=== PATIENT | female | born 1950 | race Two or more races ===

== ENCOUNTER 2018-01-04 11:23 | Inpatient (IN) | payer MEDICAID ==
[~2018-01-04] VITALS: Ht 157.5 cm; Wt 64.4 kg
--- NOTE | 2018-01-04 11:40 | NUR ---
Recieved pt to ed bed 14 at this time. Pt was bb RA fro [facility] for SOB and fever x 1 day. Pt was hypoxic at 82%RA upon assessment. Placed patient on O2 via nasal cannula. Afebrile at this time. Pt is a/ox3, placed on contcardiac and pox monitoring. All needs are attended, kept warm and comfortable. Noted a 2 lumen PICC line to RT upper arm.
[2018-01-04 12:07] LABS: CALCIUM, SERUM 8.2 mg/dL (8.5-10.1); CARBON DIOXIDE 29 mmol/L (21-32); CHLORIDE 103 mmol/L (98-107); CREATININE 0.5 mg/dL (0.6-1.3); GLUCOSE 156 mg/dL (74-106); POTASSIUM 3.8 mmol/L (3.5-5.1); SODIUM SERUM 138 mmol/L (136-145); UREA NITROGEN, BLOOD 9 mg/dL (7-18)
[2018-01-04 12:13] LABS: ALANINE AMINOTRANSFERASE 71 U/L (12-78); ALBUMIN 2.3 g/dL (3.4-5.0); ALKALINE PHOSPHATASE 202 U/L (46-116); ASPARTATE AMINOTRANSFERASE 33 U/L (15-37); BILIRUBIN,DIRECT 0.2 mg/dL (0.0-0.2); BILIRUBIN,TOTAL 0.4 mg/dL (0.2-1.0); TOTAL PROTEIN, SERUM 6.5 g/dL (6.4-8.2)
[2018-01-04 12:15] LABS: INR 1.44 (0.85-1.15); TROPONIN I < 0.017 ng/mL (0.00-0.056)
[2018-01-04 12:17] LABS: BASOPHILS % (AUTO) 0.3 % (0.0-2.0); EOSINOPHILS % (AUTO) 0.6 % (0.0-6.0); HEMATOCRIT 25 % (33-45); HEMOGLOBIN 8.2 g/dL (11.5-14.8); LYMPHOCYTES # (AUTO) 0.6 /CMM (0.8-4.8); LYMPHOCYTES % (AUTO) 11.3 % (20.0-44.0); MEAN CORPUSCULAR HGB CONC 33 g/dl (31.0-36.0); MEAN CORPUSCULAR VOLUME 90 fL (82-100); MONOCYTES # (AUTO) 0.3 /CMM (0.1-1.30); MONOCYTES % (AUTO) 5.3 % (2.0-12.0); NEUTROPHILS # (AUTO) 4.4 /CMM (1.8-8.9); NEUTROPHILS % (AUTO) 82.5 % (43.0-81.0); PLATELET COUNT (AUTO) 229 /CMM (150-450); RDW COEFFICIENT OF VARIATION 14.2 (11.5-15.0); RED BLOOD CELL COUNT(AUTO) 2.78 MIL/uL (4.0-5.2); WHITE BLOOD COUNT (AUTO) 5.4 K/uL (4.3-11.0)
[2018-01-04] MEDS ORDERED: PANT40TA2 PO (12:35)
[2018-01-04] MEDS ORDERED: NA P133E RC (12:35)
[2018-01-04] MEDS ORDERED: BENA40TA8 PO (12:35)
[2018-01-04] MEDS ORDERED: ACET-868 PO (12:35)
[2018-01-04] MEDS ORDERED: ASPI-1169 PO (12:35)
[2018-01-04] MEDS ORDERED: MULT-213 PO (12:35)
[2018-01-04] MEDS ORDERED: AMLO10TA6 PO (12:35)
[2018-01-04] MEDS ORDERED: GABA-534 PO (12:35)
[2018-01-04] MEDS ORDERED: BISA10SU8 RC (12:35)
[2018-01-04] MEDS ORDERED: ASCO500T9 PO (12:35)
[2018-01-04] MEDS ORDERED: ACET-907 PO (12:35)
[2018-01-04] MEDS ORDERED: MAGN400O6 PO (12:35)
[2018-01-04] MEDS ORDERED: INSU100I26 SQ ×2 (12:35)
[2018-01-04] MEDS ORDERED: ZINC220T PO (12:35)
[2018-01-04] MEDS ORDERED: SODI1TAB3 PO (12:35)
[2018-01-04] MEDS ORDERED: ATOR40TA PO (12:35)
--- NOTE | 2018-01-04 13:03 | NUR ---
CALLED NURSE SUP FOR TELE BED
--- NOTE | 2018-01-04 13:26 | NUR ---
PAGED EPIC FOR PANEL
[2018-01-04] MEDS ORDERED: VANCOMYCIN 1 GM in IV D5W 250 ML IV ONE (14:00)
[2018-01-04] MEDS ORDERED: PIPERACILLIN /TAZOBACTAM 3.375 G in IV D5W 50 ML IV ONE (14:00)
--- NOTE | 2018-01-04 14:46 | NUR ---
REPORT GIVEN TO HINA MARTINEZ FOR CONT OF CARE.
--- NOTE | 2018-01-04 15:20 | NUR ---
PT TRANSFERRED TO FLOOR VIA ACLS PROTOCOL.
[2018-01-04 15:52] VITALS: BP 117/65
--- NOTE | 2018-01-04 16:15 | NUR ---
ADMISSION NOTES PATIENT ADMITTED FROM ER TELE ON Dx. OF PNEUMONIA. PATIENT FEMALE, ALBANIAN SPEAKER, A/O X3. TELE MONITOR ON . PATIENT ON 02-2L NC, NO C/O ACUTE RESPIRATORY DISTRESS, NO SOB AT THIS TIME. PATIENT WAS C/O PAIN HEADACHE AND RADIATING TO DOWN NECK AREA. V/S TAKEN BP-117/65, P-82, R-18, T-98.2, O2-2L NC. SKIN ASSESSMENT DONE. PATIENT HAS LEFT BKA, RIGHT FOOT 3-RD, AND 4-TH TOES AMPUTATED, PICTURE TAKEN, ALSO PATIENT HAS A EDEMA LEFT ARM, AND RIGHT FOOT. PICC LINE ON RIGHT UPPER ARM INTACT. PATIENT INCONTINENT USING DIAPER. NEEDS ATTENDED AND ANTICIPATED. CALL LIGHT WITHIN TO REACH. HANNA DISINTEGRATOR OPERATOR AWARE OF NEW PATIENT AND NEW MEDICATION. CONTINUED MONITORING.,
[2018-01-04 16:40] VITALS: BP 117/65
[2018-01-04] MEDS ORDERED: ACETYLCYSTEINE 10% SOLN 400 MG/4 ML VIAL NEB SCH (17:30)
[2018-01-04] MEDS ORDERED: KETOROLAC TROMETHAMINE INJ 30 MG/ML VIAL IV ONE (19:00)
--- NOTE | 2018-01-04 19:01 | NUR ---
RN NOTES PATIENT WAS C/O HEADACHE, AND PAIN GOING DOWN TO NECK AREA / PER PATIENT REQUEST. NOTIFIED HANNA HARPOONER AND GET ORDER TORADOL 10 MG IV X1 NOW. ORDER TAKEN AND CARRIED OUT.
--- NOTE | 2018-01-04 19:10 | NUR ---
RN NOTES PATIENT STABLE EATING DINNER AT THIS TIME. ENDORSED ONCOMING NURSER FOR ADAM.
[2018-01-04] MEDS ORDERED: KETOROLAC TROMETHAMINE INJ 30 MG/ML VIAL IV PRN (19:30)
[2018-01-04] MEDS ORDERED: DEXTROSE 50%-WATER 50 ML DISP.SYRIN IV PRN (19:30)
[2018-01-04 19:37] LABS: C-REACTIVE PROTEIN 2.5 mg/dL (0.0-0.9)
--- NOTE | 2018-01-04 19:45 | NUR ---
HALL CLEANER NOTES RECEIVED PT SITTING UPRIGHT IN BED. AWAKE AND RESPONSIVE. RESPIRATIONS ARE EVEN AND UNLABORED, NOT IN ANY ACUTE DISTRESS NOTED. DENIES ANY PAIN AT THIS TIME. IV SITE INTACT, DRESSING KEPT CLEAN AND DRY. SAFETY MEASURES ARE IN PLACE. BED IS KEPT IN ITS LOCKED POSITION. WILL CONTINUE TO MONITOR AND REPOSITION THROUGHOUT SHIFT.
[2018-01-04 20:00] VITALS: BP 130/63
[2018-01-04] MEDS: LEVOFLOXACIN 500 MG /D5W 100ML 500 MG in PREMIX 1 EA IV SCH (20:36)
[2018-01-04] MEDS ORDERED: PIPERACILLIN /TAZOBACTAM 3.375 G in IV NS 0.9% 50 ML IV SCH (21:00)
[2018-01-04] MEDS: BLOOD SUGAR DIAGNOSTIC 1 EACH STRIP IN SCH (22:06)
[2018-01-04] MEDS: INSULIN REGULAR, HUMAN 100 UNIT/ML 3 ML VIAL SQ PRN (22:10)
[2018-01-05] VITALS: BP 121/64
[2018-01-05] MEDS: ACETYLCYSTEINE 10% SOLN 400 MG/4 ML VIAL NEB SCH ×4 (00:30→15:30)
[2018-01-05] MEDS: IPRATROPIUM NEB FS 0.5 MG/2.5 ML AMPUL.NEB NEB PRN (03:14)
[2018-01-05] MEDS: ALBUTEROL HALF STRENGTH 1.25 MG/3 ML VIAL.NEB NEB PRN (03:14)
[2018-01-05 04:00] VITALS: BP 144/75
--- NOTE | 2018-01-05 06:12 | NUR ---
SPIRITUAL MINISTER CLOSING NOTES ALL DUE MEDS GIVEN, NEEDS MET AND RENDERED. AWAKE AND RESPONSIVE, RESPIRATIONS ARE EVEN AND UNLABORED, NOT IN ANY ACUTE DISTRESS NOTED. DENIES ANY PAIN AT THIS TIME. BILATERAL HEELS AND ELBOWS ARE KEPT OFFLOADED, REPOSITIONED Q2H TO PREVENT FURTHER SKIN INJURIES AND FOR COMFORT. PICC LINE TO FILIPPO INTACT, DRESSING KEPT CLEAN AND DRY. SAFETY MEASURES ARE IN PLACE. BED IS IN ITS LOCKED AND LOWEST POSITION. REMINDED PT TO USE CALL LIGHT WHEN ASSISTANCE IS NEEDED, CALL LIGHT IS LEFT WITHIN REACH. WILL ENDORSE TO NEXT SHIFT FOR CONTINUITY OF CARE.
[2018-01-05] MEDS: BLOOD SUGAR DIAGNOSTIC 1 EACH STRIP IN SCH ×4 (06:36→22:39)
[2018-01-05 07:27] LABS: CALCIUM, SERUM 8.1 mg/dL (8.5-10.1); CREATININE 0.6 mg/dL (0.6-1.3); MAGNESIUM 1.9 mg/dL (1.8-2.4); PHOSPHORUS 4.1 mg/dL (2.5-4.9); POTASSIUM 3.9 mmol/L (3.5-5.1)
[2018-01-05 07:28] LABS: BASOPHILS % (AUTO) 0.1 % (0.0-2.0); HEMATOCRIT 28 % (33-45); HEMOGLOBIN 9.2 g/dL (11.5-14.8); LYMPHOCYTES # (AUTO) 0.7 /CMM (0.8-4.8); LYMPHOCYTES % (AUTO) 9.7 % (20.0-44.0); MEAN CORPUSCULAR HGB CONC 33 g/dl (31.0-36.0); MEAN CORPUSCULAR VOLUME 90 fL (82-100); MONOCYTES # (AUTO) 0.3 /CMM (0.1-1.30); MONOCYTES % (AUTO) 4.9 % (2.0-12.0); NEUTROPHILS # (AUTO) 5.8 /CMM (1.8-8.9); NEUTROPHILS % (AUTO) 84.3 % (43.0-81.0); PLATELET COUNT (AUTO) 238 /CMM (150-450); RDW COEFFICIENT OF VARIATION 14.5 (11.5-15.0); RED BLOOD CELL COUNT(AUTO) 3.07 MIL/uL (4.0-5.2); WHITE BLOOD COUNT (AUTO) 6.9 K/uL (4.3-11.0)
--- NOTE | 2018-01-05 07:41 | NUR ---
DIRECTOR AGRICULTURAL SERVICES/OPENING NOTES RECEIVED PT. IN BED A&OX4. BREATHING UNLABORED ON OXYGEN AT 4L/MIN VIA NASAL CANNULA. PT. C/O PAIN LEFT SIDE OF HEAD. PAIN WAS ASSESSED, AND OFFERED PAIN MEDICATION. PT. HAS A CENTRAL LINE. BED IS IN LOWEST, AND LOCKED POSITION. 2 SIDE RAILS UP, AND CALL LIGHT WITHIN REACH. INSTRUCTED PT. TO USE CALL LIGHT FOR ASSISTANCE. ALL NEEDS MET. WILL CONTINUE TO ASSESS AND MONITOR.
[2018-01-05 08:00] VITALS: BP 143/76
--- NOTE | 2018-01-05 10:30 | NUR ---
RN NOTES PT. WAS SEEN AND EXAMINED BY VENANCIO, WOUND CARE, RN. CLEANED RIGHT FOOT WOUND WITH NORMAL SALINE, APPLIED XERFORM, MEPILEX AND SECURED WITH KRELIX WRAP. PICTURE TAKEN OF THE RIGHT ACHILLES TENDON REGION DUE TO SCAB ON ASSESSMENT.
--- NOTE | 2018-01-05 10:47 | NUR ---
WOUND CARE CONSULT: PT PRESENTS WITH RT FOOT SURGICAL SITE, MULTIPLE SCARS ON SACRAL/BUTTOCKS AREAS AND ON LATERAL LOWER LEGS, RASH TO LOWER BACK, PRESENT ON ADMISSION. LEFT LOWER LEG HEALED STUMP NOTED. RECOMMENDATIONS MADE FOR SKIN PROTECTION AND WOUND CARE. RECOMMEND SURGICAL/DPM CONSULT. WILL SEE PRN. CURRENT HOWARD SCORE IS 13. MD IN AGREEMENT WITH PLAN OF CARE. Addendum: 01/05/18 at 1049 by VENANCIO FITZPATRICK WNDNU Amended: Links added.
[2018-01-05] MEDS ORDERED: Z GUARD REMEDY 2 OZ OINT TP PRN (11:00)
[2018-01-05] MEDS: Z GUARD REMEDY 2 OZ OINT TP SCH (12:05)
[2018-01-05] MEDS: CLOTRIMAZOLE 1% 15 GM TUBE TP SCH ×2 (12:05→17:04)
[2018-01-05 16:00] VITALS: BP 150/70
[2018-01-05] MEDS: BOOST GLUCOSE CONTROL VANILLA 237 ML BOX PO SCH (17:03)
[2018-01-05] MEDS: INSULIN REGULAR, HUMAN 100 UNIT/ML 3 ML VIAL SQ PRN ×2 (17:14→22:42)
--- NOTE | 2018-01-05 18:16 | NUR ---
RN NOTES TRANSFER/CLOSING NOTES PT. LEFT 3RD FLOOR WITH JUAN CRUZ AND JOHN CEBALLOS IN MEDICALLY STABLE CONDITION. PT. WAS TRANSFERRED TO 2ND FLOOR TO ROOM 208 BED 1, FROM ROOM 309 BED 1 WITHOUT COMPLICATIONS, REPORT AND CHART WAS HANDED OVER TO WILIAN. PT. IS IN BED A&OX4. BREATHING UNLABORED ON ROOM AIR. NO S/S OF SOB. NO S/S OF ACUTE DISTRESS. IV ACCESS ON RIGHT ANTECUBITAL SITE INTACT, AND PATENT. ALL NEEDS MET. WILL ENDORSE REPORT TO NURSE. Addendum: 01/05/18 at 1824 by MITUL RAMIREZ RN CORRECTION: NOTE FOR DIFFERENT PATIENT ABOVE.
--- NOTE | 2018-01-05 18:50 | NUR ---
RN CLOSING NOTES PT. IS IN BED A&OX4. BREATHING UNLABORED ON OXYGEN AT 3L/MIN VIA NASAL CANNULA. PT. HAS A CENTRAL LINE INTACT AND PATENT. WOUND CARE CONSULT PERFORMED, AND WOUND CARE PERFORMED AT BEDSIDE, PT. TOLERATED WELL. BED IS IN LOWEST, AND LOCKED POSITION. 2 SIDE RAILS UP, AND CALL LIGHT WITHIN REACH. INSTRUCTED PT. TO USE CALL LIGHT FOR ASSISTANCE. ALL NEEDS MET. WILL ENDORSE REPORT TO NURSE.
--- NOTE | 2018-01-05 19:15 | NUR ---
MS RN OPENING NOTE RECEIVED PATIENT IN BED, ALERT ORIENTED X3, ON 3L OXYGEN VIA NASAL CANNULA, RESPIRATIONS EVEN AND UNLABORED, IN NO APPARENT DISTRESS OR DISCOMFORT, DENIES PAIN AND SOB AT THIS TIME. PATIENT IS TAJIK SPEAKING MAINLY BUT ABLE TO COMMUNICATE NEEDS IN ALBANIAN WELL. PATIENT WITH RIGHT UPPER ARM PICC LINE, PATENT AND INTACT. PATIENT ON BEDREST, INCONTINENT WITH DIAPER. KEPT CLEAN AND COMFORTABLE. PATIENT TO BE TRANSFERRED TO [facility] UNIT ON A DIFFERENT FLOOR ANY MOMENT. SAFETY MEASURES IN PLACE, BED IN LOW LOCKED POSITION, SIDE RAILS UPX2, CALL LIGHT WITHIN EASY REACH WILL CONTINUE TO MONITOR UNTIL TRANSFERRED.
[2018-01-05 20:30] VITALS: BP 144/73
--- NOTE | 2018-01-05 20:30 | NUR ---
MS RN NOTE PT. WAS TRANSFERRED TO 2ND FLOOR TO ROOM 200 BED 1, FROM ROOM 308 BED 2 WITHOUT COMPLICATIONS, WITH THE ESCORT OF JUAN RUSSO IN CHARGE AND JOHN CORDERO. REPORT AND CHART WAS GIVEN TO JUAN EDGAR. TRANSFERRED PATIENT IN BED A&OX4. ON 3L OF OXYGEN TOLERATING WELL, NO SIGN OF APPARENT DISTRESS OR DISCOMFORT. DENIES SOB AND PAIN AT THIS MOMENT. RIGHT UPPER ARM PICC LINE, PATENT AND INTACT. IN STABLE CONDITION, ALL NEEDS ATTENDED AND MET. SAFETY MEASURES OBSERVED AND APPLIED AT ALL TIMES.
--- NOTE | 2018-01-05 20:35 | NUR ---
MS/RN OPENING NOTES PT RECEIVED FROM 3W ROOM 308-2. PT IS HEBREW SPEAKING, A/OX3. PLACED ON 4L O2 VIA NC, BREATHING EVEN AND UNLABORED. DENIES SOB OR PAIN AT THIS TIME. FILIPPO PICC LINE PATENT AND INTACT. DRESSING TO RIGHT FOOT C/D/I. ORIENTED PT TO ROOM AND CALL LIGHT AND MADE AWARE OF WHAT ROOM AND FLOOR SHE IS NOW ON. BED IN LOW/LOCKED POSITION WITH CALL LIGHT IN REACH. SIDE RAILS UPX2. WILL CONTINUE TO MONITOR
[2018-01-05] MEDS: LEVOFLOXACIN 500 MG /D5W 100ML 500 MG in PREMIX 1 EA IV SCH (20:57)
[2018-01-05 21:00] VITALS: BP 144/73
--- NOTE | 2018-01-05 22:00 | NUR ---
MS/RN NOTES BLOOD CWCEO=[id number], ADMINISTERED 3 UNITS OF INSULIN PER SLIDING SCALE. SNACKS ENCOURAGED. WILL MONITOR FOR S/S OF HYPO/HYPERGLYCEMIA.
--- NOTE | 2018-01-06 02:00 | NUR ---
MS/RN NOTES ASKED DR. HOUGH IF SHE COULD REVIEW AND RECONCILE PT'S HOME MEDICATIONS.
[2018-01-06] MEDS ORDERED: HYDROGEL DRESSING 90 GM TUBE TP PRN (06:30)
[2018-01-06] MEDS: BLOOD SUGAR DIAGNOSTIC 1 EACH STRIP IN SCH ×4 (06:52→21:36)
[2018-01-06] MEDS: INSULIN REGULAR, HUMAN 100 UNIT/ML 3 ML VIAL SQ PRN ×4 (06:52→21:39)
--- NOTE | 2018-01-06 07:00 | NUR ---
REPORT RECEIVED AT THE BEDSIDE. PATIENT IS SLEEPING. NO SOB OR DISTRESS NOTED AT THIS TIME. PATIENT DOES NOT APPEAR TO BE IN PAIN, NO FACIAL GRIMACE NOTED. BED IN A LOW POSITION, CALL LIGHT WITHIN PATIENT REACH. WILL CONTINUE TO MONITOR.
--- NOTE | 2018-01-06 07:15 | NUR ---
MS/RN CLOSING NOTES PT AWAKE, A/OX3. MARSHALLESE SPEAKING. ON 3L O2 VIA NC, BREATHING EVEN AND UNLABORED. DENIES SOB AND PAIN AT THIS TIME. FILIPPO PICC LINE PATENT AND INTACT. LEFT BKA STUMP AND RIGHT HEEL ELEVATED AT ALL TIMES. TURNED/REPOSITIONED Q2H. KEPT PT CLEAN THROUGHOUT SHIFT. ALL NEEDS MET, NO SIGNIFICANT CHANGES OVERNIGHT. PT SIGNED CONSENT FOR RIGHT FOOT WOUND DEBRIDEMENT, PT SIGNED WITH ONLY AN "X". WITNESSED BY JUAN HORN. PT VERBALIZED UNDERSTANDING OF PROCEDURE AND STATED THAT "THE DOCTOR EXPLAINED THE PROCEDURE YESTERDAY". BED IN LOW/LOCKED POSITION WITH CALL LIGHT IN REACH. SIDE RAILS UPX2. ENDORSED TO DAY SHIFT JUAN MEDINA.
[2018-01-06] MEDS: ALBUTEROL HALF STRENGTH 1.25 MG/3 ML VIAL.NEB NEB PRN ×2 (07:38→15:45)
[2018-01-06] MEDS: ACETYLCYSTEINE 10% SOLN 400 MG/4 ML VIAL NEB SCH ×3 (07:38→23:48)
[2018-01-06 08:00] VITALS: BP 145/71
[2018-01-06] MEDS: BOOST GLUCOSE CONTROL VANILLA 237 ML BOX PO SCH ×2 (08:00→16:59)
[2018-01-06] MEDS: HYDROGEL DRESSING 90 GM TUBE TP SCH (09:17)
[2018-01-06] MEDS: CLOTRIMAZOLE 1% 15 GM TUBE TP SCH ×2 (09:17→16:59)
[2018-01-06] MEDS: Z GUARD REMEDY 2 OZ OINT TP SCH (09:17)
--- NOTE | 2018-01-06 09:25 | NUR ---
PT REFUSING BOOST. STATES THAT SHE IS NOT FEELING WELL AND JUST DOESN'T WANT IT NOW.
--- NOTE | 2018-01-06 09:27 | NUR ---
PREPAIRED CONSENT FOR US GUIDED THORACENTESIS. WITH THE HELP OF JOHN COWAN, TRANSLATING FOR THE PATIENT IN ESTONIAN, WE EXPLAINED THE PROCEDURE AND IMPORTANCE TO THE PATIENT. THE PATIENT STATES SHE DOES NOT WANT TO SIGN ANYTHING UNTIL HER DAUGHTER COMES IN TO SPEAK WITH THE NURSE. ASKED THE PATIENT IF I COULD CALL HER DAUGHTER TO ASK. PATIENT STATES SHE WANTS HER DAUGHTER HERE WHEN SHE SIGNS.
--- NOTE | 2018-01-06 09:41 | NUR ---
CALLED PATIENT'S DAUGHTER NAZ TO EXPLAIN THE THORACENTESIS PROCEDURE AND ASK WHEN SHE WOULD BE COMING IN TO SEE HER MOTHER AND SEE IF SHE WOULD SIGN THE CONSENT FOR THE PROCEDURE. DAUGHTER STATES SHE IS TAKING CARE OF SOME ERRANDS AT THE MOMENT, BUT WILL BE IN AROUND LUNCH TIME TO SEE HER MOTHER AND TALK ABOUT THE PROCEDURE. WILL FOLLOW UP WHEN DAUGHTER IS AVAILABLE.
--- NOTE | 2018-01-06 09:44 | NUR ---
CALLED [employer] AND SPOKE TO MARYANN. EXPLAINED THAT THE PATIENT IS NOT YET WILLING TO SIGN THE CONSENT AND WANTS TO WAIT FOR HER DAUGHTER. MARYANN SAYS TO INFORM THEM WHEN THE CONSENT IS SIGNED AND THEN THEY WILL PREPARE. MARYANN STATES THAT IF THE CONSENT ISN'T SIGNED UNTIL AFTER TWO PM THAT THE PROCEDURE WILL HAVE TO BE RESCHEDULED FOR TOMORROW. WILL INFORM
--- NOTE | 2018-01-06 09:45 | NUR ---
0945 PER JUAN MENDES CONSENT NOT SIGNED FOR THORACENTESIS. RN WILL ADVISE WHEN CONSENT IS SIGNED
[2018-01-06 09:51] LABS: BASOPHILS % (AUTO) 0.5 % (0.0-2.0); EOSINOPHILS % (AUTO) 0.9 % (0.0-6.0); HEMATOCRIT 28 % (33-45); HEMOGLOBIN 9.5 g/dL (11.5-14.8); LYMPHOCYTES # (AUTO) 0.9 /CMM (0.8-4.8); LYMPHOCYTES % (AUTO) 10.2 % (20.0-44.0); MEAN CORPUSCULAR HGB CONC 34 g/dl (31.0-36.0); MEAN CORPUSCULAR VOLUME 88 fL (82-100); MONOCYTES # (AUTO) 0.3 /CMM (0.1-1.30); MONOCYTES % (AUTO) 3.8 % (2.0-12.0); NEUTROPHILS # (AUTO) 7.2 /CMM (1.8-8.9); NEUTROPHILS % (AUTO) 84.6 % (43.0-81.0); PLATELET COUNT (AUTO) 263 /CMM (150-450); RDW COEFFICIENT OF VARIATION 13.3 (11.5-15.0); RED BLOOD CELL COUNT(AUTO) 3.12 MIL/uL (4.0-5.2); WHITE BLOOD COUNT (AUTO) 8.5 K/uL (4.3-11.0)
--- NOTE | 2018-01-06 10:46 | NUR ---
TALKED TO DR TOWNSEND ON FLOOR. INFORMED MD ABOUT SITUATION WITH PATIENT CONSENT AND THE NEED FOR A MED RECON. MD SPOKE TO DAUGHTER OVER THE PHONE WITH THE PATIENT, PATIENT AGREES TO SIGN. STATES HE WILL TAKE CARE OF THE MED REC.
[2018-01-06 11:13] LABS: CALCIUM, SERUM 8.2 mg/dL (8.5-10.1); CREATININE 0.5 mg/dL (0.6-1.3); POTASSIUM 3.4 mmol/L (3.5-5.1)
[2018-01-06] MEDS ORDERED: NA PHOS,M-B/NA PHOS,DI-BA 1 EA ENEMA RC PRN (12:30)
[2018-01-06] MEDS ORDERED: BISACODYL SUPP (10 MG) 10 MG/SUPP.RECT SUPP.RECT RC PRN (12:30)
[2018-01-06] MEDS ORDERED: POTASSIUM CHLORIDE 20 MEQ TAB.PRT.SR PO ONE (12:30)
--- NOTE | 2018-01-06 12:37 | NUR ---
WAS ABLE TO GIVE PT POTASSIUM PILL. INFORMED PT OF OTHER MEDICATIONS COMING, NEURONTIN, PATIENT STATES "PLEASE NO I DON'T WANT IT NOW." INFORMED PATIENT OF THE IMPORTANCE, BUT REFUSING.
[2018-01-06] MEDS: GABAPENTIN 300 MG CAPSULE PO SCH ×2 (13:00→16:59)
[2018-01-06] MEDS: SODIUM CHLORIDE 1000 MG TABLET.SOL PO SCH ×2 (13:00→16:59)
[2018-01-06] MEDS: FUROSEMIDE 40 MG/4 ML VIAL IV SCH (13:10)
[2018-01-06] MEDS: ONDANSETRON HCL/PF 4 MG/2 ML VIAL IV PRN (13:18)
--- NOTE | 2018-01-06 14:47 | NUR ---
RECEIVED WORD FROM DR TOWNSEND. OK TO DO IN AND OUT CATH TO OBTAIN URINE SAMPLE. PATIENT IS REFUSING. EXPLAINED THE IMPORTANCE OF THE PROCEDURE TO THE PATIENT, BUT REFUSING. SHE STATES THAT THE LAST TIME SHE HAD ANY CATHETER PLACED, SHE GOT AN INFECTION.
[2018-01-06 16:00] VITALS: BP 102/70
[2018-01-06] MEDS: MAGNESIUM HYDROXIDE 30 ML UDC PO PRN (16:59)
--- NOTE | 2018-01-06 19:08 | NUR ---
NO SIGNIFICANT CHANGES IN PATIENT CONDITION THROUGHOUT THE SHIFT. NO SOB OR DISTRESS NOTED AT THIS TIME. PATIENT DENIES PAIN. BED IN A LOW POSITION, CALL LIGHT WITHIN PATIENT REACH. WILL ENDORSE FOR ADAM.
--- NOTE | 2018-01-06 19:30 | NUR ---
RN NOTES RECEIVED PATIENT IN BED AWAKE, AO X 3, ABLE TO MAKE NEEDS KNOWN. NO ACUTE DISTRESS NOTED. DENIES ANY PAIN AT THIS TIME. PICC LINE PATENT, INTACT; FLUSHED. RIGHT FOOT DRESSING INTACT. SAFETY REMINDERS GIVEN. ON LOW BED WITH BILATERAL UPPER SIDE RAILS UP. CALL MERCADO WITHIN EASY REACH. WILL CONTINUE TO MONITOR.
[2018-01-06 20:00] VITALS: BP 119/73
[2018-01-06] MEDS: LEVOFLOXACIN 500 MG /D5W 100ML 500 MG in PREMIX 1 EA IV SCH (20:48)
[2018-01-06] MEDS: ATORVASTATIN 40 MG TABLET PO SCH (21:36)
[2018-01-06] MEDS: IPRATROPIUM NEB FS 0.5 MG/2.5 ML AMPUL.NEB NEB PRN (23:48)
--- NOTE | 2018-01-07 00:03 | NUR ---
administered mucomyst with atro Addendum: 01/07/18 at 0010 by ELVIS MEADOWS RT Amended: Links added.
--- NOTE | 2018-01-07 06:00 | NUR ---
RN NOTES PATIENT ASLEEP, EASILY AROUSABLE. RESPIRATIONS EVEN. NO SIGNS OF PAIN NOTED. DUE MEDS GIVEN WITH NO ASE NOTED. NEEDS ATTENDED. KEPT CLEAN AND DRY. SAFETY PRECAUTIONS AND COMFORT MEASURES IN PLACE. WILL GIVE REPORT TO DAY SHIFT FOR CONTINUITY OF CARE.
[2018-01-07] MEDS: BLOOD SUGAR DIAGNOSTIC 1 EACH STRIP IN SCH ×4 (06:41→21:29)
[2018-01-07] MEDS: ACETYLCYSTEINE 10% SOLN 400 MG/4 ML VIAL NEB SCH ×3 (07:15→23:30)
--- NOTE | 2018-01-07 07:16 | NUR ---
MUCOMYST NOT AV. WILL F/U WITH PHARMACY. RN AWARE.
--- NOTE | 2018-01-07 07:54 | NUR ---
MS RN OPENING NOTES RECEIVED PT FROM NIGHTSHIFT NURSE IN STABLE CONDITION. PT IS A.O X3. NO SOB OR SIGNS OF DISTRESS NOTED. BREATHING IS EVEN AND UNLABORED. PT IS ON 2L VIA NC AND SATING WELL. NO COUGH NOTED AT THIS TIME. DRESSING TO RIGHT LOWER EXTREMITY NOTED TO BE CLEAN, DRY, AND INTACT. RIGHT UPPER ARM PICC NOTED TO BE PATENT AND INTACT. NO REDNESS OR SIGNS OF INFILTRATION NOTED. BED IN LOW LOCKED POSITION, SIDE RAILS UP X2, CALL LIGHT WITHIN REACH. WILL CONTINUE TO MONITOR
[2018-01-07 08:00] VITALS: BP 131/67
[2018-01-07] MEDS: CLOTRIMAZOLE 1% 15 GM TUBE TP SCH ×2 (08:28→17:12)
[2018-01-07] MEDS: BOOST GLUCOSE CONTROL VANILLA 237 ML BOX PO SCH ×2 (08:28→17:00)
[2018-01-07] MEDS: Z GUARD REMEDY 2 OZ OINT TP SCH (08:29)
[2018-01-07] MEDS: HYDROGEL DRESSING 90 GM TUBE TP SCH (08:29)
[2018-01-07] MEDS: ACETAMINOPHEN W/ CODEINE#3 1 EA TABLET PO SCH (08:31)
[2018-01-07] MEDS: MULTIVIT, IRON, MIN NO. 8, FA 1 TAB PO SCH (08:31)
[2018-01-07] MEDS: GABAPENTIN 300 MG CAPSULE PO SCH ×3 (08:32→17:06)
[2018-01-07] MEDS: AMLODIPINE BESYLATE 10 MG TABLET PO SCH (08:32)
[2018-01-07] MEDS: ZINC SULFATE 220 MG CAPSULE PO SCH (08:32)
[2018-01-07] MEDS: SODIUM CHLORIDE 1000 MG TABLET.SOL PO SCH ×3 (08:32→17:06)
[2018-01-07] MEDS: FUROSEMIDE 40 MG/4 ML VIAL IV SCH (08:33)
[2018-01-07] MEDS: BENAZEPRIL HCL 20 MG TABLET PO SCH (08:33)
[2018-01-07] MEDS: ASPIRIN 81 MG TAB.CHEW PO SCH (08:33)
[2018-01-07] MEDS: ASCORBIC ACID 500 MG TABLET PO SCH (08:33)
[2018-01-07] MEDS: PANTOPRAZOLE 40 MG TABLET.DR PO SCH (08:33)
[2018-01-07] MEDS: MAGNESIUM HYDROXIDE 30 ML UDC PO PRN (09:04)
[2018-01-07 09:38] LABS: CALCIUM, SERUM 8.1 mg/dL (8.5-10.1); CREATININE 0.5 mg/dL (0.6-1.3); POTASSIUM 4.2 mmol/L (3.5-5.1)
[2018-01-07 09:47] LABS: BASOPHILS % (AUTO) 0.6 % (0.0-2.0); EOSINOPHILS % (AUTO) 1.2 % (0.0-6.0); HEMATOCRIT 28 % (33-45); HEMOGLOBIN 9.4 g/dL (11.5-14.8); LYMPHOCYTES # (AUTO) 0.8 /CMM (0.8-4.8); LYMPHOCYTES % (AUTO) 13.6 % (20.0-44.0); MEAN CORPUSCULAR HGB CONC 34 g/dl (31.0-36.0); MEAN CORPUSCULAR VOLUME 90 fL (82-100); MONOCYTES # (AUTO) 0.4 /CMM (0.1-1.30); NEUTROPHILS # (AUTO) 4.8 /CMM (1.8-8.9); NEUTROPHILS % (AUTO) 78.6 % (43.0-81.0); PLATELET COUNT (AUTO) 251 /CMM (150-450); RDW COEFFICIENT OF VARIATION 13.5 (11.5-15.0); RED BLOOD CELL COUNT(AUTO) 3.13 MIL/uL (4.0-5.2); WHITE BLOOD COUNT (AUTO) 6.1 K/uL (4.3-11.0)
[2018-01-07] MEDS: INSULIN REGULAR, HUMAN 100 UNIT/ML 3 ML VIAL SQ PRN ×3 (12:29→21:30)
[2018-01-07 16:00] VITALS: BP 111/60
--- NOTE | 2018-01-07 19:30 | NUR ---
RN NOTES RECEIVED PATIENT IN BED AWAKE, AO X 3, ABLE TO MAKE NEEDS KNOWN. NO ACUTE DISTRESS NOTED. DENIES ANY PAIN AT THIS TIME. NO SYMPTOMS OF HYPER/HYPOGLYCEMIA. FILIPPO PICC LINE PATENT, INTACT; FLUSHED. RIGHT FOOT DRESSING INTACT. SAFETY REMINDERS GIVEN. ON LOW BED WITH BILATERAL UPPER SIDE RAILS UP. CALL MERCADO WITHIN EASY REACH. WILL CONTINUE TO MONITOR.
--- NOTE | 2018-01-07 19:46 | NUR ---
MS RN CLOSING NOTES PT REMAINS IN STABLE CONDITION. ALL NEEDS WERE MET DURING SHIFT AND ORDERS CARRIED OUT ACCORDINGLY. ALL DUE MEDS GIVEN. WOUND AND SKIN CARE RENDERED ORDERED. PICC LINE CARE RENDERED. PICC REMAINS PATENT AND INTACT. BLOOD SUGARS REGULATED WITH INSULIN ADMINISTRATION. PT AWAITING TO BE CLEARED BY DR. GARNER FOR D/C. NO D/C ORDER AT THIS TIME. SRUTHI THE SCANNING TECH MADE AWARE. SAFETY MEASURES REMAIN IN PLACE. WILL ENDORSE TO NIGHTSHIFT NURSE FOR ADAM
[2018-01-07] MEDS: LEVOFLOXACIN (500MG) 500 MG TABLET PO SCH (19:59)
[2018-01-07 20:00] VITALS: BP 101/54
[2018-01-07] MEDS: ATORVASTATIN 40 MG TABLET PO SCH (21:32)
[2018-01-08] MEDS: BLOOD SUGAR DIAGNOSTIC 1 EACH STRIP IN SCH ×4 (06:35→21:32)
[2018-01-08 06:38] LABS: CALCIUM, SERUM 7.8 mg/dL (8.5-10.1); CREATININE 0.6 mg/dL (0.6-1.3); POTASSIUM 4.2 mmol/L (3.5-5.1)
[2018-01-08 06:51] LABS: BASOPHILS % (AUTO) 0.5 % (0.0-2.0); HEMATOCRIT 26 % (33-45); HEMOGLOBIN 8.8 g/dL (11.5-14.8); LYMPHOCYTES # (AUTO) 0.9 /CMM (0.8-4.8); MEAN CORPUSCULAR HGB CONC 34 g/dl (31.0-36.0); MEAN CORPUSCULAR VOLUME 89 fL (82-100); MONOCYTES # (AUTO) 0.4 /CMM (0.1-1.30); MONOCYTES % (AUTO) 5.1 % (2.0-12.0); NEUTROPHILS # (AUTO) 5.9 /CMM (1.8-8.9); NEUTROPHILS % (AUTO) 80.4 % (43.0-81.0); PLATELET COUNT (AUTO) 240 /CMM (150-450); RDW COEFFICIENT OF VARIATION 14.6 (11.5-15.0); RED BLOOD CELL COUNT(AUTO) 2.96 MIL/uL (4.0-5.2); WHITE BLOOD COUNT (AUTO) 7.4 K/uL (4.3-11.0)
--- NOTE | 2018-01-08 07:30 | NUR ---
RN OPEN NOTES RECEIVED REPORT FROM MANAGER TELEMARKETING RN. PATIENT IS IN BED. NO SIGNS AND SYMPTOMS OF DISTRESS. BED IN LOW POSITION, LOCKED AND TWO SIDE RAILS ARE UP. CALL LIGHT WITHIN REACH FOR SAFETY. WILL CONTINUE TO MONITOR PATIENT
[2018-01-08] MEDS: ACETYLCYSTEINE 10% SOLN 400 MG/4 ML VIAL NEB SCH ×3 (07:35→23:30)
[2018-01-08 08:36] VITALS: BP 131/66
[2018-01-08] MEDS: GABAPENTIN 300 MG CAPSULE PO SCH ×3 (08:38→16:42)
[2018-01-08] MEDS: ASCORBIC ACID 500 MG TABLET PO SCH (08:38)
[2018-01-08] MEDS: MULTIVIT, IRON, MIN NO. 8, FA 1 TAB PO SCH (08:38)
[2018-01-08] MEDS: SODIUM CHLORIDE 1000 MG TABLET.SOL PO SCH ×3 (08:38→16:42)
[2018-01-08] MEDS: ACETAMINOPHEN W/ CODEINE#3 1 EA TABLET PO SCH (08:38)
[2018-01-08] MEDS: ZINC SULFATE 220 MG CAPSULE PO SCH (08:38)
[2018-01-08] MEDS: PANTOPRAZOLE 40 MG TABLET.DR PO SCH (08:38)
[2018-01-08] MEDS: ASPIRIN 81 MG TAB.CHEW PO SCH (08:38)
[2018-01-08] MEDS: BENAZEPRIL HCL 20 MG TABLET PO SCH (08:39)
[2018-01-08] MEDS: FUROSEMIDE 40 MG/4 ML VIAL IV SCH (08:39)
[2018-01-08] MEDS: AMLODIPINE BESYLATE 10 MG TABLET PO SCH (08:39)
[2018-01-08] MEDS: BOOST GLUCOSE CONTROL VANILLA 237 ML BOX PO SCH ×2 (08:41→16:42)
[2018-01-08] MEDS: Z GUARD REMEDY 2 OZ OINT TP SCH (08:41)
[2018-01-08] MEDS: HYDROGEL DRESSING 90 GM TUBE TP SCH (08:41)
[2018-01-08] MEDS: CLOTRIMAZOLE 1% 15 GM TUBE TP SCH ×2 (08:41→16:42)
[2018-01-08] MEDS: INSULIN REGULAR, HUMAN 100 UNIT/ML 3 ML VIAL SQ PRN ×2 (12:16→21:35)
[2018-01-08] MEDS ORDERED: LEVO500T75 PO (12:20)
[2018-01-08] MEDS: MAGNESIUM HYDROXIDE 30 ML UDC PO PRN (15:06)
[2018-01-08 16:11] VITALS: BP 109/53
--- NOTE | 2018-01-08 18:56 | NUR ---
RN CLOSING NOTES PATIENT IS IN BED. AWAKE. NO SIGNS AND SYMPTOMS OF DISTRESS. ALL CARE WAS PROVIDED. PATIENT KEPT DRY AND CLEAN. BED IN LOW POSITION, LOCKED AND TWO SIDE RAILS ARE UP. CALL LIGHT WITHIN REACH FOR SAFETY. WILL ENDORSE TO FARM MACHINE OPERATOR NURSE.
--- NOTE | 2018-01-08 19:20 | NUR ---
MS RN NOTES RECEIVED PT IN BED, AWAKE, A/O X 3, LATVIAN SPEAKING ONLY. NO DISTRESS, NO SOB NOTED. RESPIRATION IS EVEN AND UNLABORED. NO C/O PAIN OR DISCOMFORT AT THIS TIME. NO S/S OF HYPO/ HYPERGLYCEMIA NOTED. FILIPPO PICC LINE INTACT AND PATENT. NO S/S OF INFECTION OR INFILTRATION NOTED. ALL NEEDS ATTENDED AND MET. KEPT COMFORTABLE. SAFETY PRECAUTIONS OBSERVED. CALL LIGHT WITHIN REACH. WILL CONT TO MONITOR.
[2018-01-08 20:00] VITALS: BP 109/58
[2018-01-08] MEDS: LEVOFLOXACIN (500MG) 500 MG TABLET PO SCH (21:10)
[2018-01-08] MEDS: ATORVASTATIN 40 MG TABLET PO SCH (21:10)
[2018-01-09] MEDS ORDERED: VANCOMYCIN 1 GM VIAL ONE (01:57)
[2018-01-09] MEDS ORDERED: VANCOMYCIN 1 GM in IV D5W 250 ML IV ONE (02:00)
[2018-01-09] MEDS: BLOOD SUGAR DIAGNOSTIC 1 EACH STRIP IN SCH (06:39)
[2018-01-09 06:40] LABS: BASOPHILS # (AUTO) 0.1 /CMM (0.0-0.2); BASOPHILS % (AUTO) 0.9 % (0.0-2.0); EOSINOPHILS % (AUTO) 1.9 % (0.0-6.0); HEMATOCRIT 26 % (33-45); HEMOGLOBIN 8.6 g/dL (11.5-14.8); LYMPHOCYTES # (AUTO) 0.7 /CMM (0.8-4.8); LYMPHOCYTES % (AUTO) 8.2 % (20.0-44.0); MEAN CORPUSCULAR HGB CONC 33 g/dl (31.0-36.0); MEAN CORPUSCULAR VOLUME 89 fL (82-100); MONOCYTES # (AUTO) 0.4 /CMM (0.1-1.30); MONOCYTES % (AUTO) 4.7 % (2.0-12.0); NEUTROPHILS % (AUTO) 84.3 % (43.0-81.0); PLATELET COUNT (AUTO) 237 /CMM (150-450); RDW COEFFICIENT OF VARIATION 14.1 (11.5-15.0); RED BLOOD CELL COUNT(AUTO) 2.92 MIL/uL (4.0-5.2); WHITE BLOOD COUNT (AUTO) 8.3 K/uL (4.3-11.0)
--- NOTE | 2018-01-09 06:45 | NUR ---
MS RN NOTES PT IN BED, AWAKE, A/O X 3, MALAGASY SPEAKING ONLY. NO DISTRESS, NO SOB NOTED. RESPIRATION IS EVEN AND UNLABORED. NO C/O PAIN OR DISCOMFORT AT THIS TIME. LATEST BS: 101, NO INSULIN GIVEN PER SS GIVEN. NO S/S OF HYPO/ HYPERGLYCEMIA NOTED. FILIPPO PICC LINE INTACT AND PATENT. NO S/S OF INFECTION OR INFILTRATION NOTED. ALL NEEDS ATTENDED AND MET. KEPT COMFORTABLE. SAFETY PRECAUTIONS OBSERVED. ALL DUE MEDS GIVEN. CALL LIGHT WITHIN REACH. WILL ENDORSE TO NEXT SHIFT FOR ADAM.
[2018-01-09 06:57] LABS: CALCIUM, SERUM 7.4 mg/dL (8.5-10.1); CREATININE 0.6 mg/dL (0.6-1.3); POTASSIUM 4.4 mmol/L (3.5-5.1)
--- NOTE | 2018-01-09 07:20 | NUR ---
RN OPEN NOTES RECEIVED REPORT FROM HYDRO ELECTRIC STATION OPERATOR NURSE. PATIENT IS IN BED, AWAKE. YEMENI SPEAKING. NO SIGNS AND SYMPTOMS OF DISTRESS. DENIED PAIN. VOMITING X 1 DURING THE NIGHT. WILL ADMINISTER ZOFRAN. BED IN LOW POSITION, LOCKED AND TWO SIDE RAILS ARE UP FOR SAFETY. CALL LIGHT WITHIN REACH FOR SAFETY. WILL CONTINUE TO MONITOR AND ASSESS PATIENT
[2018-01-09] MEDS: ACETYLCYSTEINE 10% SOLN 400 MG/4 ML VIAL NEB SCH (07:35)
[2018-01-09 08:00] VITALS: BP 125/65
[2018-01-09] MEDS: ONDANSETRON HCL/PF 4 MG/2 ML VIAL IV PRN (08:10)
[2018-01-09] MEDS: BOOST GLUCOSE CONTROL VANILLA 237 ML BOX PO SCH (08:12)
[2018-01-09] MEDS: CLOTRIMAZOLE 1% 15 GM TUBE TP SCH (08:13)
[2018-01-09] MEDS: Z GUARD REMEDY 2 OZ OINT TP SCH (08:13)
[2018-01-09] MEDS: HYDROGEL DRESSING 90 GM TUBE TP SCH (08:13)
[2018-01-09] MEDS: ZINC SULFATE 220 MG CAPSULE PO SCH (08:47)
[2018-01-09] MEDS: ACETAMINOPHEN W/ CODEINE#3 1 EA TABLET PO SCH (08:47)
[2018-01-09] MEDS: PANTOPRAZOLE 40 MG TABLET.DR PO SCH (08:47)
[2018-01-09] MEDS: GABAPENTIN 300 MG CAPSULE PO SCH (08:47)
[2018-01-09] MEDS: FUROSEMIDE 40 MG/4 ML VIAL IV SCH (08:47)
[2018-01-09] MEDS: SODIUM CHLORIDE 1000 MG TABLET.SOL PO SCH (08:47)
[2018-01-09] MEDS: ASCORBIC ACID 500 MG TABLET PO SCH (08:47)
[2018-01-09] MEDS: ASPIRIN 81 MG TAB.CHEW PO SCH (08:47)
[2018-01-09 08:48] VITALS: BP 125/65
[2018-01-09] MEDS: BENAZEPRIL HCL 20 MG TABLET PO SCH (08:48)
[2018-01-09] MEDS: AMLODIPINE BESYLATE 10 MG TABLET PO SCH (08:48)
[2018-01-09] MEDS: MULTIVIT, IRON, MIN NO. 8, FA 1 TAB PO SCH (08:49)
[2018-01-09] MEDS ORDERED: FEE PK DOSING 1 MIN EA MC ONE (09:57)
--- NOTE | 2018-01-09 11:05 | NUR ---
REVIEW COORDINATOR NOTES DISCHARGE ORDER RECEIVED AND CARRIED OUT. PATIENT IS LEAVING IN A STABLE CONDITION. FAMILY REFUSED SENDING THE PATIENT BACK TO [facility] AND PREFERRED TO TAKE PATIENT BACK HOME. ALL DISCHARGE INSTRUCTIONS EXPLAINED TO PATIENT AND PATIENT'S DAUGHTER, NEW PRESCRIPTION GAVE TO PATIENT. PATIENT AND DAUGHTER VERBALIZED UNDERSTANDING. PICTURES WERE TAKEN ON 01/08 AT 1300 AND PLACED IN THE CHART. ALL PERSONAL BELONGING WITH PATIENT AT TIME OF DISCHARGE. PATIENT SIGNED BOTH DISCHARGE PAPERS AND BELONGING FORM; BOTH FORMS PLACED IN THE CHART. PICC LINE REMOVED PER DR TOWNSEND ORDER. ID BAND REMOVED. PATIENT PROVIDED WITH PANTS AND SHIRTS FOR DISCHARGE. A SUPERVISOR GROUNDS ESCORTED PATIENT DOWN TO MAIN LOBBY VIA A WHEELCHAIR. DAUGHTER DROVE PATIENT HOME VIA A PRIVATE CAR.
[2018-01-09] MEDS ORDERED: VANCOMYCIN 1 GM in IV D5W 250 ML IV SCH (14:00)
== END 2018-01-09 11:00 | disposition home or self-care (01) | DRG 166 ==
LOC: ER 11:25 → TELE 14:22 → MED 01-05 08:07 → MEDSG2 01-05 20:34
PROVIDERS: ADMIT Nurse Practitioner Acute Care; ATTEND Nurse Practitioner Acute Care
PROC: 0W9B3ZZ Drainage of Left Pleural Cavity, Percutaneous Approach (ICD-10-PCS; principal; 2018-01-06)
PROC: 0JBQ0ZZ Excision of Right Foot Subcutaneous Tissue and Fascia, Open Approach (ICD-10-PCS; 2018-01-07)
DX: J15.6 Pneumonia due to other Gram-negative bacteria (principal); E43 Unspecified severe protein-calorie malnutrition; J96.01 Acute respiratory failure with hypoxia; I50.31 Acute diastolic (congestive) heart failure; J90 Pleural effusion, not elsewhere classified; M86.8X7 Other osteomyelitis, ankle and foot; E88.09 Other disorders of plasma-protein metabolism, not elsewhere classified; L97.518 Non-pressure chronic ulcer of other part of right foot with other specified severity; E11.42 Type 2 diabetes mellitus with diabetic polyneuropathy; E11.51 Type 2 diabetes mellitus with diabetic peripheral angiopathy without gangrene; E11.621 Type 2 diabetes mellitus with foot ulcer; J15.9 Unspecified bacterial pneumonia; E11.69 Type 2 diabetes mellitus with other specified complication; D63.8 Anemia in other chronic diseases classified elsewhere; Z89.512 Acquired absence of left leg below knee; Z87.442 Personal history of urinary calculi; Z79.4 Long term (current) use of insulin; I11.0 Hypertensive heart disease with heart failure; E78.5 Hyperlipidemia, unspecified; Z68.26 Body mass index [BMI] 26.0-26.9, adult; R74.8 Abnormal levels of other serum enzymes; M62.50 Muscle wasting and atrophy, not elsewhere classified, unspecified site; J40 Bronchitis, not specified as acute or chronic; K59.00 Constipation, unspecified
CPT/HCPCS: 36415; 71045-TC; 76942-TC; 80048-TC; 80076-TC; 82962-TC; 83605-TC; 83735-TC; 83880; 84100-TC; 84484-TC; 85025-TC; 85652-TC; 85730-TC; 86140-TC; 87040-TC; 87070-TC; 87081-TC; 87400; 88305-TC; 88307-TC; 88312-TC; 89051-TC; 93307-TC; 94799-TC; A4216; A4606; A6248; A6402; J1815; J1885; J1940; J1956; J2405; J2543; J3370; J7050; J7060; Z7610

== ENCOUNTER 2020-08-22 13:45 | Inpatient (IN) | payer MEDICAID ==
[2020-08-22] VITALS (26 sets, daily range): BP systolic 75–148; BP diastolic 45–75
[~2020-08-22] VITALS: Ht 152.4 cm; Wt 61.2 kg
[~2020-08-22 13:45] MED LIST: ACET-868 PO; ACET-907 PO; AMLO-213 PO; ASCO-352 PO; ASPI-1169 PO; ATOR40TA PO; BENA40TA8 PO; BISA10SU11 RC; GABA-534 PO; INSU100I26 SQ; LEVO500T23 PO; MAGN400O6 PO; MULT-213 PO; NA P133E RC; PANT40TA2 PO; SODI1TAB66 PO; ZINC220T4 PO
[2020-08-22] MEDS ORDERED: CYAN-51 PO (14:06)
[2020-08-22] MEDS ORDERED: BLOO-668 IN (14:06)
[2020-08-22] MEDS ORDERED: SIME80TA15 PO (14:06)
[2020-08-22] MEDS ORDERED: RIVA10TA PO (14:06)
[2020-08-22] MEDS ORDERED: DORZ10DR11 RIGHTEYE (14:06)
[2020-08-22] MEDS ORDERED: CALC-1143 PO (14:06)
[2020-08-22] MEDS ORDERED: SENN-175 PO (14:06)
[2020-08-22] MEDS ORDERED: POTA20TA10 PO (14:06)
[2020-08-22] MEDS ORDERED: METF-440 PO (14:06)
[2020-08-22] MEDS ORDERED: BRIM5DRO3 LEFTEYE (14:06)
[2020-08-22] MEDS ORDERED: FERR325T23 PO (14:06)
[2020-08-22] MEDS ORDERED: ACET500C48 PO (14:06)
[2020-08-22] MEDS ORDERED: ONDA4TAB5 PO (14:06)
[2020-08-22] MEDS ORDERED: GLUC1KIT IM (14:06)
[2020-08-22] MEDS ORDERED: ERGO500014 PO (14:06)
[2020-08-22] MEDS ORDERED: FAMO20TA8 PO (14:06)
[2020-08-22] MEDS ORDERED: EPOE1000 SQ (14:06)
[2020-08-22] MEDS ORDERED: AMIN30LI27 PO (14:06)
[2020-08-22] MEDS ORDERED: LOPE2TAB25 PO (14:06)
[2020-08-22] MEDS ORDERED: ACET-868 PO (14:06)
--- NOTE | 2020-08-22 14:15 | NUR ---
called [facility]. spoke to felisa garner for more info. states pt was noted to more lethargic, ate just 1 meal. telephone services sales representative pt was still verbally responsive. aaox2 baseline. per felisa garner. pt was noted w/ blank stare and no longer verbally responsive at around 1130. dr velasquez made aware.
[2020-08-22 14:32] LABS: BASOPHILS # (AUTO) 0.1 /CMM (0.0-0.2); BASOPHILS % (AUTO) 0.1 % (0.0-2.0); EOSINOPHILS % (AUTO) 0.1 % (0.0-6.0); HEMATOCRIT 41 % (33-45); LYMPHOCYTES # (AUTO) 0.5 /CMM (0.8-4.8); LYMPHOCYTES % (AUTO) 1.1 % (20.0-44.0); MEAN CORPUSCULAR HGB CONC 29 g/dl (31.0-36.0); MEAN CORPUSCULAR VOLUME 104 fL (82-100); MONOCYTES # (AUTO) 0.4 /CMM (0.1-1.30); NEUTROPHILS # (AUTO) 42.8 /CMM (1.8-8.9); NEUTROPHILS % (AUTO) 97.7 % (43.0-81.0); PLATELET COUNT (AUTO) 393 /CMM (150-450); RED BLOOD CELL COUNT(AUTO) 3.96 MIL/uL (4.0-5.2)
--- NOTE | 2020-08-22 14:38 | NUR ---
back from ct. unabloe to appreciate bp. made aware
[2020-08-22] MEDS: NOREPINEPHRINE 8 MG in IV NS 0.9% 242 ML IV PRN ×5 (14:45→16:27)
--- NOTE | 2020-08-22 14:48 | NUR ---
levophen 0.1 mcg/kg/min started LFA 20g.
[2020-08-22 14:56] LABS: D-DIMER 0.49 mg/L(FEU (0.17-0.50)
--- NOTE | 2020-08-22 14:58 | NUR ---
2nd 500ml ns bag. RFA18g
--- NOTE | 2020-08-22 14:58 | NUR ---
levophed 0.2 mcg/kg/min bp: 73/40 hr: 64
[2020-08-22] MEDS ORDERED: NOREPINEPHRINE 8 MG in IV NS 0.9% 242 ML IV PRN (15:00)
--- NOTE | 2020-08-22 15:02 | NUR ---
Rocuronium 40mg ivp x 1. bp: 86/56 hr: 68
--- NOTE | 2020-08-22 15:03 | NUR ---
etomidate 20mg ivp x 1 rfa 18g
--- NOTE | 2020-08-22 15:04 | NUR ---
intubated 22@ lip, ET 7.0 vent setting: AC16, VT:400, O250%, 0PEEP
--- NOTE | 2020-08-22 15:12 | NUR ---
BP: 117/59. LEVOPHED DECREASED TO 0.1 MCG/KG/MIN Addendum: 08/22/20 at 1538 by JSARMIENTO GRAF CATH INSERTED. FR16. GASTRIC OUTPUT NOTED AT 375ML
--- NOTE | 2020-08-22 15:12 | NUR ---
NGT @ MARKER 55. BLACK GASTRIC OUTPUT, ON INTERMITENT SUCTIONING.
[2020-08-22 15:16] LABS: CREATINE KINASE, TOTAL 70 U/L (26-192); FERRITIN 94 ng/mL (8-388)
[2020-08-22 15:20] LABS: WHITE BLOOD COUNT (AUTO) 43.8 K/uL (4.3-11.0)
[2020-08-22 15:21] LABS: HEMOGLOBIN 12.1 g/dL (11.5-14.8)
--- NOTE | 2020-08-22 15:21 | NUR ---
CRITICAL WBC 43.8, MD MADE AWARE
[2020-08-22] MEDS ORDERED: PANTOPRAZOLE 40 MG VIAL ONE (15:22)
[2020-08-22 15:25] LABS: C-REACTIVE PROTEIN 8.4 mg/dL (0.0-0.9)
--- NOTE | 2020-08-22 15:27 | NUR ---
BP: 92/50. LEVOPHEN INCREASED BACK TO: 0.2MCG/KG/MIN
[2020-08-22 15:29] LABS: CALCIUM, SERUM 8.3 mg/dL (8.5-10.1); CHLORIDE 100 mmol/L (98-107); CREATININE 1.5 mg/dL (0.6-1.3); GLUCOSE 112 mg/dL (74-106); POTASSIUM 5.9 mmol/L (3.5-5.1); SODIUM SERUM 129 mmol/L (136-145); UREA NITROGEN, BLOOD 41 mg/dL (7-18)
[2020-08-22] MEDS ORDERED: MEROPENEM 1 G in IV NS 0.9% 100 ML IV ONE (15:30)
[2020-08-22] MEDS ORDERED: VANCOMYCIN 1 GM in IV D5W 250 ML IV ONE (15:30)
--- NOTE | 2020-08-22 15:30 | NUR ---
PROTONIX 80MG IVP X 1 GIVEN PER MD ORDERED VERBALLY
[2020-08-22 15:34] LABS: BILIRUBIN,URINE MODERATE (NEGATIVE); BLOOD, URINE LARGE Ery/uL (NEGATIVE); COLOR,URINE YELLOW (YELLOW); LEUKOCYTE ESTERASE ,URINE MODERATE (NEGATIVE); NITRITE, URINE NEGATIVE (NEGATIVE); PH,URINE 7.5 (5.0-8.0); PROTEIN,URINE 30 mg/dl (NEGATIVE); UGLUCOSE NEGATIVE (NEGATIVE)
[2020-08-22 15:35] LABS: ALKALINE PHOSPHATASE 123 U/L (46-116); BILIRUBIN,TOTAL 0.5 mg/dL (0.2-1.0); CARBON DIOXIDE 4 mmol/L (21-32)
[2020-08-22 15:36] LABS: ALANINE AMINOTRANSFERASE 29 U/L (12-78); ALBUMIN 2.6 g/dL (3.4-5.0); ASPARTATE AMINOTRANSFERASE 31 U/L (15-37); B-TYPE NATRIURETIC PEPTIDE 2717 PG/ML (0-125)
[2020-08-22 15:43] LABS: BAND % (MANUAL) 8 % (0.0-5.0); LYMPHOCYTES % (MANUAL) 2 % (16-48); MONOCYTES % (MANUAL) 4 % (0-11.0); NEUTROPHILS % (MANUAL) 86 (42-76)
[2020-08-22 15:51] LABS: BACTERIA,URINE 2+ /HPF (None Seen); HYALINE CASTS, URINE Few /LPF (None Seen); SQUAMOUS EPITHELIAL CELL,UR 0-2 /HPF (None Seen); WBC,URINE 21-50 /HPF (0-3)
[2020-08-22] MEDS ORDERED: SODIUM BICARBONATE SYR 50 MEQ/50 ML DISP.SYRIN ONE (15:52)
[2020-08-22] MEDS ORDERED: INSULIN REGULAR, HUMAN 100 UNIT/ML 10 ML VIAL IV ONE (16:00)
[2020-08-22] MEDS ORDERED: SODIUM POLYSTYRENE SULFONATE 15 G/60 ML BOTTLE RC ONE (16:00)
[2020-08-22] MEDS ORDERED: SODIUM BICARBONATE SYR 50 MEQ/50 ML DISP.SYRIN IV ONE (16:00)
[2020-08-22] MEDS ORDERED: DEXTROSE 50%-WATER 50 ML DISP.SYRIN IV ONE (16:00)
[2020-08-22] MEDS ORDERED: PANTOPRAZOLE 80 MG in IV NS 0.9% 500 ML IV ONE (16:00)
[2020-08-22] MEDS ORDERED: PANTOPRAZOLE 40 MG VIAL IV ONE ×2 (16:00→19:00)
[2020-08-22] MEDS ORDERED: IV NS 0.9% 500 ML BAG IV ONE ×3 (16:00→17:00)
--- NOTE | 2020-08-22 16:07 | NUR ---
GOT BED 261
[2020-08-22] MEDS ORDERED: DEXTROSE 50%-WATER 50 ML DISP.SYRIN ONE (16:08)
[2020-08-22] MEDS ORDERED: SODIUM POLYSTYRENE SULFONATE 15 G/60 ML BOTTLE ONE (16:08)
[2020-08-22] MEDS ORDERED: INSULIN REGULAR, HUMAN 100 UNIT/ML 10 ML VIAL ONE (16:08)
[2020-08-22 16:21] LABS: ABG BASE EXCESS -25.1 mmol/L; ABG OXYGEN SATURATION 98.7 % (92.0-98.5); ABG PCO2 33.3 mmHg (35.0-45.0); ABG PH 6.915 (7.350-7.450); ABG PO2 245.7 mmHg (75.0-100.0); AaDO2 73.3 mmHg; COHb 0.3 % (0.5-1.5); MetHb 0.4 % (0.0-1.5); PEEP,BG 0 cm H2O; SITE, ABG Right Brachial; VT, ABG 400 mL
--- NOTE | 2020-08-22 16:24 | NUR ---
CALLED DR. HERMAN [phone]
--- NOTE | 2020-08-22 16:48 | NUR ---
REPORT GIVEN TO JUAN TOBIAS FOR ADAM
--- NOTE | 2020-08-22 17:35 | NUR ---
PT TRANSPORTED TO UNIT ON [facility] WITH EMT, RT AND RN AT BEDSIDE W/ ACLS PROTOCOL. NAD DISTRESS NOTED DURING TRANSPORT.
--- NOTE | 2020-08-22 17:48 | NUR ---
RT NOTE Pt brought into ER unresponsive by rescue ambulance. Pt intubated via 7.0 ETT @ 22cm lip line. Positive color change and bilateral breath sounds noted. Pt placed on AC 16, 400, 50%, +0 per MD order. ABG done and given to Dr. Whitney. Vent settings titrated to rate of 20.
[2020-08-22] MEDS ORDERED: ETOMIDATE 2 MG/ML VIAL IV ONE (17:51)
[2020-08-22] MEDS ORDERED: ROCURONIUM BROMIDE 50 MG/5 ML IV ONE (17:52)
[2020-08-22] MEDS ORDERED: PIPERACILLIN /TAZOBACTAM 3.375 G in IV D5W 50 ML IV SCH (18:00)
[2020-08-22] MEDS ORDERED: NOREPINEPHRINE 8 MG in IV NS 0.9% 250 ML IV PRN (18:00)
[2020-08-22] MEDS ORDERED: ONDANSETRON HCL/PF 4 MG/2 ML VIAL IVP PRN (18:00)
[2020-08-22] MEDS ORDERED: ACETAMINOPHEN 650 MG/SUPP.RECT RC PRN (18:00)
--- NOTE | 2020-08-22 18:05 | NUR ---
RT NOTE Pt transferred to ICU 261. Vent is plugged into red outlet. [facility] at [facility]. Alarms are set and audible. No respiratory distress noted @ this time. Addendum: 08/22/20 at 1807 by SYDNEE HERMAN RT Amended: Links added.
--- NOTE | 2020-08-22 18:16 | NUR ---
Chel baltazar in [facility] - 08/22/20 at 1816 by GEOVANNA REPORT GIVEN TO JUAN WOLF FOR AADM
[2020-08-22 18:20] LABS: BILIRUBIN,DIRECT 0.2 mg/dL (0.0-0.2)
[2020-08-22] MEDS ORDERED: PANTOPRAZOLE 80 MG in IV NS 0.9% 100 ML IV ONE (18:30)
[2020-08-22] MEDS ORDERED: IV NS 0.9% 1,000 ML IV PRN (18:30)
[2020-08-22] MEDS ORDERED: PANTOPRAZOLE 80 MG in IV NS 0.9% 500 ML IV PRN ×2 (18:30→20:00)
[2020-08-22] MEDS: IPRATROPIUM BROMIDE 14 GM INHALER (or 12.9 GM) IH SCH ×2 (18:30→22:30)
[2020-08-22] MEDS ORDERED: DEXTROSE 50%-WATER 50 ML DISP.SYRIN IV PRN (18:30)
[2020-08-22] MEDS: ALBUTEROL FS 2.5 MG/0.5 ML VIAL.NEB IH SCH ×2 (18:30→22:30)
[2020-08-22] MEDS: NOREPINEPHRINE 8 MG in IV NS 0.9% 250 ML IV PRN ×2 (19:00→23:50)
--- NOTE | 2020-08-22 19:00 | NUR ---
ICU Patient intubated 04/18, AC 20, TV 400, FiO2 50%, 0 PEEP. Obtunded, no gag or cough reflex. SR 90s. Garcia draining cloudy yellow urine. R NGT @LIS - green gastric drainage. orders to send for OB (endorsed). small brown BM. small amount of bright red blood visualized coming out of rectum (Dann FUNERAL SALES MANAGER aware). Wound pictures taken. Mepliex and zguard applied, offload. NPO. L FA 18G + L FA 20G, patent and intact. no central line placement available for today per nursing sup. levo & NS @100mL/hr. potassium 5.9, 1amp bicarb, 1 amp d50, 5U insulin & 30gm Kayexlate given. ABG @0000, ph 6.9 - per pharm, dann GONZALEZ stated Dr. Pradhan will place order (contacted by ER ). Sputum cx endorsed. per ER COVID swab done. temp 92F rectally, bear hugger on, ID FUNERAL SALES MANAGER aware
[2020-08-22 21:12] LABS: BASOPHILS # (AUTO) 0.2 /CMM (0.0-0.2); BASOPHILS % (AUTO) 0.5 % (0.0-2.0); EOSINOPHILS % (AUTO) 0.1 % (0.0-6.0); HEMATOCRIT 39 % (33-45); HEMOGLOBIN 11.4 g/dL (11.5-14.8); LYMPHOCYTES # (AUTO) 0.4 /CMM (0.8-4.8); MEAN CORPUSCULAR HGB CONC 30 g/dl (31.0-36.0); MEAN CORPUSCULAR VOLUME 101 fL (82-100); MONOCYTES # (AUTO) 0.8 /CMM (0.1-1.30); NEUTROPHILS # (AUTO) 40.5 /CMM (1.8-8.9); NEUTROPHILS % (AUTO) 96.4 % (43.0-81.0); PLATELET COUNT (AUTO) 377 /CMM (150-450); RED BLOOD CELL COUNT(AUTO) 3.81 MIL/uL (4.0-5.2)
[2020-08-22 21:27] LABS: ALANINE AMINOTRANSFERASE 26 U/L (12-78); ALBUMIN 2.1 g/dL (3.4-5.0); ALKALINE PHOSPHATASE 117 U/L (46-116); ASPARTATE AMINOTRANSFERASE 32 U/L (15-37); BILIRUBIN,TOTAL 0.5 mg/dL (0.2-1.0); CALCIUM, SERUM 7.1 mg/dL (8.5-10.1); CHLORIDE 105 mmol/L (98-107); CREATININE 1.8 mg/dL (0.6-1.3); GLUCOSE 310 mg/dL (74-106); MAGNESIUM 1.8 mg/dL (1.8-2.4); PHOSPHORUS 7.4 mg/dL (2.5-4.9); POTASSIUM 4.3 mmol/L (3.5-5.1); SODIUM SERUM 134 mmol/L (136-145); TOTAL PROTEIN, SERUM 5.8 g/dL (6.4-8.2); UREA NITROGEN, BLOOD 40 mg/dL (7-18)
[2020-08-22 21:29] LABS: CARBON DIOXIDE 10 mmol/L (21-32)
[2020-08-22 21:32] LABS: BAND % (MANUAL) 7 % (0.0-5.0); LYMPHOCYTES % (MANUAL) 3 % (16-48); METAMYELOCYTES % 1 % (0-0); MONOCYTES % (MANUAL) 2 % (0-11.0); NEUTROPHILS % (MANUAL) 87 (42-76)
[2020-08-22] MEDS: Sodium Bicarbonate 100 MEQ in IV 1/2NS 1000 ML 1,000 ML IV PRN (21:51)
--- NOTE | 2020-08-22 22:04 | NUR ---
CALLED NEXT OF KIN (DAUGHTER DHEERAJ SAMS) TO GET CONSENT FOR PICC LINE. LEFT MESSAGE WILL AWAIT CALL BACK.
[2020-08-22] MEDS: MEROPENEM 500 MG in IV NS 0.9% 50 ML IV SCH (22:18)
[2020-08-23] VITALS (94 sets, daily range): BP systolic 54–130; BP diastolic 32–79
[2020-08-23 00:05] LABS: HEMOGLOBIN 11.6 g/dL (11.5-14.8)
[2020-08-23] MEDS: BLOOD SUGAR DIAGNOSTIC 1 EACH STRIP IN SCH ×4 (00:25→17:49)
[2020-08-23] MEDS: INSULIN REGULAR, HUMAN 100 UNIT/ML 3 ML VIAL SQ PRN ×2 (01:08→18:52)
[2020-08-23] MEDS: IPRATROPIUM BROMIDE 14 GM INHALER (or 12.9 GM) IH SCH ×7 (02:30→23:35)
[2020-08-23] MEDS: ALBUTEROL FS 2.5 MG/0.5 ML VIAL.NEB IH SCH ×3 (02:30→10:26)
[2020-08-23 04:41] LABS: BASOPHILS # (AUTO) 0.3 /CMM (0.0-0.2); BASOPHILS % (AUTO) 0.4 % (0.0-2.0); EOSINOPHILS % (AUTO) 0.5 % (0.0-6.0); HEMATOCRIT 40 % (33-45); HEMOGLOBIN 11.5 g/dL (11.5-14.8); LYMPHOCYTES # (AUTO) 0.7 /CMM (0.8-4.8); MEAN CORPUSCULAR HGB CONC 29 g/dl (31.0-36.0); MEAN CORPUSCULAR VOLUME 106 fL (82-100); MONOCYTES % (AUTO) 4.6 % (2.0-12.0); NEUTROPHILS % (AUTO) 93.5 % (43.0-81.0); PLATELET COUNT (AUTO) 335 /CMM (150-450); RED BLOOD CELL COUNT(AUTO) 3.82 MIL/uL (4.0-5.2)
[2020-08-23 04:58] LABS: CHOLESTEROL 52 mg/dL (<200); HDL CHOLESTEROL 39 mg/dL (40-60); LDL 7 mg/dL (0-99); THYROID STIMULATING HORMONE 2.156 uIU/mL (0.358-3.74); TRIGLYCERIDES 76 mg/dL (30-150)
[2020-08-23 05:01] LABS: WHITE BLOOD COUNT (AUTO) 65.3 K/uL (4.3-11.0)
[2020-08-23] MEDS: NOREPINEPHRINE 8 MG in IV NS 0.9% 250 ML IV PRN (05:04)
[2020-08-23 05:05] LABS: ALANINE AMINOTRANSFERASE 20 U/L (12-78); ALKALINE PHOSPHATASE 94 U/L (46-116); ASPARTATE AMINOTRANSFERASE 29 U/L (15-37); BILIRUBIN,TOTAL 0.3 mg/dL (0.2-1.0); CHLORIDE 116 mmol/L (98-107); CREATININE 1.5 mg/dL (0.6-1.3); GLUCOSE 123 mg/dL (74-106); PHOSPHORUS 4.1 mg/dL (2.5-4.9); SODIUM SERUM 142 mmol/L (136-145); TOTAL PROTEIN, SERUM 4.2 g/dL (6.4-8.2); UREA NITROGEN, BLOOD 30 mg/dL (7-18)
[2020-08-23 05:08] LABS: OCCULT BLOOD STOOL POSITIVE (NEGATIVE)
[2020-08-23 05:23] LABS: LYMPHOCYTES % (MANUAL) 3 % (16-48); MONOCYTES % (MANUAL) 10 % (0-11.0); NEUTROPHILS % (MANUAL) 87 (42-76)
[2020-08-23 05:26] LABS: MAGNESIUM 1.2 mg/dL (1.8-2.4)
[2020-08-23 05:28] LABS: ALBUMIN 1.4 g/dL (3.4-5.0); CALCIUM, SERUM 4.8 mg/dL (8.5-10.1); CARBON DIOXIDE 9 mmol/L (21-32); POTASSIUM 2.7 mmol/L (3.5-5.1)
[2020-08-23] MEDS ORDERED: Calcium Gluconate 0.465 MEQ/ML VIAL IV ONE (06:30)
[2020-08-23] MEDS: POTASSIUM CL. PREMIX PERIPHER. 50 ML IV SCH ×8 (06:34→16:05)
[2020-08-23 06:39] LABS: ABG BASE EXCESS -15.2 mmol/L; ABG OXYGEN SATURATION 98.8 % (92.0-98.5); ABG PCO2 26.7 mmHg (35.0-45.0); ABG PH 7.227 (7.350-7.450); ABG PO2 145.4 mmHg (75.0-100.0); AaDO2 181.1 mmHg; MetHb 0.8 % (0.0-1.5); SITE, ABG Right Brachial; VT, ABG 400 mL
--- NOTE | 2020-08-23 06:45 | NUR ---
Patient HR elevated up to 150. Patient is going in and out of AFIB. Will endorse to AM nurse.
[2020-08-23 08:20] LABS: HEMOGLOBIN 11.9 g/dL (11.5-14.8)
[2020-08-23] MEDS: methylPREDNISolone SOD SUCC 125 MG/2ML VIAL IV SCH ×2 (08:56→16:15)
[2020-08-23] MEDS: MEROPENEM 500 MG in IV NS 0.9% 50 ML IV SCH ×2 (08:57→21:01)
[2020-08-23] MEDS: PHENYLEPHRINE 50 MG in IV NS 0.9% 245 ML IV PRN ×3 (09:10→22:01)
--- NOTE | 2020-08-23 10:27 | NUR ---
et-tube pulled back to 19cm per DR Car
[2020-08-23] MEDS ORDERED: HYDROCORTISONE SOD SUCCINATE 100 MG/2 ML VIAL IV SCH (10:30)
[2020-08-23] MEDS: Magnesium 1GM/D5W 100ML PREMIX 100 ML IV SCH ×2 (10:52→11:59)
--- NOTE | 2020-08-23 11:08 | NUR ---
DR RODRIGUEZ AND DR WHITEHEAD BOTH AWARE OF PATIENT'S BP AND UNCONTROLLED AFIB. TWYLA IS RUNNING. WILL CONTINUE TO CLOSELY MONITOR BP AND TITRATE ACCORDINGLY.
--- NOTE | 2020-08-23 11:09 | NUR ---
FAMILY OF PATIENT UNABLE TO BE REACHED. DR WHITEHEAD SIGNED EMERGENCY CONSENT FOR PICC LINE INSERTION. CONSENT PLACED IN CHART.
--- NOTE | 2020-08-23 11:16 | NUR ---
FAMILY OF PATIENT UNABLE TO BE REACHED. DR WHITEHEAD SIGNED EMERGENCY CONSENT FOR PICC LINE INSERTION. CONSENT PLACED IN CHART.
--- NOTE | 2020-08-23 11:16 | NUR ---
DR RODRIGUEZ AND DR WHITEHEAD BOTH AWARE OF PATIENT'S BP AND UNCONTROLLED AFIB. TWYLA IS RUNNING. WILL CONTINUE TO CLOSELY MONITOR BP AND TITRATE ACCORDINGLY.
[2020-08-23] MEDS ORDERED: PANTOPRAZOLE 40 MG VIAL IV SCH (11:30)
[2020-08-23] MEDS: ALBUTEROL SULFATE 8 GM HFA.AER.AD IH SCH ×4 (11:30→23:33)
[2020-08-23] MEDS ORDERED: IV NS 0.9% 500 ML IV STA (11:32)
[2020-08-23 11:51] LABS: ABG BASE EXCESS -15.7 mmol/L; ABG OXYGEN SATURATION 95.8 % (92.0-98.5); ABG PCO2 26.3 mmHg (35.0-45.0); ABG PH 7.219 (7.350-7.450); ABG PO2 84.3 mmHg (75.0-100.0); AaDO2 242.6 mmHg; COHb 0.3 % (0.5-1.5); MetHb 0.7 % (0.0-1.5); O2Hb 94.8 % (94.0-97.0); PEEP,BG 0 cm H2O; SITE, ABG Right Brachial; VT, ABG 400 mL
--- NOTE | 2020-08-23 11:53 | NUR ---
PER DR RODRIGUEZ, WAIT TO SEE THE RESULTS OF 500CC NS BOLUS. IF BP DOESNT GET BETTER, START HER ON ANOTHER PRESSOR.
[2020-08-23] MEDS: FAMOTIDINE/PF INJ 20 MG/2 ML VIAL IV SCH ×2 (11:58→21:02)
[2020-08-23] MEDS: METRONIDAZOLE 500MG/ NS 100ML 500 MG in PREMIX 1 EA IV SCH ×2 (11:58→21:02)
--- NOTE | 2020-08-23 13:19 | NUR ---
PATIENT IS NO LONGER ON LEVO D/T TACHYCARDIA, LEVO WAS TAPERED DOWN TWYLA WAS STARTED.
--- NOTE | 2020-08-23 13:20 | NUR ---
AWAITING VASOPRESSIN ARRIVAL FROM PHARMACY
[2020-08-23] MEDS ORDERED: VASOPRESSIN INJ 20 UNIT in IV NS 0.9% 39 ML IV PRN (13:30)
--- NOTE | 2020-08-23 14:04 | NUR ---
DR RCUZ INSERTING CENTRAL LINE TO INITIATE VASOPRESSIN
[2020-08-23] MEDS ORDERED: IV NS 0.9% 1,000 ML IV ONE (15:00)
[2020-08-23] MEDS ORDERED: VASOPRESSIN INJ 40 UNIT in IV NS 0.9% 38 ML IV PRN (15:00)
[2020-08-23 15:21] LABS: ABG BASE EXCESS -19.6 mmol/L; ABG OXYGEN SATURATION 89.8 % (92.0-98.5); ABG PCO2 24.4 mmHg (35.0-45.0); ABG PH 7.129 (7.350-7.450); COHb 0.3 % (0.5-1.5); MetHb 0.6 % (0.0-1.5); PEEP,BG 0 cm H2O; SITE, ABG A-Line; VT, ABG 400 mL
[2020-08-23 15:56] LABS: ALANINE AMINOTRANSFERASE 19 U/L (12-78); ALBUMIN 1.5 g/dL (3.4-5.0); ALKALINE PHOSPHATASE 85 U/L (46-116); ASPARTATE AMINOTRANSFERASE 32 U/L (15-37); BILIRUBIN,TOTAL 0.3 mg/dL (0.2-1.0); CALCIUM, SERUM 6.2 mg/dL (8.5-10.1); CARBON DIOXIDE 12 mmol/L (21-32); CHLORIDE 113 mmol/L (98-107); CREATININE 1.4 mg/dL (0.6-1.3); GLUCOSE 214 mg/dL (74-106); POTASSIUM 5.7 mmol/L (3.5-5.1); SODIUM SERUM 138 mmol/L (136-145); TOTAL PROTEIN, SERUM 4.3 g/dL (6.4-8.2); UREA NITROGEN, BLOOD 38 mg/dL (7-18)
--- NOTE | 2020-08-23 17:08 | NUR ---
GRANDSON OF PATIENT CALLED FOR UPDATE. PER GRANDSON, NAZ SAMS IS NOT AROUND AND DOESN'T HAVE A WORKING PHONE AND LONDON SAMS SHOULD BE THE DECISION MAKER. CONTACTED SS MULTIPLE TIMES BUT NO RESPONSE. WILL ENDORSE TO ONCOMING SHIFT TO F/U WITH FAMILY.
--- NOTE | 2020-08-23 18:59 | NUR ---
RN CLOSING NOTE: PATIENT REMAINS IN ROOM, ON PRESSORS AND BAREHUGGER. CONTROLLED AFIB IN THE 90S NOTED ON THE BEDSIDE MONITOR. SAFETY MEASURES IMPLEMENTED, BED IN LOWEST POSITION, LOCKED, SIDE RAILS UP, CALL LIGHT WITHIN REACH. WILL ENDORSE TO ONCOMING SHIFT RN FOR CONTINUITY OF CARE.
--- NOTE | 2020-08-23 19:00 | NUR ---
Received patient in no acute distress in bed. patient is obtunded and does not respond to painful stimuli. Patient is on mechanical vent via ETT 04/18 with vent setting at ac 20, TV 450, FIO2 80, PEEP 0. Patient is tolerating vent setting well. Patient has right IJ TLC PICC line that is clean dry intact and patent with Delio @ 3, Vasopressin at shock dose 0.04, 2 amp Bicarb in 1/2 ns at 100ml/hr. Patient has left ng tube to low intermittent suction with brown/black bile in collection chamber. Patient has freedman catheter that is clean dry intact and [id number] with yellow urine draining. bed in low lock position with rials up x 2. call light within reach and all safety measures ensured and carried out. will continue to monitor.
[2020-08-23] MEDS: Sodium Bicarbonate 100 MEQ in IV 1/2NS 1000 ML 1,000 ML IV PRN (21:12)
[2020-08-24] VITALS (88 sets, daily range): BP systolic 69–124; BP diastolic 45–76
[2020-08-24] MEDS: BLOOD SUGAR DIAGNOSTIC 1 EACH STRIP IN SCH ×5 (00:51→23:41)
[2020-08-24] MEDS: IPRATROPIUM BROMIDE 14 GM INHALER (or 12.9 GM) IH SCH ×6 (04:03→23:51)
[2020-08-24] MEDS: ALBUTEROL SULFATE 8 GM HFA.AER.AD IH SCH ×6 (04:04→23:51)
[2020-08-24] MEDS: METRONIDAZOLE 500MG/ NS 100ML 500 MG in PREMIX 1 EA IV SCH ×3 (04:14→21:30)
[2020-08-24] MEDS ORDERED: PHENYLEPHRINE 10 MG/ML VIAL ONE (04:41)
[2020-08-24] MEDS: PHENYLEPHRINE 50 MG in IV NS 0.9% 245 ML IV PRN ×3 (04:47→18:18)
[2020-08-24 05:25] LABS: CALCIUM, SERUM 6.3 mg/dL (8.5-10.1); POTASSIUM 3.5 mmol/L (3.5-5.1)
[2020-08-24] MEDS: INSULIN REGULAR, HUMAN 100 UNIT/ML 3 ML VIAL SQ PRN ×3 (05:40→23:51)
--- NOTE | 2020-08-24 05:52 | NUR ---
received phone call from Lesa from [facility] and was told that the radiologist recommended Ct of the chest due to chest x ray results of: New left base opacity otherwise no interval change; subtle bilateral nodular densities. Will endorse to AM JUAN.
[2020-08-24] MEDS ORDERED: VANCOMYCIN 500 MG in IV D5W 100 ML IV SCH (06:00)
--- NOTE | 2020-08-24 06:49 | NUR ---
Patient remains in no acute distress in bed. patient did not have any significant change in condition during shift. Patient tolerated vent setting well. All needs met, all orders carried out. will endorse care to am RN for continuity of care.
--- NOTE | 2020-08-24 07:45 | NUR ---
ICU/RN PT IS INTUBATED ON THE VENT AC MODE ,FIO2-70%,SAT O2-100%.NOT SEDATED ,OBTUNDED,RESPONSIVE ON DEEP STIMULATION ONLY. ON NEOSYNEPHRINE DRIP AND BICARB DRIP ORDERED.RIGHT IJ TLC.CVP LINE-3. RIGHT FEMORAL ARTERIAL LINE .PT IS AFEBRILE.NO PAIN REPORTED AT THIS TIME. NG TUBE CONNECTED TO LOW INTERMEDIATE SUCTION WITH MINIMAL AMOUNT OF GREEN COLOR GASTRIC FLUID.F/C DRAINING WITH YELLOW URINE.REPOSITION FOR COMFORT.
[2020-08-24] MEDS: MEROPENEM 500 MG in IV NS 0.9% 50 ML IV SCH (08:02)
[2020-08-24] MEDS: methylPREDNISolone SOD SUCC 125 MG/2ML VIAL IV SCH (08:07)
[2020-08-24] MEDS: FAMOTIDINE/PF INJ 20 MG/2 ML VIAL IV SCH ×2 (08:07→21:29)
[2020-08-24 08:22] LABS: BASOPHILS % (AUTO) 0.1 % (0.0-2.0); HEMATOCRIT 31 % (33-45); LYMPHOCYTES # (AUTO) 0.2 /CMM (0.8-4.8); LYMPHOCYTES % (AUTO) 0.5 % (20.0-44.0); MEAN CORPUSCULAR HGB CONC 32 g/dl (31.0-36.0); MEAN CORPUSCULAR VOLUME 96 fL (82-100); MONOCYTES # (AUTO) 0.4 /CMM (0.1-1.30); MONOCYTES % (AUTO) 1.1 % (2.0-12.0); NEUTROPHILS % (AUTO) 98.3 % (43.0-81.0); PLATELET COUNT (AUTO) 208 /CMM (150-450); RED BLOOD CELL COUNT(AUTO) 3.23 MIL/uL (4.0-5.2)
[2020-08-24 08:27] LABS: WHITE BLOOD COUNT (AUTO) 34.6 K/uL (4.3-11.0)
[2020-08-24 08:55] LABS: ABG OXYGEN SATURATION 99.3 % (92.0-98.5); ABG PCO2 15.6 mmHg (35.0-45.0); ABG PO2 217.4 mmHg (75.0-100.0); AaDO2 264.9 mmHg; COHb 0.5 % (0.5-1.5); MetHb 0.6 % (0.0-1.5); O2Hb 98.2 % (94.0-97.0); SITE, ABG A-Line; VENT MODE, BG AC 20 450 70%
--- NOTE | 2020-08-24 09:00 | NUR ---
ICU/RN DUE MEDS ARE GIVEN ORDERED.LABS REVIEW.MD NOTIFIED.
[2020-08-24] MEDS: Z GUARD REMEDY 2 OZ OINT TP SCH ×2 (09:19→21:29)
[2020-08-24] MEDS: Sodium Bicarbonate 100 MEQ in IV 1/2NS 1000 ML 1,000 ML IV PRN ×2 (09:20→16:49)
[2020-08-24] MEDS ORDERED: IV NS 0.9% 500 ML IV ONE (09:30)
--- NOTE | 2020-08-24 10:03 | NUR ---
ICU/RN DR RODRIGUEZ SEEN THE PT.500 ML BOLUS OF NS ORDERED.IV FLUIDS INCREASED TO 150 ML/HR.CONTINUE MONITORING.
[2020-08-24 11:26] LABS: BAND % (MANUAL) 3 % (0.0-5.0); LYMPHOCYTES % (MANUAL) 1 % (16-48); MONOCYTES % (MANUAL) 1 % (0-11.0); NEUTROPHILS % (MANUAL) 95 (42-76)
--- NOTE | 2020-08-24 17:35 | NUR ---
ICU/RN PM CARE PROVIDED.PT HAD MULTIPLY SOFT BROWN STOOL DURING THE DAY, REDNESS AND EXCORIATION ON THE LOWER BACK AND ARTHUR AREA NOTED. PT HAS ELEMA ON BUE.AND MULTIPLY BRUISES AND SKIN TEARS ALL OVER THE BODY.BS-151.DUE MEDS ARE GIVEN ORDERED.SUCTION PROVIDED.REPOSITION FOR COMFORT.
--- NOTE | 2020-08-24 19:33 | NUR ---
RELAY SHOP TESTER OPENING NOTES: Rec'd pt in bed, obtunded intubated 7/22cm at the lip. On mechanical ventilation tolerating settings well. No SOB or resp distress noted. A-fib on tele monitor. Right IJ TLC patent and flushed. Dressing c/d/i. Right femoral A-line in place. On Delio 2.6mcg/kg/min and Bicarb drip at 150ml/hr. CVP line at 4. NGT in place, clamped. Bilateral soft wrist restraints in place. Will remove and check circulation per protocol. Garcia cath in place patent and draining urine via gravity. Safety measures in place. Will continue to monitor.
[2020-08-24] MEDS: MEROPENEM 1 G in IV NS 0.9% 100 ML IV SCH (21:00)
--- NOTE | 2020-08-24 21:09 | NUR ---
YARD ASSOCIATE NOTE: Moved pt via acls protocol from room 261 to 262 due to monitor not working.
[2020-08-25] VITALS (94 sets, daily range): BP systolic 67–148; BP diastolic 36–85
[2020-08-25] MEDS: Sodium Bicarbonate 100 MEQ in IV 1/2NS 1000 ML 1,000 ML IV PRN (00:42)
[2020-08-25] MEDS: PHENYLEPHRINE 50 MG in IV NS 0.9% 245 ML IV PRN (02:36)
[2020-08-25] MEDS: ALBUTEROL SULFATE 8 GM HFA.AER.AD IH SCH ×6 (03:42→20:24)
[2020-08-25] MEDS: IPRATROPIUM BROMIDE 14 GM INHALER (or 12.9 GM) IH SCH ×5 (03:42→20:23)
[2020-08-25] MEDS: METRONIDAZOLE 500MG/ NS 100ML 500 MG in PREMIX 1 EA IV SCH ×3 (05:00→21:32)
[2020-08-25 05:13] LABS: BASOPHILS # (AUTO) 0.1 /CMM (0.0-0.2); BASOPHILS % (AUTO) 0.3 % (0.0-2.0); HEMATOCRIT 30 % (33-45); HEMOGLOBIN 10.1 g/dL (11.5-14.8); LYMPHOCYTES # (AUTO) 0.3 /CMM (0.8-4.8); LYMPHOCYTES % (AUTO) 0.8 % (20.0-44.0); MEAN CORPUSCULAR HGB CONC 33 g/dl (31.0-36.0); MEAN CORPUSCULAR VOLUME 93 fL (82-100); MONOCYTES # (AUTO) 0.4 /CMM (0.1-1.30); MONOCYTES % (AUTO) 1.5 % (2.0-12.0); NEUTROPHILS # (AUTO) 28.9 /CMM (1.8-8.9); NEUTROPHILS % (AUTO) 97.4 % (43.0-81.0); PLATELET COUNT (AUTO) 137 /CMM (150-450); RED BLOOD CELL COUNT(AUTO) 3.26 MIL/uL (4.0-5.2); WHITE BLOOD COUNT (AUTO) 29.7 K/uL (4.3-11.0)
[2020-08-25 05:23] LABS: CALCIUM, SERUM 6.3 mg/dL (8.5-10.1); CREATININE 0.8 mg/dL (0.6-1.3); MAGNESIUM 1.7 mg/dL (1.8-2.4); PHOSPHORUS 2.1 mg/dL (2.5-4.9)
[2020-08-25 05:28] LABS: POTASSIUM 1.8 mmol/L (3.5-5.1)
[2020-08-25] MEDS: BLOOD SUGAR DIAGNOSTIC 1 EACH STRIP IN SCH ×4 (05:58→23:21)
[2020-08-25] MEDS: INSULIN REGULAR, HUMAN 100 UNIT/ML 3 ML VIAL SQ PRN ×4 (05:59→23:24)
[2020-08-25] MEDS ORDERED: VANCOMYCIN 500 MG in IV D5W 100 ML IV SCH (06:00)
[2020-08-25] MEDS: POTASSIUM CL. PREMIX PERIPHER. 50 ML IV SCH ×4 (06:51→10:00)
[2020-08-25 06:52] LABS: ABG BASE EXCESS -4.7 mmol/L; ABG PCO2 21.4 mmHg (35.0-45.0); ABG PH 7.513 (7.350-7.450); ABG PO2 85.9 mmHg (75.0-100.0); AaDO2 246.5 mmHg; COHb 0.1 % (0.5-1.5); MetHb 0.5 % (0.0-1.5); O2Hb 96.4 % (94.0-97.0); PEEP,BG 0 cm H2O; SITE, ABG A-Line; VT, ABG 450 mL
[2020-08-25] MEDS ORDERED: Sodium Bicarbonate 100 MEQ in IV 1/2NS 1000 ML 1,000 ML IV SCH (07:00)
[2020-08-25 07:08] LABS: CREATININE 0.7 mg/dL (0.6-1.3)
[2020-08-25 07:10] LABS: POTASSIUM 1.9 mmol/L (3.5-5.1)
--- NOTE | 2020-08-25 07:12 | NUR ---
DRYWALL SANDER NOTE: Rec'd call from lab w/ critical K at 1.8. 0600: Paged Dr. Hart 0620: Paged Dr. Hart 0630: Rec'd call back from Dr. Hart who gave orders for K 40meq PO and 40meq IV. Dr. Persaud, cardio on the floor who stated "that is not enough double it". MD placed orders for stat ABG, stat BMP and K 40meq PO and 40meq IV. Gave orders to stop bicarb drip. Drip stopped. He also made adjustments to vent settings. Gave verbal orders to recheck ABG in 30 mins, AM RN at bedside as well.
--- NOTE | 2020-08-25 07:17 | NUR ---
SENIOR PROCESS ANALYST CLOSING NOTES: Remains intubated on mech vent tolerating settings well. No SOB or resp distress noted. Right IJ patent and flushed w/ Delio infusing at 2.1mcg/kg/min. Kept clean/dry. All due meds given as ordered. Safety measures in place. Endorsed to AM nurse for ADAM.
[2020-08-25] MEDS: NOREPINEPHRINE 8 MG in IV NS 0.9% 250 ML IV PRN (07:35)
--- NOTE | 2020-08-25 07:40 | NUR ---
ICU/RN RECEIVED PT INTUBATED ON THE VENT AC MODE .SAT O2-100%.NOT SEDATED .RESPONSIVE ON DEEP PAIN STIMULATION .ON NEOSYNEPHRINE DRIP.CVP -7,A-LINE.NG TUBE CLAMPED.F/C DRAINING WITH YELLOW URINE.GENERALIZED EDEMA PRESENT.MULTIPLY BRUISES AND SKIN TEARS NOTED ON BUE.REDNESS ON ARTHUR AREA AND LOVER BACK NOTED.PT HAD MULTIPLY SOFT BROWN BOWEL MOVEMENTS.LABS REVIEW. NOTIFIED NEW ORDERS FOR POTASSIUM AND MAGNESIUM REPLACEMENT RECEIVED. ABG DONE.BICARB DRIP STOP. DR LEDBETTER AT BED SIDE.
--- NOTE | 2020-08-25 08:11 | NUR ---
RT Pt received orally intubated on mechanical ventilation with noted settings. Vent is plugged into red outlet. Albuterol MDI not given due to tachycardia. No SOB or respiratory distress noted. Addendum: 08/25/20 at 1139 by TONY CHUNG RT Amended: Links added.
[2020-08-25] MEDS: MEROPENEM 1 G in IV NS 0.9% 100 ML IV SCH ×2 (08:29→21:00)
[2020-08-25] MEDS: methylPREDNISolone SOD SUCC 125 MG/2ML VIAL IV SCH (08:29)
[2020-08-25] MEDS: Z GUARD REMEDY 2 OZ OINT TP SCH ×2 (08:30→21:01)
[2020-08-25] MEDS: FAMOTIDINE/PF INJ 20 MG/2 ML VIAL IV SCH ×2 (08:30→20:59)
[2020-08-25 08:48] LABS: ABG BASE EXCESS -6.4 mmol/L; ABG OXYGEN SATURATION 95.4 % (92.0-98.5); ABG PCO2 20.9 mmHg (35.0-45.0); ABG PH 7.483 (7.350-7.450); ABG PO2 74.3 mmHg (75.0-100.0); AaDO2 186.9 mmHg; COHb 0.5 % (0.5-1.5); MetHb 0.3 % (0.0-1.5); O2Hb 94.6 % (94.0-97.0); PEEP,BG 0 cm H2O; SITE, ABG A-Line; VT, ABG 450 mL
[2020-08-25] MEDS: POTASSIUM CHLORIDE 20 MEQ POWDER PACKET GT SCH (09:00)
[2020-08-25] MEDS: ACETAMINOPHEN 650 MG/20.3 ML UDC NG PRN ×2 (09:00→15:08)
[2020-08-25] MEDS ORDERED: POTASSIUM CHLORIDE 20 MEQ TAB.PRT.SR PO SCH (09:00)
[2020-08-25] MEDS ORDERED: Magnesium 1 GM/2 ML VIAL IV ONE (10:00)
--- NOTE | 2020-08-25 10:00 | NUR ---
ICU/RN NEOSYNEPHRINE DRIP CHANGED TO LEVOPHED DRIP ORDERED BY DR LEDBETTER.T-101.4.TYLENOL VIA NG TUBE GIVEN. ABG DONE.PT VOMIT 50 ML . NOTIFIED.
[2020-08-25] MEDS: Magnesium 1GM/D5W 100ML PREMIX 100 ML IV SCH ×2 (10:51→12:18)
[2020-08-25] MEDS: POTASSIUM PHOSPHATE MM 7.5 MMOL in IV NS 0.9% 100 ML IV SCH ×2 (11:19→15:09)
[2020-08-25 16:44] LABS: CALCIUM, SERUM 6.2 mg/dL (8.5-10.1); POTASSIUM 4.3 mmol/L (3.5-5.1)
--- NOTE | 2020-08-25 18:00 | NUR ---
ICU/RN PM CARE PROVIDED.WOUND DRESSING DONE ORDERED.SUCTION PROVIDED. T-99.0.ON LEVOPHED DRIP.ALL MEDS ARE GIVEN ORDERED.SUCTION PROVIDED.REPOSITION FOR COMFORT.
--- NOTE | 2020-08-25 19:19 | NUR ---
RETOUCHER PHOTOENGRAVING OPENING NOTES: Rec'd pt in bed, obtunded. Intubated 7/22cm at the lip on mechanical ventilation. Tolerating vent settings well. No SOB or resp distress noted. A-fib on tele monitor. Left NGT intact, patent and clamped as pt is NPO. Right IJ TLC in patent w/ Levo infusing at 0.05mcg/kg/min. Dressing c/d/i. Right femoral A-line. CVP at -4. Garcia catheter in place patent and draining urine via gravity. Safety measures in place. Will continue to monitor.
[2020-08-26] VITALS (57 sets, daily range): BP systolic 80–130; BP diastolic 37–94
[2020-08-26] MEDS: IPRATROPIUM BROMIDE 14 GM INHALER (or 12.9 GM) IH SCH ×6 (00:22→19:30)
[2020-08-26] MEDS: ALBUTEROL SULFATE 8 GM HFA.AER.AD IH SCH ×6 (00:22→19:30)
--- NOTE | 2020-08-26 03:50 | NUR ---
RADIOLOGIST CHIEF OF BREAST IMAGING NOTE: Collected urine and sent to lab.
--- NOTE | 2020-08-26 04:05 | NUR ---
ELECTRONIC FIELD SERVICE ENGINEER NOTE: BP WNL, titrate levo off per protocol. Will continue to monitor.
[2020-08-26 04:20] LABS: BASOPHILS # (AUTO) 0.1 /CMM (0.0-0.2); BASOPHILS % (AUTO) 0.3 % (0.0-2.0); HEMATOCRIT 30 % (33-45); HEMOGLOBIN 9.8 g/dL (11.5-14.8); LYMPHOCYTES # (AUTO) 0.4 /CMM (0.8-4.8); MEAN CORPUSCULAR HGB CONC 33 g/dl (31.0-36.0); MEAN CORPUSCULAR VOLUME 93 fL (82-100); MONOCYTES # (AUTO) 0.4 /CMM (0.1-1.30); MONOCYTES % (AUTO) 1.2 % (2.0-12.0); NEUTROPHILS # (AUTO) 35.9 /CMM (1.8-8.9); NEUTROPHILS % (AUTO) 97.5 % (43.0-81.0); PLATELET COUNT (AUTO) 96 /CMM (150-450); RED BLOOD CELL COUNT(AUTO) 3.19 MIL/uL (4.0-5.2)
[2020-08-26 04:26] LABS: WHITE BLOOD COUNT (AUTO) 36.9 K/uL (4.3-11.0)
[2020-08-26] MEDS: METRONIDAZOLE 500MG/ NS 100ML 500 MG in PREMIX 1 EA IV SCH ×3 (04:30→22:01)
[2020-08-26 04:42] LABS: URINE TOTAL PROTEIN 74.7 mg/dL (0-11.9)
[2020-08-26 04:49] LABS: CALCIUM, SERUM 6.3 mg/dL (8.5-10.1); MAGNESIUM 2.3 mg/dL (1.8-2.4); PHOSPHORUS 2.4 mg/dL (2.5-4.9); POTASSIUM 3.1 mmol/L (3.5-5.1)
[2020-08-26] MEDS: BLOOD SUGAR DIAGNOSTIC 1 EACH STRIP IN SCH ×3 (05:39→18:33)
[2020-08-26] MEDS: INSULIN REGULAR, HUMAN 100 UNIT/ML 3 ML VIAL SQ PRN ×3 (05:40→18:35)
[2020-08-26 05:42] LABS: BAND % (MANUAL) 1 % (0.0-5.0); LYMPHOCYTES % (MANUAL) 2 % (16-48); MONOCYTES % (MANUAL) 1 % (0-11.0); NEUTROPHILS % (MANUAL) 96 (42-76)
[2020-08-26] MEDS: VANCOMYCIN HCL 0.75 GM in IV D5W 250 ML IV SCH (06:13)
--- NOTE | 2020-08-26 07:17 | NUR ---
HEALTH COACH CLOSING NOTES: Pt remains intubated on mechanical ventilation. No SOB or resp distress noted throughout shift. A-fib on tele monitor. Left NGT remains clamped. Right IJ TLC and right femoral a-line intact. Garcia catheter patent an draining urine via gravity. Kept clean/dry. All due meds given as ordered. Safety measures in place. Will endorse to oncoming nurse for ADAM.
--- NOTE | 2020-08-26 08:00 | NUR ---
AM NOTE: PT AWAKE, LETHARGIC, MOVING RIGHT ARM, NOT FOLLOWING COMMANDS. PT INTUBATED ON VENT. CVP AND ART LINE ZEROED PER PROTOCOL. WILL CONTINUE TO MONITOR.
[2020-08-26] MEDS ORDERED: POTASSIUM CL. PREMIX PERIPHER. 50 ML IV SCH (10:00)
[2020-08-26] MEDS: methylPREDNISolone SOD SUCC 125 MG/2ML VIAL IV SCH (10:42)
[2020-08-26] MEDS: POTASSIUM CHLORIDE 20 MEQ POWDER PACKET GT SCH (10:42)
[2020-08-26] MEDS: Z GUARD REMEDY 2 OZ OINT TP SCH ×2 (10:43→22:02)
[2020-08-26] MEDS: FAMOTIDINE/PF INJ 20 MG/2 ML VIAL IV SCH ×2 (10:43→22:01)
[2020-08-26] MEDS: MEROPENEM 1 G in IV NS 0.9% 100 ML IV SCH ×2 (10:43→22:00)
--- NOTE | 2020-08-26 12:00 | NUR ---
PT SELF EXTUBATED AT THIS TIME, PT PLACED ON 2L NASAL CANNULA. DR. FERMIN AT BEDSIDE. PT APPEARS ALERT, UNCOOPERATIVE. PER DR. FERMIN PT APPEARS TO BE BREATHING WELL EXTUBATED, NO NEED FOR ABG ORDER. RIGHT WRIST RESTRAINT APPLIED AT THIS TIME PER MD ORDERS. LEFT ARM APPEARS TO BE FLACCID AT THIS TIME. WILL CONTINUE TO MONITOR.
[2020-08-26] MEDS: IV 1/2NS 1000 ML 1,000 ML IV SCH (13:08)
[2020-08-26] MEDS: POTASSIUM PHOSPHATE MM 7.5 MMOL in IV NS 0.9% 100 ML IV SCH ×2 (13:09→16:50)
--- NOTE | 2020-08-26 13:30 | NUR ---
LEFT ARM RESTRAINT APPLIED PER MD ORDERS. PT APPEARS TO BE MOVING LEFT ARM, ALTHOUGH APPEARS WEAK. WILL CONTINUE TO MONITOR.
--- NOTE | 2020-08-26 19:00 | NUR ---
END OF SHIFT NOTE: PT SELF EXTUBATED TODAY AT 1200, 2L NC APPLIED. PT DID NOT APPEAR TO BE IN RESPIRATORY DISTRESS ON 2L NC. 1 BM THIS SHIFT. ART LINE AND CVP WNL. PT CHECKED ON HOURLY AND PRN BY NURSING STAFF.
[2020-08-27] VITALS (56 sets, daily range): BP systolic 82–141; BP diastolic 31–83
[2020-08-27] MEDS: ALBUTEROL FS 2.5 MG/0.5 ML VIAL.NEB NEB SCH ×8 (00:14→23:34)
[2020-08-27] MEDS: IPRATROPIUM NEB FS 0.5 MG/2.5 ML AMPUL.NEB NEB SCH ×7 (00:14→23:34)
[2020-08-27] MEDS: BLOOD SUGAR DIAGNOSTIC 1 EACH STRIP IN SCH ×4 (00:26→17:43)
[2020-08-27] MEDS: IV 1/2NS 1000 ML 1,000 ML IV SCH (00:27)
[2020-08-27 04:37] LABS: BASOPHILS % (AUTO) 0.2 % (0.0-2.0); HEMATOCRIT 30 % (33-45); HEMOGLOBIN 9.6 g/dL (11.5-14.8); LYMPHOCYTES # (AUTO) 0.1 /CMM (0.8-4.8); LYMPHOCYTES % (AUTO) 0.5 % (20.0-44.0); MEAN CORPUSCULAR HGB CONC 32 g/dl (31.0-36.0); MEAN CORPUSCULAR VOLUME 94 fL (82-100); MONOCYTES # (AUTO) 0.5 /CMM (0.1-1.30); MONOCYTES % (AUTO) 1.8 % (2.0-12.0); NEUTROPHILS # (AUTO) 29.9 /CMM (1.8-8.9); NEUTROPHILS % (AUTO) 97.5 % (43.0-81.0); RED BLOOD CELL COUNT(AUTO) 3.18 MIL/uL (4.0-5.2)
[2020-08-27 04:52] LABS: WHITE BLOOD COUNT (AUTO) 30.6 K/uL (4.3-11.0)
[2020-08-27 04:53] LABS: PLATELET COUNT (AUTO) 69 /CMM (150-450)
[2020-08-27 04:55] LABS: ALANINE AMINOTRANSFERASE 21 U/L (12-78); ALBUMIN 1.6 g/dL (3.4-5.0); ASPARTATE AMINOTRANSFERASE 46 U/L (15-37); CALCIUM, SERUM 6.6 mg/dL (8.5-10.1); CARBON DIOXIDE 21 mmol/L (21-32); CHLORIDE 112 mmol/L (98-107); CREATININE 0.7 mg/dL (0.6-1.3); GLUCOSE 144 mg/dL (74-106); PHOSPHORUS 3.2 mg/dL (2.5-4.9); POTASSIUM 3.2 mmol/L (3.5-5.1); SODIUM SERUM 145 mmol/L (136-145); UREA NITROGEN, BLOOD 20 mg/dL (7-18)
[2020-08-27 05:10] LABS: ALKALINE PHOSPHATASE 167 U/L (46-116); BILIRUBIN,TOTAL 0.7 mg/dL (0.2-1.0); TOTAL PROTEIN, SERUM 4.6 g/dL (6.4-8.2)
[2020-08-27] MEDS: METRONIDAZOLE 500MG/ NS 100ML 500 MG in PREMIX 1 EA IV SCH ×3 (05:24→21:20)
[2020-08-27 05:56] LABS: LYMPHOCYTES % (MANUAL) 1 % (16-48); MONOCYTES % (MANUAL) 1 % (0-11.0); NEUTROPHILS % (MANUAL) 98 (42-76)
[2020-08-27] MEDS: VANCOMYCIN HCL 0.75 GM in IV D5W 250 ML IV SCH (06:24)
--- NOTE | 2020-08-27 07:30 | NUR ---
EQUIPMENT CLEANER NOTES RECEIVED PATIENT IN BED, ALERT X 1, DUTCH SPEAKING, ON 2L O2 NASAL CANULA, NO SOB, NO DISTRESS, AFIB/SR HR 117, NO SIGNS OF PAIN, WITH LEFT NGT CLAMPED, CHECKED FOR PLACEMENT WITH COLLEAGUE DAVID, WITH R IJ TLC LEVO DRIP AT 0.02MCG, NS AT 75 ML/HR , SITE CLEAR. LEFT FEM A-LINE ZEROED, CVP ZEROED. SEE NURSING FLOWSHEET FOR SKIN ISSUES. FOR WOUND CARE CONSULT, NPO FOR NOW. FOR SWALLOW EVAL, GRAF CATH IN PLACE, WITH SMALL AMOUNT OF DARK YELLOW URINE. BILATERAL SOFT WRIST RESTRAINT RELEASED AND CHECKED FOR CIRCULATION THEN Q [address] ME[address] IN PLACE, BED LOW LOCKED, CALL LIGHT WITHIN REACH. WILL CONT TO MONITOR
--- NOTE | 2020-08-27 07:38 | NUR ---
Patient remains in no acute distress in bed. patient did not have any [id number] change in condition during shift. blood pressure support with levo restarted at 0400 due to low blood pressure. patient tolerating o2 via nasal cannula well. all needs met, all orders carried out. will endorse care to am RN for continuity of care.
--- NOTE | 2020-08-27 08:31 | NUR ---
WOUND CARE CONSULT: PT PRESENTS WITH SACRAL INTACT DEEP TISSUE INJURY, WEEPING EDEMA TO UPPER EXTREMITIES, SKIN TEAR TO LEFT ARM, LEFT BELOW KNEE AMPUTATION WITH DRY ESCHAR TO ANTERIOR AREA OF STUMP AND PERIANAL INCONTINENCE ASSOCIATED OPEN SKIN. RECOMMENDATIONS MADE FOR WOUND CARE AND SKIN PROTECTION. DISCUSSED WITH NURSING STAFF. PT NOTED TO HAVE MULTIPLE CO-MORBIDITIES INCLUDING PNEUMONIA, RESPIRATORY FAILURE(PREVIOUSLY INTUBATED), SEPTIC SHOCK, HISTORY OF LEFT BELOW KNEE AMPUTATION. DUE TO MULTIPLE CO-MORBIDITIES FUTURE SKIN BREAKDOWN MAY BE UNAVOIDABLE. PT IS VERY THIN AND BONY. PT IS ON JANAK ISOFLEX LOW AIRLOSS BED. IN AGREEMENT WITH PLAN OF CARE. Addendum: 08/27/20 at 0835 by VENANCIO FITZPATRICK WNDNU Amended: Links added.
--- NOTE | 2020-08-27 08:45 | NUR ---
FISH BAIT PROCESSING SUPERVISOR NOTES VENANCIO FITZPATRICK WOUND CARE NURSE AT BEDSIDE. ASSESSED PATIENT WITH THE FOLLOWING FINDINGS: WOUND CARE CONSULT: PT PRESENTS WITH SACRAL INTACT DEEP TISSUE INJURY, WEEPING EDEMA TO UPPER EXTREMITIES, SKIN TEAR TO LEFT ARM, LEFT BELOW KNEE AMPUTATION WITH DRY ESCHAR TO ANTERIOR AREA OF STUMP AND PERIANAL INCONTINENCE ASSOCIATED OPEN SKIN. RECOMMENDATIONS MADE FOR WOUND CARE AND SKIN PROTECTION. PER HER NO PICTURES TAKEN ON ADMISSION. INCIDENT REPORT GENERATED BY HER.
[2020-08-27] MEDS: FAMOTIDINE/PF INJ 20 MG/2 ML VIAL IV SCH ×2 (09:08→20:59)
[2020-08-27] MEDS: POTASSIUM CHLORIDE 20 MEQ POWDER PACKET GT SCH (09:08)
[2020-08-27] MEDS: MEROPENEM 1 G in IV NS 0.9% 100 ML IV SCH ×2 (09:09→20:46)
[2020-08-27] MEDS: methylPREDNISolone SOD SUCC 125 MG/2ML VIAL IV SCH (09:09)
[2020-08-27] MEDS: Z GUARD REMEDY 2 OZ OINT TP SCH ×2 (09:09→21:07)
[2020-08-27] MEDS: POTASSIUM CL. PREMIX PERIPHER. 50 ML IV SCH ×3 (09:11→11:51)
--- NOTE | 2020-08-27 11:05 | NUR ---
FIELD SERVICE ENGINEER NOTES RECEIVED PATIENT ON BED, ALERT X 1, DOMINICAN SPEAKING, ON 2L O2 NASAL CANULA, NO SOB, O2 SAT WNL, NO DISTRESS, A.FIB HR IN 120'S , NO SIGNS OF PAIN, WITH LEFT NGT CLAMPED, CHECKED FOR PLACEMENT, R IJ TLC LEVO DRIP AT 0.02MCG, NS AT 75 ML/HR , SITE CLEAR. LEFT FEM A-LINE ZEROED, CVP ZEROED. NPO FOR NOW, SWALLOWING EVAL PENDING, GRAF CATH IN PLACE, WITH SMALL AMOUNT OF DARK YELLOW URINE. BILATERAL SOFT WRIST RESTRAINT RELEASED AND CHECKED FOR CIRCULATION , SR UP x3, CALL LIGHT WITHIN EASY REACH, BED LOCKED AND IN LOWEST POSITION, WILL CONT TO MONITOR .
--- NOTE | 2020-08-27 11:10 | NUR ---
BRAIDING OPERATOR NOTES REPORT GIVEN TO DOMINIQUE FOR ADAM. DUE MEDS GIVEN KCL IV BAG #2 OF 3 RUNNING.
[2020-08-27] MEDS ORDERED: PHENYLEPHRINE 50 MG in IV NS 0.9% 245 ML IV PRN (11:30)
[2020-08-27] MEDS ORDERED: ENOXAPARIN SODIUM 40 MG/0.4 ML DISP.SYRIN SQ SCH (11:30)
[2020-08-27] MEDS: PHENYLEPHRINE 50 MG in IV NS 0.9% 245 ML IV PRN (11:39)
[2020-08-27] MEDS ORDERED: DIGOXIN INJ 0.5 MG/2 ML AMPUL IV ONE ×2 (12:00→18:00)
--- NOTE | 2020-08-27 12:00 | NUR ---
RN NOTES BG =172 , 3 UNITS INSULIN SQ GIVEN PER SLIDING SCALE .
[2020-08-27] MEDS: INSULIN REGULAR, HUMAN 100 UNIT/ML 3 ML VIAL SQ PRN ×2 (12:28→17:42)
--- NOTE | 2020-08-27 15:40 | NUR ---
RN NOTES APPROVER NOTIFED REGARDING LOW URINE OUTPUT , NEW ORDER RECEIVED.
[2020-08-27] MEDS: IV D5/0.45 NACL 1,000 ML IV PRN (15:41)
[2020-08-27] MEDS ORDERED: RIVAROXABAN 10 MG TABLET PO SCH (18:00)
--- NOTE | 2020-08-27 18:45 | NUR ---
RN NOTES DR HAL PANCHALFED REGARDING PLT 69, XARELTO D/LUZ PER MD ORDER .
--- NOTE | 2020-08-27 18:55 | NUR ---
RN NOTES TWYLA STILL OFF , BP STABLE, PT TOLERATING O2 AT 2L N/C , O2 SAT WNL, R UPPER ARM PICC LINE SITE CLEAN, DRY AND INTACT, SR UP X3, CALL LIGHT WITHIN EASY REACH, BED LOCKED AND IN LOWEST POSITION, WILL ENDORSE TO SCALEHOUSE ATTENDANT NURSE FOR CONTINUITY OF CARE .
--- NOTE | 2020-08-27 20:00 | NUR ---
RN/ICU-RECEIVED PT. FROM DAYSHIFT RN.AWAKE, ALERT, SWEDISH SPEAKING, FOLLOWS SIMPLE COMMANDS, SPEECH GARBLED, W/ BILATERAL SOFT WRIST RESTRAINTS ON. ATTEMPTED TO RELEASED LEFT UPPER EXTREMITY RESTRAINT, NOTED PT. GRABBING NGT. SOFT WRIST RESTRAINT REAPPLIED. WILL CONTINUE TO MONITOR PER PROTOCOL. EKG ATRIAL FIBRILLATION W/ CVR. HR-91/MIN. BP-114/55. CVP-8. BREATHING COMES EASY W/ O2 SUPPORT OF 2L/ NC. SATS.-98%. AFEBRILE. W/ MULTIPLE SKIN ISSUES. REFER TO WOUND ASSESSMENT AND WOUND PHOTO FOR DETAILS.PT. IS A FULL CODE. NO S/S OF PAIN OR DISTRESS.
[2020-08-27] MEDS: acetaZOLAMIDE 250 MG TABLET PO SCH (20:59)
[2020-08-27] MEDS: ATORVASTATIN 40 MG TABLET PO SCH (21:34)
[2020-08-27] MEDS: SENNOSIDES 8.6 MG TABLET PO SCH (21:35)
[2020-08-28] VITALS (40 sets, daily range): BP systolic 72–131; BP diastolic 31–88
[2020-08-28] MEDS: INSULIN REGULAR, HUMAN 100 UNIT/ML 3 ML VIAL SQ PRN ×4 (00:26→17:15)
[2020-08-28] MEDS: BLOOD SUGAR DIAGNOSTIC 1 EACH STRIP IN SCH ×4 (00:27→17:05)
[2020-08-28] MEDS: IV D5/0.45 NACL 1,000 ML IV PRN ×3 (02:06→18:16)
[2020-08-28] MEDS: ALBUTEROL FS 2.5 MG/0.5 ML VIAL.NEB NEB SCH ×6 (04:08→23:20)
[2020-08-28] MEDS: IPRATROPIUM NEB FS 0.5 MG/2.5 ML AMPUL.NEB NEB SCH ×6 (04:08→23:20)
[2020-08-28 05:18] LABS: BASOPHILS # (AUTO) 0.1 /CMM (0.0-0.2); BASOPHILS % (AUTO) 0.4 % (0.0-2.0); HEMATOCRIT 29 % (33-45); LYMPHOCYTES # (AUTO) 0.1 /CMM (0.8-4.8); LYMPHOCYTES % (AUTO) 0.5 % (20.0-44.0); MEAN CORPUSCULAR HGB CONC 31 g/dl (31.0-36.0); MEAN CORPUSCULAR VOLUME 96 fL (82-100); MONOCYTES # (AUTO) 0.4 /CMM (0.1-1.30); MONOCYTES % (AUTO) 1.7 % (2.0-12.0); NEUTROPHILS # (AUTO) 23.7 /CMM (1.8-8.9); NEUTROPHILS % (AUTO) 97.4 % (43.0-81.0); PLATELET COUNT (AUTO) 62 /CMM (150-450); RED BLOOD CELL COUNT(AUTO) 2.98 MIL/uL (4.0-5.2); WHITE BLOOD COUNT (AUTO) 24.4 K/uL (4.3-11.0)
[2020-08-28 05:29] LABS: LYMPHOCYTES % (MANUAL) 2 % (16-48); MONOCYTES % (MANUAL) 4 % (0-11.0); NEUTROPHILS % (MANUAL) 94 (42-76)
[2020-08-28 05:30] LABS: CALCIUM, SERUM 6.8 mg/dL (8.5-10.1); CREATININE 0.9 mg/dL (0.6-1.3); MAGNESIUM 1.8 mg/dL (1.8-2.4); PHOSPHORUS 2.4 mg/dL (2.5-4.9); POTASSIUM 4.2 mmol/L (3.5-5.1)
[2020-08-28] MEDS: METRONIDAZOLE 500MG/ NS 100ML 500 MG in PREMIX 1 EA IV SCH ×2 (06:07→12:18)
--- NOTE | 2020-08-28 06:23 | NUR ---
RN/ICU- PT. REMAINS CALM, URINE OUT-200ML. NO S/S OF DISTRESS OR DISCOMFORT. REMAINS ON BSWR PER PROTOCOL.
[2020-08-28] MEDS: VANCOMYCIN HCL 0.75 GM in IV D5W 250 ML IV SCH (06:33)
--- NOTE | 2020-08-28 07:15 | NUR ---
CRITICAL CARE PARAMEDIC NOTES RECEIVED PATIENT AOX1 ABLE TO FOLLOW SIMPLE COMMANDS , CAYMAN ISLANDER SPEAKING , NOT IN ACUTE DISTRESS , RESPIRATIONS EVEN AND UNLABORED WITH SPO2 OF 100% VIA 2LPM ,AFIB 85 ON BEDSIDE MONITOR , L NARE NGT CLAMPED PATENT AND INTACT ASPIRATED NOTED WITH GREEN OUTPUT , FC DRAINING VIA GRAVITY ,RIGHT IJ TLC WITH D5 1/2 NS @ 125ML/HR INFUSING WELL , R FEMORAL MILO PATENT AND INTACT WITH GOOD BLOOD RETURN , WAVE FORM WNL , CVP 8-10 MMHG WITH GOOD WAVE FORM , ALL NEEDS ATTENDED ,WILL CONTINUE TO MONITOR .
[2020-08-28] MEDS: TIMOLOL MAL/DORZOLAM HCL OPHTH 10 ML BOTTLE RIGHTEYE SCH ×2 (08:54→16:19)
[2020-08-28] MEDS: acetaZOLAMIDE 250 MG TABLET PO SCH ×2 (08:54→21:17)
[2020-08-28] MEDS: BRIMONIDINE TARTRATE OPHT SOLN 5 ML BOTTLE LEFTEYE SCH ×3 (08:54→16:22)
[2020-08-28] MEDS: FAMOTIDINE/PF INJ 20 MG/2 ML VIAL IV SCH ×2 (08:55→21:17)
[2020-08-28] MEDS: MULTIVIT W/MINERALS 1 TAB TABLET PO SCH (08:55)
[2020-08-28] MEDS: CYANOCOBALAMIN 500 MCG TABLET PO SCH (08:55)
[2020-08-28] MEDS: POTASSIUM CHLORIDE 20 MEQ POWDER PACKET GT SCH (08:55)
[2020-08-28] MEDS: FERROUS SULFATE (325 MG) 325 MG/TAB TABLET PO SCH ×2 (08:55→16:19)
[2020-08-28] MEDS: CALCIUM CARB 600MG /VIT D 1 EACH TABLET PO SCH (08:55)
[2020-08-28] MEDS: METFORMIN 500 MG TABLET PO SCH ×2 (08:55→16:19)
[2020-08-28] MEDS: ASCORBIC ACID 500 MG TABLET PO SCH (08:55)
[2020-08-28] MEDS: SODIUM CHLORIDE 1000 MG TABLET PO SCH (08:55)
[2020-08-28] MEDS: MEROPENEM 1 G in IV NS 0.9% 100 ML IV SCH ×2 (08:56→21:17)
[2020-08-28] MEDS: Z GUARD REMEDY 2 OZ OINT TP SCH ×2 (08:56→21:18)
[2020-08-28] MEDS ORDERED: POTASSIUM CHLORIDE 20 MEQ TAB.PRT.SR PO SCH ×2 (09:00)
[2020-08-28] MEDS ORDERED: Sodium Phosphate 15 MMOL in IV NS 0.9% 245 ML IV SCH (11:00)
--- NOTE | 2020-08-28 12:33 | NUR ---
FIBERGLASS ROVING WINDER NOTES PAGED DR WHITEHEAD , DISCUSSED PT LABS , NO ACTIVE BLEEDING , VS WNL , OFF PRESSORS , PT STILL NPO , FAILED SWALLOW EVAL PT IS LETHARGIC , NO ACTIVE GI BLEED NOTED , NGT NOTED WITH MINIMAL GREENISH OUTPUT , PER OK TO START GT FEEDING PER DIETARY RECOMMENDATIONS NOTIFIED DR CARIAS THAT PS HAS NO ACTIVE BLEEDING , H/H 9.0/29 , NGT NOTED WITH GREENISH MINIMAL OUTPUT , PER OK TO START NGT FEEDING SPEECH THERAPY IN THE UNIT , NOTIFIED PT IS MORE AWAKE , FOLLOWED UP IF SHE CAN RE EVAL PT FOR SWALLOWING , PER ST SHE WILL SHE THE PT .
[2020-08-28] MEDS ORDERED: DEXTROSE 50%-WATER 50 ML DISP.SYRIN IV PRN (13:00)
--- NOTE | 2020-08-28 13:00 | NUR ---
OIL WELL ENGINEER NOTES VERIFY WITH DR MOLINA IF POTASSIUM 40MEQ NG DAILY OK TO GIVE K IS 4.2 , PER MD OK TO GIVE .
--- NOTE | 2020-08-28 15:08 | NUR ---
TRANSITION MGR RN NOTES SEEN AND EVALUATED BY DR RODRIGUEZ ,DISCUSSED LATEST BP VIA MILO , PT ALERT X1 ABLR TO FOLLOW COMMANDS , AFEBRILE , ON 2LPM NC SPO2 OF 100% , PER MD OK TO TRANSFER , CUSTOM SHOE DESIGNER AND MAKER CLEARED PT FOR TELE BED
[2020-08-28] MEDS: GLUCERNA 1.2 1,000 ML BOTTLE NG PRN (16:55)
--- NOTE | 2020-08-28 17:20 | NUR ---
ALARM INSTALLATION TECHNICIAN NOTES MILO DISCONTINUED , PRESSURED APPLY FOR 5MINS , NO BLEEDING NOTED RIGHT FEMORAL A LINE INSERTION SITE CLEAN AND DRY , NO BLEEDING NOTED UPON RE ASSESSMENT @ 1720 , WILL CONTINUE TO MONITOR.
--- NOTE | 2020-08-28 19:00 | NUR ---
Received patient drowsy,but arousable,opens eyes,mumbles words in Wallisian,moves both upper extremities but very weak.Not inany distress, breathing shallowbut regular and non labored. Generalized edema, both upper extremities weeping, left arm skin tear.Triple lumen catheter via left IJ ,intact with good blood return. Tube feeding increased to goal rate 35 ml/hr., will closely monitor residuals, Aspiration precaution observed. Patient with telemetry status,possible transfer .
--- NOTE | 2020-08-28 19:12 | NUR ---
EYE CARE PROFESSIONAL NOTES PATIENT STABLE AT THIS TIME AOX1 ABLE TO FOLLOW SIMPLE COMMANDS , TOGOLESE SPEAKING , NOT IN ACUTE DISTRESS , RESPIRATIONS EVEN AND UNLABORED WITH SPO2 OF 100% VIA 2LPM ,AFIB 8 ON BEDSIDE MONITOR , L NARE NGT WITH GLUCERNA @ 35ML/HR TOLERATING WELL WITH NO RESIDUALS , FC DRAINING VIA GRAVITY ,RIGHT IJ TLC WITH D5 1/2 NS @ 125ML/HR INFUSING WELL , ALL NEEDS ATTENDED ,REPORT GIVEN TO TINO FOR CONTINUITY OF CARE
[2020-08-28] MEDS: ATORVASTATIN 40 MG TABLET PO SCH (21:17)
[2020-08-28] MEDS: SENNOSIDES 8.6 MG TABLET PO SCH (21:25)
--- NOTE | 2020-08-28 22:00 | NUR ---
BP in the 80's systolic (87/50),will closely monitor ,BP check q 15 mins.Check both arms (right and left arm).
--- NOTE | 2020-08-28 23:00 | NUR ---
BP still low 88/51, MAP=60.Even when awake,bp still low.
[2020-08-29] VITALS (98 sets, daily range): BP systolic 66–131; BP diastolic 31–80
--- NOTE | 2020-08-29 | NUR ---
Remains very weak,still very drowsy but arousable,occasionally very awake,alert,talking in Occitan,screaming at times.BP still low. 0100 for the last 1 hour BP stayed in the low 80's systolic(q 15 mins check)
[2020-08-29] MEDS: BLOOD SUGAR DIAGNOSTIC 1 EACH STRIP IN SCH ×4 (00:27→17:29)
[2020-08-29] MEDS: INSULIN REGULAR, HUMAN 100 UNIT/ML 3 ML VIAL SQ PRN ×2 (00:31→06:36)
--- NOTE | 2020-08-29 00:50 | NUR ---
Called Dr. Reid,relayed about the consistent hypotension.Ordered NSS 500 ml bolus ,if does not respond may restart Neosynephrine to maintain MAP >65.
--- NOTE | 2020-08-29 01:10 | NUR ---
NSS bolus 500 ml started.
[2020-08-29] MEDS ORDERED: IV NS 0.9% 500 ML IV ONE (01:30)
--- NOTE | 2020-08-29 02:00 | NUR ---
bp still low after fluid challenge. 0230 Neosynephrine drip started @ 0.5 mcg/kg/min. to keep MAP.[address] Reid
[2020-08-29] MEDS: PHENYLEPHRINE 50 MG in IV NS 0.9% 245 ML IV PRN (02:23)
[2020-08-29] MEDS: IV D5/0.45 NACL 1,000 ML IV PRN ×2 (02:42→11:48)
[2020-08-29] MEDS: IPRATROPIUM NEB FS 0.5 MG/2.5 ML AMPUL.NEB NEB SCH ×6 (03:59→23:42)
[2020-08-29] MEDS: ALBUTEROL FS 2.5 MG/0.5 ML VIAL.NEB NEB SCH ×6 (03:59→23:42)
--- NOTE | 2020-08-29 04:00 | NUR ---
AM bath,tolerated turning without getting SOB
[2020-08-29 04:56] LABS: BASOPHILS % (AUTO) 0.1 % (0.0-2.0); EOSINOPHILS % (AUTO) 0.1 % (0.0-6.0); HEMATOCRIT 31 % (33-45); HEMOGLOBIN 9.8 g/dL (11.5-14.8); LYMPHOCYTES # (AUTO) 0.3 /CMM (0.8-4.8); LYMPHOCYTES % (AUTO) 1.4 % (20.0-44.0); MEAN CORPUSCULAR HGB CONC 31 g/dl (31.0-36.0); MEAN CORPUSCULAR VOLUME 96 fL (82-100); MONOCYTES # (AUTO) 0.2 /CMM (0.1-1.30); MONOCYTES % (AUTO) 1.3 % (2.0-12.0); NEUTROPHILS # (AUTO) 18.3 /CMM (1.8-8.9); NEUTROPHILS % (AUTO) 97.1 % (43.0-81.0); PLATELET COUNT (AUTO) 71 /CMM (150-450); RED BLOOD CELL COUNT(AUTO) 3.27 MIL/uL (4.0-5.2); WHITE BLOOD COUNT (AUTO) 18.8 K/uL (4.3-11.0)
[2020-08-29 05:06] LABS: CALCIUM, SERUM 6.5 mg/dL (8.5-10.1); CREATININE 0.7 mg/dL (0.6-1.3); MAGNESIUM 1.8 mg/dL (1.8-2.4); PHOSPHORUS 2.6 mg/dL (2.5-4.9); POTASSIUM 3.4 mmol/L (3.5-5.1)
[2020-08-29 05:19] LABS: LYMPHOCYTES % (MANUAL) 2 % (16-48); MONOCYTES % (MANUAL) 2 % (0-11.0); NEUTROPHILS % (MANUAL) 96 (42-76)
--- NOTE | 2020-08-29 07:00 | NUR ---
Report given to Garbiele MARTINEZ.Patient still on Neosynephrine but now back down to 0.5 mcg/kg/min.
--- NOTE | 2020-08-29 08:26 | NUR ---
received pt from rn night, drowsy, follows simple commands at times, A fib controlled, on 2L 02 sat well, lungs congested, BL hand edema, on alejo at 0.5mcg, NG to feeding tolerates well, f/c low output, MD aware, v/s stable, no pain, pt turned and repositioned.
[2020-08-29] MEDS: MULTIVIT W/MINERALS 1 TAB TABLET PO SCH (09:37)
[2020-08-29] MEDS: CALCIUM CARB 600MG /VIT D 1 EACH TABLET PO SCH (09:38)
[2020-08-29] MEDS: FERROUS SULFATE (325 MG) 325 MG/TAB TABLET PO SCH ×2 (09:38→16:26)
[2020-08-29] MEDS: ASCORBIC ACID 500 MG TABLET PO SCH (09:38)
[2020-08-29] MEDS: acetaZOLAMIDE 250 MG TABLET PO SCH ×2 (09:38→21:39)
[2020-08-29] MEDS: FAMOTIDINE/PF INJ 20 MG/2 ML VIAL IV SCH ×2 (09:38→21:40)
[2020-08-29] MEDS: SODIUM CHLORIDE 1000 MG TABLET PO SCH (09:38)
[2020-08-29] MEDS: POTASSIUM CHLORIDE 20 MEQ POWDER PACKET GT SCH (09:38)
[2020-08-29] MEDS: CYANOCOBALAMIN 500 MCG TABLET PO SCH (09:38)
[2020-08-29] MEDS: METFORMIN 500 MG TABLET PO SCH ×2 (09:38→16:26)
[2020-08-29] MEDS: TIMOLOL MAL/DORZOLAM HCL OPHTH 10 ML BOTTLE RIGHTEYE SCH ×2 (09:39→16:23)
[2020-08-29] MEDS: MEROPENEM 1 G in IV NS 0.9% 100 ML IV SCH ×2 (09:39→21:39)
[2020-08-29] MEDS: BRIMONIDINE TARTRATE OPHT SOLN 5 ML BOTTLE LEFTEYE SCH ×3 (09:39→16:23)
[2020-08-29] MEDS: Z GUARD REMEDY 2 OZ OINT TP SCH ×2 (09:40→21:40)
[2020-08-29] MEDS ORDERED: POTASSIUM CHLORIDE 20 MEQ POWDER PACKET NG ONE (11:00)
--- NOTE | 2020-08-29 16:20 | NUR ---
pt is resting in the bed, alert, follow simple commands, A fib, sat well on 2L 02, NG to feeding tolerates well, low urine output, receiving alejo at 0.4mcg, v/s stable, no pain, pt cleaned, changed and repositioned q2hrs.
[2020-08-29] MEDS: EPOETIN ALFA (10,000 UNIT) 10,000 UNIT/ML VIAL IJ SCH (17:11)
[2020-08-29] MEDS: ATORVASTATIN 40 MG TABLET PO SCH (21:40)
[2020-08-29] MEDS: SENNOSIDES 8.6 MG TABLET PO SCH (21:40)
[2020-08-30] VITALS (100 sets, daily range): BP systolic 66–137; BP diastolic 27–76
[2020-08-30] MEDS: BLOOD SUGAR DIAGNOSTIC 1 EACH STRIP IN SCH ×4 (00:48→17:11)
[2020-08-30] MEDS: INSULIN REGULAR, HUMAN 100 UNIT/ML 3 ML VIAL SQ PRN ×2 (01:17→06:20)
[2020-08-30] MEDS: GLUCERNA 1.2 1,000 ML BOTTLE NG PRN (03:02)
[2020-08-30] MEDS: IV D5/0.45 NACL 1,000 ML IV PRN ×2 (03:16→12:16)
[2020-08-30] MEDS: PHENYLEPHRINE 50 MG in IV NS 0.9% 245 ML IV PRN (03:19)
[2020-08-30] MEDS: ALBUTEROL FS 2.5 MG/0.5 ML VIAL.NEB NEB SCH ×5 (03:45→20:36)
[2020-08-30] MEDS: IPRATROPIUM NEB FS 0.5 MG/2.5 ML AMPUL.NEB NEB SCH ×5 (03:45→20:36)
[2020-08-30 04:50] LABS: CALCIUM, SERUM 6.5 mg/dL (8.5-10.1); CARBON DIOXIDE 17 mmol/L (21-32); CHLORIDE 110 mmol/L (98-107); CREATININE 0.7 mg/dL (0.6-1.3); GLUCOSE 213 mg/dL (74-106); POTASSIUM 4.3 mmol/L (3.5-5.1); SODIUM SERUM 137 mmol/L (136-145); UREA NITROGEN, BLOOD 20 mg/dL (7-18)
--- NOTE | 2020-08-30 07:26 | NUR ---
ICU Patient remains comfortable on 2L O2 via NC, no SOB, SPO2 >95%. Lethargic, able to verbalize name, sometimes follow simple commands such as "squeeze my fingers". Setswana speaking only. afib HR 90s. L NGT @55, glucerna feeding @35mL/hr, no s/s aspiration. 100mL residual. Garcia drained 125mL this shift. No BM, just smear. wound care completed as ordered and turned per protocol. LUE 4+ edema noted, day RN Gabriele flores. R IJ TLC intact, patent, infusing alejo 9see IV spreadhseet) + D51/2 NS@125mL/hr. temp 96F rectally, blood cultures done last night, gary brown endorsed
--- NOTE | 2020-08-30 08:25 | NUR ---
received pt from car shifter, alert, follows simple commands, A fib controlled, on 2L 02 sat well, NG to feeding poor tolerated, f/c low output, receiving alejo at 0.7 mcg, v/s stable, no pain, Karime hugger on for temp of 96.0, pt turned and repositioned.
[2020-08-30] MEDS: MULTIVIT W/MINERALS 1 TAB TABLET PO SCH (08:51)
[2020-08-30] MEDS: CYANOCOBALAMIN 500 MCG TABLET PO SCH (08:51)
[2020-08-30] MEDS: ASCORBIC ACID 500 MG TABLET PO SCH (08:51)
[2020-08-30] MEDS: CALCIUM CARB 600MG /VIT D 1 EACH TABLET PO SCH (08:51)
[2020-08-30] MEDS: BRIMONIDINE TARTRATE OPHT SOLN 5 ML BOTTLE LEFTEYE SCH ×3 (08:52→16:56)
[2020-08-30] MEDS: FAMOTIDINE/PF INJ 20 MG/2 ML VIAL IV SCH ×2 (08:52→21:35)
[2020-08-30] MEDS: MEROPENEM 1 G in IV NS 0.9% 100 ML IV SCH ×2 (08:52→21:34)
[2020-08-30] MEDS: FERROUS SULFATE (325 MG) 325 MG/TAB TABLET PO SCH ×2 (08:52→16:59)
[2020-08-30] MEDS: METFORMIN 500 MG TABLET PO SCH ×2 (08:52→16:59)
[2020-08-30] MEDS: POTASSIUM CHLORIDE 20 MEQ POWDER PACKET GT SCH (08:52)
[2020-08-30] MEDS: SODIUM CHLORIDE 1000 MG TABLET PO SCH (08:52)
[2020-08-30] MEDS: acetaZOLAMIDE 250 MG TABLET PO SCH ×2 (08:53→21:34)
[2020-08-30] MEDS: TIMOLOL MAL/DORZOLAM HCL OPHTH 10 ML BOTTLE RIGHTEYE SCH ×2 (08:54→16:57)
[2020-08-30] MEDS: Z GUARD REMEDY 2 OZ OINT TP SCH ×2 (08:54→21:35)
[2020-08-30 12:45] LABS: ABG BASE EXCESS -16.4 mmol/L; ABG OXYGEN SATURATION 90.1 % (92.0-98.5); ABG PCO2 57.9 mmHg (35.0-45.0); ABG PH 7.015 (7.350-7.450); ABG PO2 73.2 mmHg (75.0-100.0); AaDO2 58.1 mmHg; COHb 0.3 % (0.5-1.5); MetHb 0.6 % (0.0-1.5); O2Hb 89.3 % (94.0-97.0); SITE, ABG Other; VENT MODE, BG N/C 2LPM
--- NOTE | 2020-08-30 13:00 | NUR ---
patient's PH is 7.0,very lethargic, started on Bipap.
[2020-08-30 15:22] LABS: ABG BASE EXCESS -11.7 mmol/L; ABG OXYGEN SATURATION 96.2 % (92.0-98.5); ABG PCO2 29.9 mmHg (35.0-45.0); ABG PH 7.282 (7.350-7.450); ABG PO2 79.9 mmHg (75.0-100.0); AaDO2 170.9 mmHg; COHb 0.3 % (0.5-1.5); MetHb 0.3 % (0.0-1.5); O2Hb 95.6 % (94.0-97.0); SITE, ABG Right Brachial; VENT MODE, BG st 15/5 rr14
[2020-08-30] MEDS: Sodium Bicarbonate 100 MEQ in IV D5/0.45 NACL 1,000 ML IV PRN (15:23)
--- NOTE | 2020-08-30 20:37 | NUR ---
PT RCVD ON BIPAP 15/5, RATE 14, FIO2 40%. BIPAP PLUGGED INTO RED OUTLET, ALARMS SET AND AUDIBLE. AMBU BAG @ BEDSIDE. BREATHING TX GIVEN PER MD'S ORDER. NO ADVERSE REACTION NOTED. NO RESPIRATORY OR SOB NOTED AT THIS TIME. SKIN INTACT. WILL CONTINUE TO MONITOR T/O THE SHIFT.
[2020-08-30] MEDS: SENNOSIDES 8.6 MG TABLET PO SCH (21:35)
[2020-08-30] MEDS: ATORVASTATIN 40 MG TABLET PO SCH (21:35)
[2020-08-31] VITALS (94 sets, daily range): BP systolic 80–153; BP diastolic 46–93
[2020-08-31] MEDS: BLOOD SUGAR DIAGNOSTIC 1 EACH STRIP IN SCH ×5 (00:45→23:48)
[2020-08-31] MEDS: ALBUTEROL FS 2.5 MG/0.5 ML VIAL.NEB NEB SCH ×7 (00:45→23:35)
[2020-08-31] MEDS: IPRATROPIUM NEB FS 0.5 MG/2.5 ML AMPUL.NEB NEB SCH ×7 (00:45→23:35)
--- NOTE | 2020-08-31 00:45 | NUR ---
PATIENTS BS AT 0000 IS 172. INSULIN HELD PER START OF DAY SHIFT FEEDINGS ARE HELD DUE TO PATIENT BEING NEW ON BIPAP. WILL MONITOR.
[2020-08-31] MEDS: Sodium Bicarbonate 100 MEQ in IV D5/0.45 NACL 1,000 ML IV PRN ×3 (01:39→21:44)
[2020-08-31 04:29] LABS: BASOPHILS % (AUTO) 0.2 % (0.0-2.0); HEMATOCRIT 29 % (33-45); HEMOGLOBIN 8.9 g/dL (11.5-14.8); LYMPHOCYTES # (AUTO) 0.1 /CMM (0.8-4.8); LYMPHOCYTES % (AUTO) 0.4 % (20.0-44.0); MEAN CORPUSCULAR HGB CONC 31 g/dl (31.0-36.0); MEAN CORPUSCULAR VOLUME 99 fL (82-100); MONOCYTES # (AUTO) 0.3 /CMM (0.1-1.30); MONOCYTES % (AUTO) 1.4 % (2.0-12.0); NEUTROPHILS # (AUTO) 23.5 /CMM (1.8-8.9); RED BLOOD CELL COUNT(AUTO) 2.93 MIL/uL (4.0-5.2)
[2020-08-31 04:38] LABS: PLATELET COUNT (AUTO) 55 /CMM (150-450)
[2020-08-31] MEDS: PHENYLEPHRINE 50 MG in IV NS 0.9% 245 ML IV PRN (04:38)
[2020-08-31 04:42] LABS: CALCIUM, SERUM 6.7 mg/dL (8.5-10.1); CARBON DIOXIDE 19 mmol/L (21-32); CHLORIDE 109 mmol/L (98-107); CREATININE 0.8 mg/dL (0.6-1.3); GLUCOSE 215 mg/dL (74-106); MAGNESIUM 1.7 mg/dL (1.8-2.4); PHOSPHORUS 2.3 mg/dL (2.5-4.9); POTASSIUM 4.5 mmol/L (3.5-5.1); SODIUM SERUM 137 mmol/L (136-145); UREA NITROGEN, BLOOD 21 mg/dL (7-18)
--- NOTE | 2020-08-31 08:40 | NUR ---
received pt from shift engineer, drowsy, SR, on bipap sat well, receiving alejo at 0.7mcg, NG clamped, f/c low output MD aware, v/s stable, no pain, pt turned and repositioned.
[2020-08-31 08:41] LABS: ABG BASE EXCESS -9.1 mmol/L; ABG OXYGEN SATURATION 93.8 % (92.0-98.5); ABG PCO2 36.1 mmHg (35.0-45.0); ABG PH 7.284 (7.350-7.450); AaDO2 173.7 mmHg; COHb 0.3 % (0.5-1.5); MetHb 0.1 % (0.0-1.5); O2Hb 93.4 % (94.0-97.0); SITE, ABG Right Brachial; VENT MODE, BG ST 15 RR14%
[2020-08-31] MEDS: acetaZOLAMIDE 250 MG TABLET PO SCH ×2 (08:56→21:13)
[2020-08-31] MEDS: SODIUM CHLORIDE 1000 MG TABLET PO SCH (08:56)
[2020-08-31] MEDS: MULTIVIT W/MINERALS 1 TAB TABLET PO SCH (08:56)
[2020-08-31] MEDS: CYANOCOBALAMIN 500 MCG TABLET PO SCH (08:56)
[2020-08-31] MEDS: ASCORBIC ACID 500 MG TABLET PO SCH (08:56)
[2020-08-31] MEDS: FAMOTIDINE/PF INJ 20 MG/2 ML VIAL IV SCH ×2 (08:56→21:13)
[2020-08-31] MEDS: FERROUS SULFATE (325 MG) 325 MG/TAB TABLET PO SCH ×2 (08:56→17:25)
[2020-08-31] MEDS: METFORMIN 500 MG TABLET PO SCH ×2 (08:56→17:25)
[2020-08-31] MEDS: BRIMONIDINE TARTRATE OPHT SOLN 5 ML BOTTLE LEFTEYE SCH ×3 (08:57→17:25)
[2020-08-31] MEDS: POTASSIUM CHLORIDE 20 MEQ POWDER PACKET GT SCH (08:57)
[2020-08-31] MEDS: CALCIUM CARB 600MG /VIT D 1 EACH TABLET PO SCH (08:57)
[2020-08-31] MEDS: TIMOLOL MAL/DORZOLAM HCL OPHTH 10 ML BOTTLE RIGHTEYE SCH ×2 (08:58→17:25)
[2020-08-31] MEDS: Z GUARD REMEDY 2 OZ OINT TP SCH ×2 (08:58→21:17)
[2020-08-31] MEDS: MEROPENEM 1 G in IV NS 0.9% 100 ML IV SCH ×2 (09:17→21:01)
[2020-08-31] MEDS: INSULIN REGULAR, HUMAN 100 UNIT/ML 3 ML VIAL SQ PRN ×2 (11:56→23:50)
[2020-08-31] MEDS: Magnesium 1GM/D5W 100ML PREMIX 100 ML IV SCH ×2 (12:06→13:29)
[2020-08-31] MEDS: FUROSEMIDE 40 MG/4 ML VIAL IV SCH (12:15)
[2020-08-31 14:00] LABS: D-DIMER 3.63 mg/L(FEU (0.17-0.50)
[2020-08-31] MEDS ORDERED: NEUTRA PHOS 1 POWD.PACKET NG ONE (14:00)
[2020-08-31 14:36] LABS: ABG BASE EXCESS -9.3 mmol/L; ABG OXYGEN SATURATION 90.7 % (92.0-98.5); ABG PCO2 42.1 mmHg (35.0-45.0); ABG PH 7.237 (7.350-7.450); AaDO2 173.8 mmHg; COHb 0.3 % (0.5-1.5); MetHb 0.1 % (0.0-1.5); O2Hb 90.3 % (94.0-97.0); SITE, ABG Right Brachial; VENT MODE, BG 20/5 rr14 40%
[2020-08-31] MEDS ORDERED: EPINEPHRINE (1:10,000) SYRINGE 1 MG/10 ML DISP.SYRIN ONE (16:00)
--- NOTE | 2020-08-31 16:13 | NUR ---
Asystole on the monitor, code called, CPR started, first epi given, MD at the bedside intubating patient, with second epi able to pulpate the pulse, BP stable, sat 100%, still very lethargic.
--- NOTE | 2020-08-31 17:00 | NUR ---
pt family updated regarding patient's condition.
[2020-08-31 17:53] LABS: ABG BASE EXCESS -9.1 mmol/L; ABG OXYGEN SATURATION 99.3 % (92.0-98.5); ABG PH 7.255 (7.350-7.450); ABG PO2 209.6 mmHg (75.0-100.0); AaDO2 463.4 mmHg; COHb 0.3 % (0.5-1.5); MetHb 0.3 % (0.0-1.5); O2Hb 98.7 % (94.0-97.0); SITE, ABG Right Brachial; VENT MODE, BG AC 20 450 +5 100
--- NOTE | 2020-08-31 18:03 | NUR ---
pt is resting in the bed, lethargic, does not follow commands, A fib, sat well, NG clamped, receiving alejo at 0.7mcg, v/s stable, no pain, pt cleaned, changed and repositioned.
--- NOTE | 2020-08-31 20:00 | NUR ---
Received patient lethargic non verbal and orally intubated not following commands.S/P CODE BLUE day shift.Patient on full vent support as prescribed.Settings well tolerated.No respiratory distress noted.SR with occasional PAC'S per tele monitoring.Neosynephrine gttt infusing for BP support and will titrate accordingly to keep SBP>90.Delio gtt and Bicarb gtt infusing via RIJ TLC and site intact. Left nares NGT in place.Placement verified.Kept NPO.FC to gravity.Turned and repositioned.Continue monitoring.
[2020-08-31] MEDS: SENNOSIDES 8.6 MG TABLET PO SCH (21:13)
[2020-08-31] MEDS: ATORVASTATIN 40 MG TABLET PO SCH (21:13)
[2020-08-31] MEDS: IV NS 0.9% 250 ML IV PRN (21:32)
[2020-09-01] VITALS (97 sets, daily range): BP systolic 77–128; BP diastolic 32–67
--- NOTE | 2020-09-01 | NUR ---
FSBS monitored and coverage given per sliding scale.No distress noted.VSS.Turned and repositioned.
[2020-09-01] MEDS: ALBUTEROL FS 2.5 MG/0.5 ML VIAL.NEB NEB SCH ×6 (03:46→23:33)
[2020-09-01] MEDS: IPRATROPIUM NEB FS 0.5 MG/2.5 ML AMPUL.NEB NEB SCH ×6 (03:46→23:33)
[2020-09-01 05:13] LABS: CALCIUM, SERUM 6.6 mg/dL (8.5-10.1); CREATININE 0.6 mg/dL (0.6-1.3); MAGNESIUM 1.8 mg/dL (1.8-2.4); POTASSIUM 3.4 mmol/L (3.5-5.1)
--- NOTE | 2020-09-01 05:54 | NUR ---
RT NOTE Pt rec'd orally intubated via ETT sz 7.0 secured @ 21cm at the top lip line. Pt on [facility] vent settings on AC mode settings as charted. Pt sx'd for thick mod amt of blood tinged secretions. Alarms are set and audible. Ambu bag bedside. Vent plugged into red outlet. Will continue to monitor closely. Addendum: 09/01/20 at 0554 by NORI JOSUE RT Amended: Links added.
--- NOTE | 2020-09-01 06:00 | NUR ---
Patient remains lethargic.Maintained on same vent settings.Bed bath rendered.Complete linens changed.Turned and repositioned.IVF and Neosynephrine gtt infusing at 0.9 mcg. All due medications administered.All needs met.Will endorse to day shift for félix.
[2020-09-01] MEDS: BLOOD SUGAR DIAGNOSTIC 1 EACH STRIP IN SCH ×4 (06:27→23:54)
[2020-09-01] MEDS: INSULIN REGULAR, HUMAN 100 UNIT/ML 3 ML VIAL SQ PRN (06:28)
--- NOTE | 2020-09-01 07:15 | NUR ---
RT PATIENT REC'D ORALLY INTUBATED ON [facility] VENT WITH ORDERED SETTINGS. ALARMS CHECKED + AUDIBLE. AMBU BAG AT [facility]. PATIENT APPEARS COMFORTABLE. MAINTAIN CURRENT RESPIRATORY CARE. Addendum: 09/01/20 at 1526 by VALERIE LUJAN RT Amended: Links added.
[2020-09-01 08:02] LABS: ABG BASE EXCESS -4.5 mmol/L; ABG OXYGEN SATURATION 97.2 % (92.0-98.5); ABG PCO2 25.8 mmHg (35.0-45.0); ABG PH 7.468 (7.350-7.450); ABG PO2 86.4 mmHg (75.0-100.0); AaDO2 241.1 mmHg; COHb 0.3 % (0.5-1.5); MetHb 0.6 % (0.0-1.5); O2Hb 96.3 % (94.0-97.0); SITE, ABG Right Brachial
[2020-09-01] MEDS: PHENYLEPHRINE 50 MG in IV NS 0.9% 245 ML IV PRN (08:16)
[2020-09-01] MEDS: Sodium Bicarbonate 100 MEQ in IV D5/0.45 NACL 1,000 ML IV PRN (08:16)
[2020-09-01] MEDS: FAMOTIDINE/PF INJ 20 MG/2 ML VIAL IV SCH ×2 (08:31→21:01)
[2020-09-01] MEDS: SODIUM CHLORIDE 1000 MG TABLET PO SCH (08:31)
[2020-09-01] MEDS: CALCIUM CARB 600MG /VIT D 1 EACH TABLET PO SCH (08:32)
[2020-09-01] MEDS: MULTIVIT W/MINERALS 1 TAB TABLET PO SCH (08:32)
[2020-09-01] MEDS: ASCORBIC ACID 500 MG TABLET PO SCH (08:32)
[2020-09-01] MEDS: POTASSIUM CHLORIDE 20 MEQ POWDER PACKET GT SCH (08:32)
[2020-09-01] MEDS: acetaZOLAMIDE 250 MG TABLET PO SCH ×2 (08:32→21:01)
[2020-09-01] MEDS: METFORMIN 500 MG TABLET PO SCH ×2 (08:32→18:41)
[2020-09-01] MEDS: FUROSEMIDE 40 MG/4 ML VIAL IV SCH (08:32)
[2020-09-01] MEDS: FERROUS SULFATE (325 MG) 325 MG/TAB TABLET PO SCH ×2 (08:32→18:41)
[2020-09-01] MEDS: CYANOCOBALAMIN 500 MCG TABLET PO SCH (08:32)
[2020-09-01] MEDS: MEROPENEM 1 G in IV NS 0.9% 100 ML IV SCH ×2 (08:34→21:01)
[2020-09-01] MEDS: Z GUARD REMEDY 2 OZ OINT TP SCH ×2 (08:35→21:02)
[2020-09-01] MEDS: BRIMONIDINE TARTRATE OPHT SOLN 5 ML BOTTLE LEFTEYE SCH ×3 (08:35→18:41)
[2020-09-01] MEDS: TIMOLOL MAL/DORZOLAM HCL OPHTH 10 ML BOTTLE RIGHTEYE SCH ×2 (08:35→18:41)
--- NOTE | 2020-09-01 09:30 | NUR ---
patient intubated, ABG done, pH 7.468, 100meq bicarb drip w/ D5 dc'd per Dr. Jacobson order
--- NOTE | 2020-09-01 13:16 | NUR ---
patient BG 75, no glucose source, per Dr. Jacobson order- restart previous TF via NGT @20mL/hr
[2020-09-01] MEDS: GLUCERNA 1.2 1,000 ML BOTTLE NG PRN (14:25)
--- NOTE | 2020-09-01 17:03 | NUR ---
per Dr. Slaughter, check CVP. -> checked, transducer leveled, zero'd with charge machine operator Cecile. CVP = 6. Dr. Slaughter notified and received orders to DC IV Lasix
[2020-09-01] MEDS: ACETAMINOPHEN 650 MG/20.3 ML UDC NG PRN (18:41)
--- NOTE | 2020-09-01 19:00 | NUR ---
ICU summary Patient opened eyes once to deep pain. Made eye contact? Did not follow command. cough reflex + . no sedation. Otherwise, patient did not open eyes throughout shift even with sternal rub or communication in Icelandic. SR w/ BBB HR 80s. LNGT @55 nose tip, in place, verified via auscultation+aspiration, feeding started. 1 large BM. Garcia draining, see output. Viji urine. Wound care completed, turned per protocol. RIJ TLC infusing alejo, see IV spreadsheet. see prior note about bicarb DC critical blood glucose - d50 given. tmax 100, tylenol given. Sputum cx sent. small amount of secretions
--- NOTE | 2020-09-01 20:00 | NUR ---
Received patient lethargic responsive to deep painful stimuli.Open eyes but not following commands.No sedation infusing.Patient on full vent support tolerating well.SR with BBB. Neosynephrine gtt infusing and will titrate accordingly to keep SBP >90.NGT feeding infusing no residual noted.Maintained HOB elevated.FC to gravity.Turned and repositioned. No acute distress noted.
[2020-09-01] MEDS: ATORVASTATIN 40 MG TABLET PO SCH (21:02)
[2020-09-01] MEDS: SENNOSIDES 8.6 MG TABLET PO SCH (21:02)
[2020-09-01] MEDS: IV NS 0.9% 250 ML IV PRN (22:00)
[2020-09-02] VITALS (93 sets, daily range): BP systolic 66–128; BP diastolic 43–80
--- NOTE | 2020-09-02 | NUR ---
Patient resting.VSS.FSBS 68.NGT feeding continued. Will monitor for changes.Turned and repositioned.
[2020-09-02] MEDS ORDERED: PHENYLEPHRINE 10 MG/ML VIAL ONE (02:40)
[2020-09-02] MEDS: PHENYLEPHRINE 50 MG in IV NS 0.9% 245 ML IV PRN ×2 (03:06→17:45)
[2020-09-02] MEDS: ALBUTEROL FS 2.5 MG/0.5 ML VIAL.NEB NEB SCH ×6 (04:09→23:34)
[2020-09-02] MEDS: IPRATROPIUM NEB FS 0.5 MG/2.5 ML AMPUL.NEB NEB SCH ×6 (04:09→23:34)
[2020-09-02 05:24] LABS: HEMATOCRIT 27 % (33-45); HEMOGLOBIN 8.6 g/dL (11.5-14.8); LYMPHOCYTES # (AUTO) 0.5 /CMM (0.8-4.8); LYMPHOCYTES % (AUTO) 1.6 % (20.0-44.0); MEAN CORPUSCULAR HGB CONC 32 g/dl (31.0-36.0); MEAN CORPUSCULAR VOLUME 96 fL (82-100); MONOCYTES # (AUTO) 0.4 /CMM (0.1-1.30); MONOCYTES % (AUTO) 1.6 % (2.0-12.0); NEUTROPHILS # (AUTO) 26.8 /CMM (1.8-8.9); NEUTROPHILS % (AUTO) 96.8 % (43.0-81.0); RED BLOOD CELL COUNT(AUTO) 2.84 MIL/uL (4.0-5.2); WHITE BLOOD COUNT (AUTO) 27.7 K/uL (4.3-11.0)
[2020-09-02 05:27] LABS: PLATELET COUNT (AUTO) 38 /CMM (150-450)
[2020-09-02] MEDS: BLOOD SUGAR DIAGNOSTIC 1 EACH STRIP IN SCH ×3 (05:39→17:44)
[2020-09-02 05:45] LABS: CALCIUM, SERUM 6.8 mg/dL (8.5-10.1); CARBON DIOXIDE 21 mmol/L (21-32); CHLORIDE 111 mmol/L (98-107); CREATININE 0.7 mg/dL (0.6-1.3); GLUCOSE 78 mg/dL (74-106); MAGNESIUM 1.7 mg/dL (1.8-2.4); SODIUM SERUM 141 mmol/L (136-145); UREA NITROGEN, BLOOD 19 mg/dL (7-18)
[2020-09-02 05:57] LABS: LYMPHOCYTES % (MANUAL) 5 % (16-48); MONOCYTES % (MANUAL) 4 % (0-11.0); NEUTROPHILS % (MANUAL) 91 (42-76)
[2020-09-02 06:16] LABS: POTASSIUM 2.8 mmol/L (3.5-5.1)
--- NOTE | 2020-09-02 07:00 | NUR ---
Patient resting more awake open eyes several times early this morning but not following commands.Levophed infusing.Tolerating ngt feeding.BMx2 loose brown stools.Patient platelets 38 and K+ LEVEL 2.8 called to with orders received.Endorse to day shift RN for félix. All needs met.
[2020-09-02 08:04] LABS: ABG BASE EXCESS -4.3 mmol/L; ABG OXYGEN SATURATION 95.2 % (92.0-98.5); ABG PCO2 27.2 mmHg (35.0-45.0); ABG PH 7.454 (7.350-7.450); ABG PO2 70.5 mmHg (75.0-100.0); AaDO2 183.4 mmHg; COHb 0.1 % (0.5-1.5); MetHb 0.3 % (0.0-1.5); O2Hb 94.8 % (94.0-97.0); SITE, ABG Right Radial
[2020-09-02] MEDS: Z GUARD REMEDY 2 OZ OINT TP SCH ×2 (08:13→21:01)
[2020-09-02] MEDS: TIMOLOL MAL/DORZOLAM HCL OPHTH 10 ML BOTTLE RIGHTEYE SCH ×2 (08:13→17:43)
[2020-09-02] MEDS: BRIMONIDINE TARTRATE OPHT SOLN 5 ML BOTTLE LEFTEYE SCH ×3 (08:13→17:43)
[2020-09-02] MEDS: FAMOTIDINE/PF INJ 20 MG/2 ML VIAL IV SCH (08:18)
[2020-09-02] MEDS: METFORMIN 500 MG TABLET PO SCH ×2 (08:18→17:47)
[2020-09-02] MEDS: CALCIUM CARB 600MG /VIT D 1 EACH TABLET PO SCH (08:18)
[2020-09-02] MEDS: FERROUS SULFATE (325 MG) 325 MG/TAB TABLET PO SCH ×2 (08:18→17:47)
[2020-09-02] MEDS: acetaZOLAMIDE 250 MG TABLET PO SCH ×2 (08:18→21:00)
[2020-09-02] MEDS: POTASSIUM CHLORIDE 20 MEQ POWDER PACKET GT SCH (08:18)
[2020-09-02] MEDS: SODIUM CHLORIDE 1000 MG TABLET PO SCH (08:18)
[2020-09-02] MEDS: MULTIVIT W/MINERALS 1 TAB TABLET PO SCH (08:18)
[2020-09-02] MEDS: ASCORBIC ACID 500 MG TABLET PO SCH (08:18)
[2020-09-02] MEDS: CYANOCOBALAMIN 500 MCG TABLET PO SCH (08:21)
[2020-09-02] MEDS: MEROPENEM 1 G in IV NS 0.9% 100 ML IV SCH ×2 (08:21→21:00)
[2020-09-02] MEDS: POTASSIUM CL. PREMIX PERIPHER. 50 ML IV SCH ×4 (09:37→13:59)
[2020-09-02] MEDS: ACETAMINOPHEN 650 MG/20.3 ML UDC NG PRN (10:05)
--- NOTE | 2020-09-02 10:05 | NUR ---
temp 99.8 F rectal, tylenol given
--- NOTE | 2020-09-02 10:12 | NUR ---
ABG done. weaning trial per Dr. Jacobson, increased WOB, accessory muscle use & tachycardia (HR 108-113) after 1 hour. patient placed back on prior vent settings/AC mode by RT
[2020-09-02] MEDS ORDERED: NEUTRA PHOS 1 POWD.PACKET GT ONE (11:30)
--- NOTE | 2020-09-02 11:59 | NUR ---
patient vomited small amount of NGTF. No respiratory distress, SPO2 98%, suctioned via ETT + orally to maintain airway. L NGT placement verified via auscultation & aspiration, remains @65 marking tip of nose, same as this am. ginny lorenz & HUY central line dressing changed Addendum: 09/02/20 at 1257 by JATINDER POWELL RN no residual aspirated from NGT
--- NOTE | 2020-09-02 12:03 | NUR ---
patient seen by Dr. Slaughter, CVP 6, received orders to bolus 500NS
[2020-09-02] MEDS ORDERED: IV NS 0.9% 500 ML IV ONE (12:30)
[2020-09-02] MEDS: Magnesium 1GM/D5W 100ML PREMIX 100 ML IV SCH ×2 (15:34→17:36)
[2020-09-02] MEDS: GLUCERNA 1.2 1,000 ML BOTTLE NG PRN (17:35)
[2020-09-02] MEDS: ERGOCALCIFEROL (VITAMIN D 2) 50,000 UNIT CAPSULE PO SCH (17:47)
--- NOTE | 2020-09-02 19:25 | NUR ---
ICU closing Patient opens eyes to stimuli sometimes. Responds to pain. Made eye contact? Does not follow command. cough reflex + . no sedation. SR w/ BBB HR 80s. LNGT @55 nose tip, in place, verified via auscultation+aspiration, feeding infusing, no s/s aspiration, no residual. 1 large BM. Garcia draining, see output. Viji urine. Wound care completed, turned per protocol. RIJ TLC infusing alejo, see IV spreadsheet. see prior notes about shift events. tmax 99.8 tylenol given.
[2020-09-02] MEDS: ATORVASTATIN 40 MG TABLET PO SCH (21:00)
[2020-09-02] MEDS: FAMOTIDINE (20 MG) 20 MG TABLET GT SCH (21:00)
[2020-09-02] MEDS: SENNOSIDES 8.6 MG TABLET PO SCH (21:01)
[2020-09-03] VITALS (88 sets, daily range): BP systolic 82–129; BP diastolic 40–85
[2020-09-03] MEDS: BLOOD SUGAR DIAGNOSTIC 1 EACH STRIP IN SCH ×4 (00:26→17:38)
[2020-09-03] MEDS: IPRATROPIUM NEB FS 0.5 MG/2.5 ML AMPUL.NEB NEB SCH ×6 (02:36→23:31)
[2020-09-03] MEDS: ALBUTEROL FS 2.5 MG/0.5 ML VIAL.NEB NEB SCH ×6 (02:36→23:32)
[2020-09-03 05:02] LABS: BASOPHILS % (AUTO) 0.1 % (0.0-2.0); HEMATOCRIT 27 % (33-45); HEMOGLOBIN 8.6 g/dL (11.5-14.8); LYMPHOCYTES # (AUTO) 0.4 /CMM (0.8-4.8); LYMPHOCYTES % (AUTO) 1.7 % (20.0-44.0); MEAN CORPUSCULAR HGB CONC 32 g/dl (31.0-36.0); MEAN CORPUSCULAR VOLUME 96 fL (82-100); MONOCYTES # (AUTO) 0.3 /CMM (0.1-1.30); MONOCYTES % (AUTO) 1.2 % (2.0-12.0); NEUTROPHILS # (AUTO) 22.8 /CMM (1.8-8.9); RED BLOOD CELL COUNT(AUTO) 2.82 MIL/uL (4.0-5.2); WHITE BLOOD COUNT (AUTO) 23.5 K/uL (4.3-11.0)
[2020-09-03 05:05] LABS: PLATELET COUNT (AUTO) 43 /CMM (150-450)
[2020-09-03 05:15] LABS: CALCIUM, SERUM 6.8 mg/dL (8.5-10.1); CARBON DIOXIDE 21 mmol/L (21-32); CHLORIDE 112 mmol/L (98-107); CREATININE 0.9 mg/dL (0.6-1.3); GLUCOSE 125 mg/dL (74-106); MAGNESIUM 2.1 mg/dL (1.8-2.4); PHOSPHORUS 2.8 mg/dL (2.5-4.9); POTASSIUM 4.4 mmol/L (3.5-5.1); SODIUM SERUM 140 mmol/L (136-145); UREA NITROGEN, BLOOD 23 mg/dL (7-18)
[2020-09-03 05:27] LABS: LYMPHOCYTES % (MANUAL) 2 % (16-48); MONOCYTES % (MANUAL) 2 % (0-11.0); NEUTROPHILS % (MANUAL) 96 (42-76)
[2020-09-03] MEDS: IV NS 0.9% 250 ML IV PRN (06:50)
--- NOTE | 2020-09-03 07:33 | NUR ---
WOUND CARE FOLLOW UP: PT SEEN FOR SACRAL DEEP TISSUE INJURY, NOW IN EVOLUTION, PRESENT ON ADMISSION. RECOMMENDATIONS MADE FOR SKIIN PROTECTION AND WOUND CARE. DISCUSSED WITH NURSING STAFF. PT IS ON JANAK ISOFLEX LOW AIRLOSS BED. PT NOTED TO HAVE WEEPING EDEMA TO ARMS, LEGS AND GROIN AREAS. PT IS CURRENTLY INTUBATED. MD IN AGREEMENT WITH PLAN OF CARE.
--- NOTE | 2020-09-03 08:00 | NUR ---
COMPTOMETRIST NOTES Received patient intubated EET -04/18, AC-24, peep -10, TV- 300, Fio-60. no acute respiratory distress, no sedation. SR w/ BBB HR 80s.NGT @ 20 cc/hr intact residual 10, placement and residual checked, in place, verified via auscultation+aspiration, feeding infusing, no s/s aspiration. Garcia draining draining yellow output, seen Wound nurse, turned per protocol. RIJ TLC infusing alejo 1.1mcg/kg/hr, and TKO 10 ml/hr intact, patient has skin failure dripping fluids upper arms, BLE, and abdomen areas. DVT pump on. will follow monitoring.
[2020-09-03] MEDS: PHENYLEPHRINE 50 MG in IV NS 0.9% 245 ML IV PRN ×2 (09:05→23:39)
[2020-09-03] MEDS: MEROPENEM 1 G in IV NS 0.9% 100 ML IV SCH ×2 (09:06→20:45)
[2020-09-03] MEDS: CYANOCOBALAMIN 500 MCG TABLET PO SCH (09:26)
[2020-09-03] MEDS: FAMOTIDINE (20 MG) 20 MG TABLET GT SCH ×2 (09:27→20:41)
[2020-09-03] MEDS: ASCORBIC ACID 500 MG TABLET PO SCH (09:27)
[2020-09-03] MEDS: acetaZOLAMIDE 250 MG TABLET PO SCH ×2 (09:27→20:42)
[2020-09-03] MEDS: POTASSIUM CHLORIDE 20 MEQ POWDER PACKET GT SCH (09:27)
[2020-09-03] MEDS: MULTIVIT W/MINERALS 1 TAB TABLET PO SCH (09:27)
[2020-09-03] MEDS: BRIMONIDINE TARTRATE OPHT SOLN 5 ML BOTTLE LEFTEYE SCH ×3 (09:27→17:38)
[2020-09-03] MEDS: TIMOLOL MAL/DORZOLAM HCL OPHTH 10 ML BOTTLE RIGHTEYE SCH ×2 (09:27→17:38)
[2020-09-03] MEDS: METFORMIN 500 MG TABLET PO SCH ×2 (09:27→17:42)
[2020-09-03] MEDS: FERROUS SULFATE (325 MG) 325 MG/TAB TABLET PO SCH ×2 (09:27→17:42)
[2020-09-03] MEDS: CALCIUM CARB 600MG /VIT D 1 EACH TABLET PO SCH (09:27)
[2020-09-03] MEDS: SODIUM CHLORIDE 1000 MG TABLET PO SCH (09:27)
[2020-09-03] MEDS: Z GUARD REMEDY 2 OZ OINT TP SCH ×2 (09:28→22:37)
--- NOTE | 2020-09-03 13:10 | NUR ---
rn notes titrated norsynephrine 0.5 mcg at this time, monitoring sbp.
--- NOTE | 2020-09-03 18:45 | NUR ---
RN NOTES PM CARE DONE, NGTF INFUSING WELL 20CC/HR, INTACT. ADMINISTERED DUE MEDICATION, INFUSING TWYLA 1 MCG AT THIS TIME, ASSIST TURN AND REPOSTION Q 2 HR, DRESSING CHANGED, NEEDS ATTENDED AND ANTICIPATED, GRAF DRAINING DARK YELLOW OUTPUT. ENDORSED ONCOMING NURSE FOLLOW PLAN OF CARE.
--- NOTE | 2020-09-03 19:00 | NUR ---
Received patient orally intubated to the ventilator on AC mode,lethargic, opes eyes and grimaces to pain, no movement of extremities observed even to deep pain, + cough when suctioned . Not in any respiratory distress, breathing non labored. On Neosynephrine drip for BP support infusing via Triple Lumen cath. Feeding via NGT ,Aspiration Precaution implemented. Generalized edema,with weeping of both upper extremities.Noted to be tachycardic HR in the low 100's, Afib.
[2020-09-03] MEDS: GLUCERNA 1.2 1,000 ML BOTTLE NG PRN (19:22)
[2020-09-03] MEDS: ATORVASTATIN 40 MG TABLET PO SCH (20:42)
--- NOTE | 2020-09-03 20:52 | NUR ---
Received Pt. on Vent AC 16 300 40% +5. On ET tube 7.0 21cm @ lip. No signs of respiratory distress. Suctioned small amounts of thick yellow secretions. Ambu bag at bedside. Pt. appears comfortable. Will continue to monitor. Addendum: 09/03/20 at 2051 by HAM SMALLS RT Amended: Links added.
[2020-09-03] MEDS: SENNOSIDES 8.6 MG TABLET PO SCH (22:37)
[2020-09-04] VITALS (93 sets, daily range): BP systolic 67–133; BP diastolic 32–78
--- NOTE | 2020-09-04 | NUR ---
No change,remains lethargic,saturating well, still on Neosynephrine for BP support.Comfort carte done.
[2020-09-04] MEDS: BLOOD SUGAR DIAGNOSTIC 1 EACH STRIP IN SCH ×4 (00:13→17:19)
--- NOTE | 2020-09-04 02:00 | NUR ---
seems more responsive,looks more awake .Still on Pressors. 0400 AM bath done.,tolerated turning/moving.
[2020-09-04] MEDS: IPRATROPIUM NEB FS 0.5 MG/2.5 ML AMPUL.NEB NEB SCH ×6 (03:41→23:49)
[2020-09-04] MEDS: ALBUTEROL FS 2.5 MG/0.5 ML VIAL.NEB NEB SCH ×6 (03:41→23:49)
[2020-09-04 05:00] LABS: BASOPHILS % (AUTO) 0.1 % (0.0-2.0); EOSINOPHILS % (AUTO) 0.1 % (0.0-6.0); HEMATOCRIT 26 % (33-45); LYMPHOCYTES # (AUTO) 0.4 /CMM (0.8-4.8); LYMPHOCYTES % (AUTO) 2.2 % (20.0-44.0); MEAN CORPUSCULAR HGB CONC 31 g/dl (31.0-36.0); MEAN CORPUSCULAR VOLUME 98 fL (82-100); MONOCYTES # (AUTO) 0.2 /CMM (0.1-1.30); MONOCYTES % (AUTO) 1.2 % (2.0-12.0); NEUTROPHILS # (AUTO) 16.9 /CMM (1.8-8.9); NEUTROPHILS % (AUTO) 96.4 % (43.0-81.0); RED BLOOD CELL COUNT(AUTO) 2.69 MIL/uL (4.0-5.2); WHITE BLOOD COUNT (AUTO) 17.5 K/uL (4.3-11.0)
[2020-09-04 05:02] LABS: PLATELET COUNT (AUTO) 41 /CMM (150-450)
[2020-09-04 05:20] LABS: LYMPHOCYTES % (MANUAL) 2 % (16-48); MONOCYTES % (MANUAL) 2 % (0-11.0); NEUTROPHILS % (MANUAL) 96 (42-76)
[2020-09-04 05:56] LABS: CALCIUM, SERUM 7.2 mg/dL (8.5-10.1); CREATININE 0.9 mg/dL (0.6-1.3); POTASSIUM 5.2 mmol/L (3.5-5.1)
[2020-09-04 06:00] LABS: MAGNESIUM 2.2 mg/dL (1.8-2.4)
--- NOTE | 2020-09-04 07:00 | NUR ---
Remains lethargic on the ventilator,not in any distress. Still on Neosynephrine drip for Bp support.Report given to Sayra MARTINEZ.
--- NOTE | 2020-09-04 07:45 | NUR ---
RN OPENING NOTE: RECEIVED PATIENT IN BED THIS MORNING. PATIENT IS INTUBATED, LETHARGIC, UNABLE TO RESPOND TO STIMULI. UNCONTROLLED AFIB IN THE 110S NOTED ON THE BEDSIDE MONITOR. NGT RUNNING TF. GRAF DRAINING URINE. WOUND CARE PER ORDERS. RIJ C/D/I, FLUSHING WELL, NO SIGNS OF COMPLICATIONS NOTED. ON PRESSORS TO REGULATE BP. SAFETY MEASURES IMPLEMENTED, BED IN LOWEST POSITION, LOCKED, SIDE RAILS UP, CALL LIGHT WITHIN REACH. WILL CONTINUE TO MONITOR PATIENT FOR CHANGES.
[2020-09-04] MEDS: MULTIVIT W/MINERALS 1 TAB TABLET PO SCH (08:16)
[2020-09-04] MEDS: acetaZOLAMIDE 250 MG TABLET PO SCH (08:16)
[2020-09-04] MEDS: CALCIUM CARB 600MG /VIT D 1 EACH TABLET PO SCH (08:16)
[2020-09-04] MEDS: POTASSIUM CHLORIDE 20 MEQ POWDER PACKET GT SCH (08:16)
[2020-09-04] MEDS: MEROPENEM 1 G in IV NS 0.9% 100 ML IV SCH ×2 (08:16→21:48)
[2020-09-04] MEDS: FERROUS SULFATE (325 MG) 325 MG/TAB TABLET PO SCH ×2 (08:16→17:07)
[2020-09-04] MEDS: METFORMIN 500 MG TABLET PO SCH ×2 (08:17→17:07)
[2020-09-04] MEDS: CYANOCOBALAMIN 500 MCG TABLET PO SCH (08:17)
[2020-09-04] MEDS: SODIUM CHLORIDE 1000 MG TABLET PO SCH (08:17)
[2020-09-04] MEDS: FAMOTIDINE (20 MG) 20 MG TABLET GT SCH ×2 (08:17→21:46)
[2020-09-04] MEDS: TIMOLOL MAL/DORZOLAM HCL OPHTH 10 ML BOTTLE RIGHTEYE SCH ×2 (08:27→17:08)
[2020-09-04] MEDS: ASCORBIC ACID 500 MG TABLET PO SCH (08:27)
[2020-09-04] MEDS: BRIMONIDINE TARTRATE OPHT SOLN 5 ML BOTTLE LEFTEYE SCH ×3 (08:27→17:08)
[2020-09-04] MEDS: Z GUARD REMEDY 2 OZ OINT TP SCH ×2 (08:35→21:50)
[2020-09-04] MEDS: PHENYLEPHRINE 50 MG in IV NS 0.9% 245 ML IV PRN (13:29)
--- NOTE | 2020-09-04 14:00 | NUR ---
DR CRUZ'S PROGRAM DIRECTOR SUBSTANCE ABUSE AWARE OF THE PATIENT'S PLATELETS 41
--- NOTE | 2020-09-04 19:00 | NUR ---
RN CLOSING NOTE: PATIENT REMAINS IN ROOM. NO SIGNS OF ACUTE DISTRESS NOTED AT THIS TIME. SR IN THE 90S WITH FIRST DEGREE BLOCK NOTED ON THE BEDSIDE MONITOR. SAFETY MEASURES IMPLEMENTED, BED IN LOWEST POSITION, LOCKED, SIDE RAILS UP, CALL LIGHT WITHIN REACH. WILL ENDORSE TO ONCOMING SHIFT RN FOR CONTINUITY OF CARE.
--- NOTE | 2020-09-04 19:30 | NUR ---
HOT STICK MAN NOTES RECEIVED PATIENT IN BED, SLEEPING/EYES CLOSED. PATIENT ORALLY INTUBATED, ON MECHANICAL VENTILATION, TOLERATING CURRENT SETTINGS, NO RESPIRATORY DISTRESS AT THIS TIME. BEDSIDE TELEMETRY MONITORING SHOWS AFIB, SOMETIMES GOING INTO SINUS RHYTHM/SINUS TACHYCARDIA WITH PACs. WILL MONITOR CLSOELY. RIJ PATENT AND INTACT, INFUSING NEOSYNEPHRINE DRIP @ 1.9 MCG/KG/MIN. LEFT NARE NGT PATENT AND INTACT, ONGOING TUBE FEEDINGS, TOLERATING WELL, NO GASTRIC RESIDUALS. GRAF CATHETER DRAINING DARK YELLOW/ISRAEL COLORED URINE. WILL MONITOR CLOSELY
[2020-09-04] MEDS: ATORVASTATIN 40 MG TABLET PO SCH (21:46)
[2020-09-04] MEDS: SENNOSIDES 8.6 MG TABLET PO SCH (21:46)
[2020-09-05] VITALS (94 sets, daily range): BP systolic 80–126; BP diastolic 40–77
[2020-09-05] MEDS: PHENYLEPHRINE 50 MG in IV NS 0.9% 245 ML IV PRN ×3 (00:18→21:51)
[2020-09-05] MEDS: BLOOD SUGAR DIAGNOSTIC 1 EACH STRIP IN SCH ×4 (00:33→17:16)
--- NOTE | 2020-09-05 00:38 | NUR ---
RT Pt recv'd on ordered settings AC 16 300 40% +5 with 7.0 ETT, 21cm at lip. Pt asleep but can be aroused. Suction done PRN with small thick yellow secretions. Tx's given with no adverse reactions. No sign of respiratory distress noted. Vent plugged into red outlet with ambu bag at [facility]. Alarms on and audible.
[2020-09-05] MEDS: INSULIN REGULAR, HUMAN 100 UNIT/ML 3 ML VIAL SQ PRN ×2 (00:45→23:58)
--- NOTE | 2020-09-05 02:00 | NUR ---
POSTDOCTORAL RESEARCH FELLOW NOTES BED BATH DONE, WOUND CARE RENDERED PRESCRIBED. NOTED WITH MODERATE BM, MUCOID AND BROWN. WILL MONITOR CLOSELY
[2020-09-05] MEDS: IPRATROPIUM NEB FS 0.5 MG/2.5 ML AMPUL.NEB NEB SCH ×6 (03:25→23:43)
[2020-09-05] MEDS: ALBUTEROL FS 2.5 MG/0.5 ML VIAL.NEB NEB SCH ×6 (03:25→23:43)
[2020-09-05] MEDS: GLUCERNA 1.2 1,000 ML BOTTLE NG PRN (06:15)
--- NOTE | 2020-09-05 07:00 | NUR ---
GWOT IA/ILO INTELLIGENCE SUPPORT CLOSING NOTES PATIENT RESTING COMFORTABLY IN BED, NO ACUTE CHANGES THROUGHOUT SHIFT. REMAINS ON NEOSYNEPHRINE DRIP @ 1.9 MCG/KG/MIN. WILL ENDORSE THE PATIENT TO THE AM SHIFT NURSE FOR CONTINUITY OF CARE
--- NOTE | 2020-09-05 07:42 | NUR ---
RN OPENING NOTE: RECEIVED PATIENT IN BED THIS MORNING. PATIENT IS INTUBATED, LETHARGIC, UNABLE TO RESPOND TO STIMULI. CONTROLLED AFIB IN THE 80S NOTED ON THE BEDSIDE MONITOR. NGT RUNNING TF. GRAF DRAINING URINE. WOUND CARE PER ORDERS. RIJ C/D/I, FLUSHING WELL, NO SIGNS OF COMPLICATIONS NOTED. ON PRESSORS TO REGULATE BP. SAFETY MEASURES IMPLEMENTED, BED IN LOWEST POSITION, LOCKED, SIDE RAILS UP, CALL LIGHT WITHIN REACH. WILL CONTINUE TO MONITOR PATIENT FOR CHANGES.
[2020-09-05] MEDS: ASCORBIC ACID 500 MG TABLET PO SCH (08:25)
[2020-09-05] MEDS: METFORMIN 500 MG TABLET PO SCH ×2 (08:25→17:03)
[2020-09-05] MEDS: BRIMONIDINE TARTRATE OPHT SOLN 5 ML BOTTLE LEFTEYE SCH ×3 (08:25→17:03)
[2020-09-05] MEDS: MULTIVIT W/MINERALS 1 TAB TABLET PO SCH (08:25)
[2020-09-05] MEDS: SODIUM CHLORIDE 1000 MG TABLET PO SCH (08:25)
[2020-09-05] MEDS: POTASSIUM CHLORIDE 20 MEQ POWDER PACKET GT SCH (08:25)
[2020-09-05] MEDS: CALCIUM CARB 600MG /VIT D 1 EACH TABLET PO SCH (08:25)
[2020-09-05] MEDS: FERROUS SULFATE (325 MG) 325 MG/TAB TABLET PO SCH ×2 (08:25→17:03)
[2020-09-05] MEDS: FAMOTIDINE (20 MG) 20 MG TABLET GT SCH ×2 (08:25→20:03)
[2020-09-05] MEDS: CYANOCOBALAMIN 500 MCG TABLET PO SCH (08:25)
[2020-09-05] MEDS: TIMOLOL MAL/DORZOLAM HCL OPHTH 10 ML BOTTLE RIGHTEYE SCH ×2 (08:26→17:03)
[2020-09-05] MEDS: Z GUARD REMEDY 2 OZ OINT TP SCH ×2 (08:26→20:04)
[2020-09-05] MEDS: MEROPENEM 1 G in IV NS 0.9% 100 ML IV SCH ×2 (08:26→20:03)
[2020-09-05 08:34] LABS: ABG BASE EXCESS -9.7 mmol/L; ABG OXYGEN SATURATION 98.1 % (92.0-98.5); ABG PCO2 23.8 mmHg (35.0-45.0); ABG PH 7.387 (7.350-7.450); ABG PO2 102.8 mmHg (75.0-100.0); COHb 0.6 % (0.5-1.5); MetHb 0.3 % (0.0-1.5); O2Hb 97.2 % (94.0-97.0); SITE, ABG Right Radial; VENT MODE, BG AC 16 300 40% +5
[2020-09-05 09:34] LABS: BASOPHILS % (AUTO) 0.1 % (0.0-2.0); EOSINOPHILS % (AUTO) 0.1 % (0.0-6.0); HEMATOCRIT 34 % (33-45); HEMOGLOBIN 9.9 g/dL (11.5-14.8); LYMPHOCYTES # (AUTO) 0.4 /CMM (0.8-4.8); LYMPHOCYTES % (AUTO) 2.2 % (20.0-44.0); MEAN CORPUSCULAR HGB CONC 29 g/dl (31.0-36.0); MEAN CORPUSCULAR VOLUME 102 fL (82-100); MONOCYTES # (AUTO) 0.3 /CMM (0.1-1.30); MONOCYTES % (AUTO) 1.5 % (2.0-12.0); NEUTROPHILS # (AUTO) 17.7 /CMM (1.8-8.9); NEUTROPHILS % (AUTO) 96.1 % (43.0-81.0); PLATELET COUNT (AUTO) 56 /CMM (150-450); RED BLOOD CELL COUNT(AUTO) 3.34 MIL/uL (4.0-5.2); WHITE BLOOD COUNT (AUTO) 18.4 K/uL (4.3-11.0)
[2020-09-05 09:56] LABS: BILIRUBIN,TOTAL 0.5 mg/dL (0.2-1.0); CALCIUM, SERUM 7.5 mg/dL (8.5-10.1); MAGNESIUM 2.4 mg/dL (1.8-2.4); PHOSPHORUS 3.2 mg/dL (2.5-4.9); POTASSIUM 5.8 mmol/L (3.5-5.1)
--- NOTE | 2020-09-05 10:12 | NUR ---
INFORMED DR CRUZ OF PATIENT'S ALBUMIN OF 1.0
[2020-09-05] MEDS: EPOETIN ALFA (10,000 UNIT) 10,000 UNIT/ML VIAL IJ SCH (17:03)
[2020-09-05] MEDS ORDERED: SODIUM POLYSTYRENE SULFONATE 15 G/60 ML BOTTLE PO ONE (19:30)
--- NOTE | 2020-09-05 19:56 | NUR ---
PT REC'D ORALLY INTUBATED VIA ETT 7.0 SECURED @ 21 CM L[facility] WITH THE SETTINGS OF AC 16, 300,40%,PEEP 5. Q4 BREATHING TX GIVEN PER MD'S ORDER. NO ADVERSE REACTION NOTED, NO RESPIRATORY DISTRESS NOTED AT THIS TIME. SX DONE . ALARMS ARE SET AND AUDIBLE. VENT PLUGGED INTO RED OUTLET. AMBU BAG@ BEDSIDE. WILL CONTINUE TO MONITOR T/O THE SHIFT.
[2020-09-05] MEDS: DOXYCYCLINE HYCLATE (100 MG) 100 MG TABLET PO SCH (20:04)
[2020-09-05] MEDS: SENNOSIDES 8.6 MG TABLET PO SCH (21:02)
[2020-09-05] MEDS: ATORVASTATIN 40 MG TABLET PO SCH (21:03)
--- NOTE | 2020-09-05 22:31 | NUR ---
RN CLOSING NOTE: PATIENT REMAINS IN ROOM. NO SIGNS OF ACUTE DISTRESS NOTED AT THIS TIME. PATIENT IS STILL ON PRESSORS. SINUS TACHY IN THE 110S NOTED ON THE BEDSIDE MONITOR. SAFETY MEASURES IMPLEMENTED, BED IN LOWEST POSITION, LOCKED, SIDE RAILS UP, CALL LIGHT WITHIN REACH. WILL ENDORSE TO JUAN CUADRA FOR CONTINUITY OF CARE.
[2020-09-06] VITALS (88 sets, daily range): BP systolic 71–140; BP diastolic 15–75
[2020-09-06] MEDS: BLOOD SUGAR DIAGNOSTIC 1 EACH STRIP IN SCH ×4 (00:59→17:31)
--- NOTE | 2020-09-06 01:00 | NUR ---
SENIOR ENVIRONMENTAL PRACTICE LEADER. RECEIVED AT 2245.THE PT REST ON THE BED. ORALLY INTUBATED. ETT #7,AC 16,LIP 21, TV 300,FIO2 40%,PEEP 5. SAT 98%. BUILDING CLEANER SHOWING AFIB. IV RTIJ TRIPLE LUMEN. TWYLA 0.9NCG/KG/MIN,HOB ELEVATED. NGT INTACT. GLUCERNA 35ML/HFC PATENT. WILL CONTINUE TO MONITOR VITALS.
[2020-09-06] MEDS: ACETAMINOPHEN 650 MG/20.3 ML UDC NG PRN (02:24)
--- NOTE | 2020-09-06 02:24 | NUR ---
director nicu. temperature is 100. tylenol given per ordered
[2020-09-06] MEDS: IPRATROPIUM NEB FS 0.5 MG/2.5 ML AMPUL.NEB NEB SCH ×6 (03:08→23:28)
[2020-09-06] MEDS: ALBUTEROL FS 2.5 MG/0.5 ML VIAL.NEB NEB SCH ×6 (03:08→23:28)
[2020-09-06 04:58] LABS: BASOPHILS % (AUTO) 0.1 % (0.0-2.0); HEMATOCRIT 23 % (33-45); HEMOGLOBIN 7.1 g/dL (11.5-14.8); LYMPHOCYTES # (AUTO) 0.3 /CMM (0.8-4.8); LYMPHOCYTES % (AUTO) 1.6 % (20.0-44.0); MEAN CORPUSCULAR HGB CONC 31 g/dl (31.0-36.0); MEAN CORPUSCULAR VOLUME 98 fL (82-100); MONOCYTES # (AUTO) 0.2 /CMM (0.1-1.30); MONOCYTES % (AUTO) 1.2 % (2.0-12.0); NEUTROPHILS % (AUTO) 97.1 % (43.0-81.0); RED BLOOD CELL COUNT(AUTO) 2.36 MIL/uL (4.0-5.2); WHITE BLOOD COUNT (AUTO) 17.5 K/uL (4.3-11.0)
[2020-09-06 05:06] LABS: PLATELET COUNT (AUTO) 46 /CMM (150-450)
[2020-09-06 05:22] LABS: BILIRUBIN,TOTAL 0.3 mg/dL (0.2-1.0); CALCIUM, SERUM 7.7 mg/dL (8.5-10.1); CREATININE 1.2 mg/dL (0.6-1.3); MAGNESIUM 2.2 mg/dL (1.8-2.4); PHOSPHORUS 3.3 mg/dL (2.5-4.9); POTASSIUM 5.5 mmol/L (3.5-5.1); TOTAL PROTEIN, SERUM 4.6 g/dL (6.4-8.2)
--- NOTE | 2020-09-06 05:45 | NUR ---
multicultural services librarian. am care. oral care, bed bath given. linen changed. remaining same vent setting tolearted well. sat 98%.online editor showing, afib, fc patent. yonathan hand weeping. alejo 2.1mcg/kg/min. hob elevated, fc patent. ngt feeding tolerated well. hob elevated, turn and reposition q2h. will continue to monitor vitals.
[2020-09-06 06:25] LABS: LYMPHOCYTES % (MANUAL) 1 % (16-48); MONOCYTES % (MANUAL) 1 % (0-11.0); NEUTROPHILS % (MANUAL) 98 (42-76)
[2020-09-06] MEDS: INSULIN REGULAR, HUMAN 100 UNIT/ML 3 ML VIAL SQ PRN ×2 (06:37→11:13)
[2020-09-06] MEDS: SODIUM CHLORIDE 1000 MG TABLET PO SCH (08:18)
[2020-09-06] MEDS: FERROUS SULFATE (325 MG) 325 MG/TAB TABLET PO SCH ×2 (08:18→17:17)
[2020-09-06] MEDS: MULTIVIT W/MINERALS 1 TAB TABLET PO SCH (08:19)
[2020-09-06] MEDS: ASCORBIC ACID 500 MG TABLET PO SCH (08:19)
[2020-09-06] MEDS: FAMOTIDINE (20 MG) 20 MG TABLET GT SCH ×2 (08:19→20:16)
[2020-09-06] MEDS: METFORMIN 500 MG TABLET PO SCH ×2 (08:19→17:17)
[2020-09-06] MEDS: MEROPENEM 1 G in IV NS 0.9% 100 ML IV SCH ×2 (08:19→20:16)
[2020-09-06] MEDS: CYANOCOBALAMIN 500 MCG TABLET PO SCH (08:19)
[2020-09-06] MEDS: DOXYCYCLINE HYCLATE (100 MG) 100 MG TABLET PO SCH ×2 (08:19→20:16)
[2020-09-06] MEDS: CALCIUM CARB 600MG /VIT D 1 EACH TABLET PO SCH (08:19)
[2020-09-06] MEDS: PHENYLEPHRINE 50 MG in IV NS 0.9% 245 ML IV PRN ×2 (08:21→20:08)
[2020-09-06] MEDS: TIMOLOL MAL/DORZOLAM HCL OPHTH 10 ML BOTTLE RIGHTEYE SCH ×2 (08:22→17:18)
[2020-09-06] MEDS: BRIMONIDINE TARTRATE OPHT SOLN 5 ML BOTTLE LEFTEYE SCH ×3 (08:22→17:18)
[2020-09-06] MEDS: Z GUARD REMEDY 2 OZ OINT TP SCH ×2 (08:22→20:16)
[2020-09-06 08:56] LABS: ABG BASE EXCESS 8.9 mmol/L; ABG OXYGEN SATURATION 89.5 % (92.0-98.5); ABG PCO2 42.2 mmHg (35.0-45.0); ABG PH 7.509 (7.350-7.450); ABG PO2 55.7 mmHg (75.0-100.0); AaDO2 542.8 mmHg; MetHb 0.3 % (0.0-1.5); O2Hb 88.3 % (94.0-97.0); PEEP,BG 8 cm H2O; SITE, ABG Right Radial; VENT MODE, BG AC 90%; VT, ABG 450 mL
--- NOTE | 2020-09-06 11:28 | NUR ---
IN PATIENT'S CHART, FLAQUITA CHILDS IS THE RP. TRIED CONTACTING THE NUMBER AND DOES NOT GO THROUGH. FAMILY CONTACTED UNIT AND PER FAMILY, MARY ALICE SAMS (SON) IS THE RP . NOTIFIED SS AND ADMITTING TO UPDATE CHART.
--- NOTE | 2020-09-06 12:04 | NUR ---
GUILLE received a call from JUAN Parekh regarding patient's change of next of kin. JUAN Parekh provided this SW information for patient's son Lonny Galaviz . GUILLE will provide this information to [facility] Admitting team ([phone] to make this change to patient's medical chart. GUILLE remains available for all needs regarding this patient.
[2020-09-06] MEDS ORDERED: PHENYLEPHRINE 100 MG in IV NS 0.9% 240 ML IV PRN (12:30)
[2020-09-06] MEDS: GLUCERNA 1.2 1,000 ML BOTTLE NG PRN (15:58)
--- NOTE | 2020-09-06 18:18 | NUR ---
STAT LOCK FOR NG TUBE WAS STARTING TO GET LOOSE. REPLACED AND PLACED NEW ONE. AUSCULTATED FOR PLACEMENT.
--- NOTE | 2020-09-06 19:33 | NUR ---
URINE CULTURE COLLECTED AND PICKED UP BY LAB
[2020-09-06] MEDS: ATORVASTATIN 40 MG TABLET PO SCH (21:31)
[2020-09-06] MEDS: SENNOSIDES 8.6 MG TABLET PO SCH (21:31)
--- NOTE | 2020-09-06 22:34 | NUR ---
RN CLOSING NOTE: PATIENT REMAINS IN ROOM. NO SIGNS OF ACUTE DISTRESS NOTED AT THIS TIME. PATIENT IS STILL ON PRESSORS. IN AND OUT OF AFIB, CURRENTLY SINUS TACHY IN THE 100S NOTED ON THE BEDSIDE MONITOR. SAFETY MEASURES IMPLEMENTED, BED IN LOWEST POSITION, LOCKED, SIDE RAILS UP, CALL LIGHT WITHIN REACH. WILL ENDORSE TO ONCOMING SHIFT RN FOR CONTINUITY OF CARE.
--- NOTE | 2020-09-06 23:20 | NUR ---
TITLE I MATH TUTOR OPENING NOTES RECEIVED PT AT 2310 PT IS CURRENTLY ORALLY INTUBATED. ETT #7 AC 16, 21 AT THE LIP, VENT SETTINGS AC 16 TV 300 FIO2 40% PEEP OF 5. PT IS NOT IN ANY RESP DISTRESS AT THIS TIME. BREATHING IS EVEN UNLABORED. HOME AID SHOWING SINUS TACHY AT THIS TIME. HR OF 107 BASELINE TO PT. IV SITE RIJ, TRIPLE LUMEN. PT HAS WEEPING EDEMA ON ALL EXTREMITIES. AND BKA LEFT SIDE. PT HAS GRAF CATHETER DRAINING ISRAEL URINE FREE OF SEDIMENT. TWYLA AT 1.5 MCG/KG/MIN. NGT TUBE FEEDING RUNNING AT 35CC/HR. RESIDUAL OF LESS THAN 5 NOTED. NGT AUSCULTATED TO CONFIRM PLACEMENT AND PATENCY. SAFETY MEASURES IN PLACE. HOB ELEVATED. SIDE RAILS UP X2. BED LOCKED IN LOWEST POSITION. WILL CONTINUE TO MONITOR. CLOSELY.
[2020-09-07] VITALS (86 sets, daily range): BP systolic 86–136; BP diastolic 43–100
[2020-09-07] MEDS: BLOOD SUGAR DIAGNOSTIC 1 EACH STRIP IN SCH ×4 (00:21→17:22)
[2020-09-07] MEDS: INSULIN REGULAR, HUMAN 100 UNIT/ML 3 ML VIAL SQ PRN ×3 (00:33→18:24)
[2020-09-07 00:44] LABS: OCCULT BLOOD STOOL POSITIVE (NEGATIVE)
[2020-09-07] MEDS: IPRATROPIUM NEB FS 0.5 MG/2.5 ML AMPUL.NEB NEB SCH ×6 (03:26→23:24)
[2020-09-07] MEDS: ALBUTEROL FS 2.5 MG/0.5 ML VIAL.NEB NEB SCH ×6 (03:26→23:24)
--- NOTE | 2020-09-07 03:26 | NUR ---
BED BATH AND COMPLETE LINEN CHANGE DONE. WOUND CARE PERFORMED ORDERED. PT HAD 2 SMALL-MODERATE MUCOID GREEN BOWEL MOVEMENTS
[2020-09-07 04:58] LABS: BASOPHILS # (AUTO) 0.1 /CMM (0.0-0.2); BASOPHILS % (AUTO) 0.3 % (0.0-2.0); HEMATOCRIT 21 % (33-45); LYMPHOCYTES # (AUTO) 0.3 /CMM (0.8-4.8); LYMPHOCYTES % (AUTO) 1.4 % (20.0-44.0); MEAN CORPUSCULAR HGB CONC 31 g/dl (31.0-36.0); MEAN CORPUSCULAR VOLUME 97 fL (82-100); MONOCYTES # (AUTO) 0.3 /CMM (0.1-1.30); MONOCYTES % (AUTO) 1.5 % (2.0-12.0); NEUTROPHILS # (AUTO) 18.4 /CMM (1.8-8.9); NEUTROPHILS % (AUTO) 96.8 % (43.0-81.0); RED BLOOD CELL COUNT(AUTO) 2.21 MIL/uL (4.0-5.2)
[2020-09-07 05:09] LABS: HEMOGLOBIN 6.7 g/dL (11.5-14.8); PLATELET COUNT (AUTO) 39 /CMM (150-450)
[2020-09-07 05:18] LABS: CALCIUM, SERUM 7.6 mg/dL (8.5-10.1); CARBON DIOXIDE 19 mmol/L (21-32); CHLORIDE 116 mmol/L (98-107); CREATININE 1.2 mg/dL (0.6-1.3); GLUCOSE 164 mg/dL (74-106); MAGNESIUM 2.2 mg/dL (1.8-2.4); PHOSPHORUS 3.3 mg/dL (2.5-4.9); POTASSIUM 5.2 mmol/L (3.5-5.1); SODIUM SERUM 143 mmol/L (136-145); UREA NITROGEN, BLOOD 37 mg/dL (7-18)
--- NOTE | 2020-09-07 05:43 | NUR ---
CRITICAL LAB FOR PT HGB 6.7 AND PLT 39. FOREIGN FOOD COOK SPECIALTY MADE AWARE. ORDERS FOR 1 UNIT PRBCS AT THIS TIME.
[2020-09-07 06:35] LABS: LYMPHOCYTES % (MANUAL) 2 % (16-48); MONOCYTES % (MANUAL) 2 % (0-11.0); NEUTROPHILS % (MANUAL) 96 (42-76)
--- NOTE | 2020-09-07 06:37 | NUR ---
CALLED FOR CONSENT FOR BLOOD FROM THE DAUGHTER LISTED ON FACE SHEET, UNABLE TO SPEAK WITH HER. LEFT MESSAGE.
--- NOTE | 2020-09-07 06:38 | NUR ---
CLOSING NOTE PT IS CURRENTLY RESTING WELL IN BED. NO SIGNIFICANT CHANGES THROUGHOUT MY SHIFT. PT IS CURRENTLY NSR-NST HEART RATE 98-101 AT THIS TIME. PT IS NOT EXPERIENCING ANY SOB OR RESP DISTRESS. TOLERATING VENT SETTINGS ORDERED. TYPE AND SCREEN DONE. PRBCS ORDERED. STILL NEED CONSENT. TWYLA AT 0.5 MCG SBP KEPT WITHIN ORDERED PARAMETERS >90 SBP. SAFETY MEASURES IN PLACE. HOB ELEVATED. SIDE RAILS UP X2. BED LOCKED IN LOWEST POSITION. WILL ENDORSE TO AM NURSE FOR CONTINUATION OF CARE.
--- NOTE | 2020-09-07 07:30 | NUR ---
RECEIVED PATIENT IN BED. NO ACUTE DISTRESS NOTED. PATIENT ALERT & ORIENTED X0, OPENS EYES. PATIENT INTUBATED, TOLERATING VENT SETTINGS WELL. PATIENT ON CHIP SEPARATOR, SINUS TACHYCARDIA NOTED WITH HISTORY OF A. FIB. PATIENT NGT IN PLACE, INTACT, PATENT. PATIENT GRAF CATHETER IN PLACE, INTACT, DRAINING TO GRAVITY. PATIENT RIGHT IJ TLC IN PLACE, INTACT, PATENT, FLUSHED WELL. PER LAB AND EXCAVATION LABORER, PATIENT IN NEED OF BLOOD TRANSFUSION. NO CONSENT IN CHART, WILL CALL FAMILY FOR CONSENT. PATIENT SAFETY MEASURES MAINTAINED. WILL CONTINUE TO MONITOR.
[2020-09-07] MEDS: FAMOTIDINE (20 MG) 20 MG TABLET GT SCH ×2 (08:42→21:04)
[2020-09-07] MEDS: FERROUS SULFATE (325 MG) 325 MG/TAB TABLET PO SCH ×2 (08:43→17:21)
[2020-09-07] MEDS: METFORMIN 500 MG TABLET PO SCH ×2 (08:43→17:21)
[2020-09-07] MEDS: ASCORBIC ACID 500 MG TABLET PO SCH (08:43)
[2020-09-07] MEDS: CYANOCOBALAMIN 500 MCG TABLET PO SCH (08:43)
[2020-09-07] MEDS: MULTIVIT W/MINERALS 1 TAB TABLET PO SCH (08:43)
[2020-09-07] MEDS: SODIUM CHLORIDE 1000 MG TABLET PO SCH (08:43)
[2020-09-07] MEDS: CALCIUM CARB 600MG /VIT D 1 EACH TABLET PO SCH (08:43)
[2020-09-07] MEDS: MEROPENEM 1 G in IV NS 0.9% 100 ML IV SCH ×2 (08:43→20:45)
[2020-09-07] MEDS: DOXYCYCLINE HYCLATE (100 MG) 100 MG TABLET PO SCH ×2 (08:43→21:04)
[2020-09-07] MEDS: Z GUARD REMEDY 2 OZ OINT TP SCH ×2 (08:44→21:04)
[2020-09-07] MEDS: BRIMONIDINE TARTRATE OPHT SOLN 5 ML BOTTLE LEFTEYE SCH ×3 (08:44→17:23)
[2020-09-07] MEDS: TIMOLOL MAL/DORZOLAM HCL OPHTH 10 ML BOTTLE RIGHTEYE SCH ×2 (08:44→17:22)
[2020-09-07] MEDS ORDERED: SODIUM POLYSTYRENE SULFONATE 15 G/60 ML BOTTLE PO ONE (10:30)
--- NOTE | 2020-09-07 13:30 | NUR ---
PATIENT HGB 6.7. DR. CRUZ NOTIFIED, ORDERED 1 UNIT PRBC.
--- NOTE | 2020-09-07 16:00 | NUR ---
1 UNIT PRBC ADMINISTERED ORDERED. NO ACUTE DISTRESS NOTED, PATIENT IN STABLE CONDITION, VITAL SIGNS STABLE. WILL CONTINUE TO MONITOR.
--- NOTE | 2020-09-07 18:40 | NUR ---
PATIENT IN BED. NO ACUTE DISTRESS NOTED. PATIENT ALERT & ORIENTED X0, OPENS EYES. PATIENT INTUBATED, TOLERATING VENT SETTINGS WELL. PATIENT ON CONCESSION CASHIER, SINUS TACHYCARDIA NOTED WITH HISTORY OF A. FIB. PATIENT NGT IN PLACE, INTACT, PATENT. PATIENT GRAF CATHETER IN PLACE, INTACT, DRAINING TO GRAVITY. PATIENT RIGHT IJ TLC IN PLACE, INTACT, PATENT, FLUSHED WELL. PATIENT SAFETY MEASURES MAINTAINED. WILL ENDORSE PLAN OF CARE TO ONCOMING SHIFT FOR CONTINUITY OF CARE
--- NOTE | 2020-09-07 19:25 | NUR ---
ICU/USPS LETTER CARRIER RECEIVED REPORT FROM DAY NURSE. SEE FLOWSHEET FOR ASSESSMENT,THERE ARE A FEW SKIN ISSUES THAT ARE ADDRESSED. PT IS LETHARGIC. PT HAS LEFT NARE N/G TUBE FOR FEEDING. PT IS ORALLY INTUBATED, TOLERATING CURRENT VENT SETTINGS WITH SATURATION AT 100%. GRAF CATH DRAINING SMALL AMOUNT OF DARK YELLOW URINE. TOLERATING CURRENT VENT. PT WAS TURN AND REPOSITION FOR COMFORT AND CARE. WILL CONTINUE TO MONITOR THIS PT, NO ACUTE DISTRESS SEEN AT THIS
[2020-09-07] MEDS: SENNOSIDES 8.6 MG TABLET PO SCH (21:04)
[2020-09-07] MEDS: ATORVASTATIN 40 MG TABLET PO SCH (21:04)
--- NOTE | 2020-09-07 22:30 | NUR ---
ICU/APPLIANCE TESTER PT WAS GIVEN ORAL CARE. THEN GIVEN PROVIDED PM CARE, WHICH SHE TOLERATED WELL. PT REMAINS ON CURRENT VENT SETTING WITH SATURATION AT 100%. PT WAS TURNED AND REPOSITIONED FOR COMFORT AND CARE. NO ACUTE DISTRESS SEEN. WILL CONTINUE TO MONITOR THIS PT.
[2020-09-08] VITALS (31 sets, daily range): BP systolic 67–106; BP diastolic 37–74
--- NOTE | 2020-09-08 00:10 | NUR ---
ICU/SEARCH ADVERTISING STRATEGIST PT'S MIDNIGHT BLOOD SUGAR IS 125, THERE IS NO COVERAGE FOR THIS PER SLIDING SCALE ORDERED BY MD. WILL CONTINUE TO CLOSELY THIS PT'S SUGAR ORDERED BY MD AND HOSPITAL PROTOCOL. PT WAS TURNED AND REPOSTIONED FOR COMFORT AND CARE.
--- NOTE | 2020-09-08 01:56 | NUR ---
ICU/LANDSCAPE FOREMAN PT'S SKIN BREAKDOWN IS VERY BAD TO THE BUTTOCKS AND ARTHUR AREA AROUND, PLACED A CALL TO THE WIRE COATING OPERATOR METAL ISAAC TO GET AN ORDER FOR FLEXISEAL. THIS ORDER WAS OBTAINED AND PLACED IN PT. WILL CONTINUE TO MONITOR THIS PT AND HER SKIN.
--- NOTE | 2020-09-08 03:17 | NUR ---
RT NOTE Pt received intubated and on [facility] vent w ordered settings. Vent is plugged into red outlet. Alarms are set and audible w bmv @ hob. Airway is patent and secure. No resp distress noted t/o shift. Will continue to monitor. Addendum: 09/08/20 at 0319 by SYDNEE HERMAN RT Amended: Links added.
[2020-09-08] MEDS: IPRATROPIUM NEB FS 0.5 MG/2.5 ML AMPUL.NEB NEB SCH ×6 (03:25→23:58)
[2020-09-08] MEDS: ALBUTEROL FS 2.5 MG/0.5 ML VIAL.NEB NEB SCH ×6 (03:25→23:58)
[2020-09-08 05:34] LABS: BASOPHILS % (AUTO) 0.2 % (0.0-2.0); EOSINOPHILS % (AUTO) 0.1 % (0.0-6.0); HEMATOCRIT 26 % (33-45); HEMOGLOBIN 8.2 g/dL (11.5-14.8); LYMPHOCYTES # (AUTO) 0.3 /CMM (0.8-4.8); LYMPHOCYTES % (AUTO) 1.9 % (20.0-44.0); MEAN CORPUSCULAR HGB CONC 32 g/dl (31.0-36.0); MEAN CORPUSCULAR VOLUME 95 fL (82-100); MONOCYTES # (AUTO) 0.3 /CMM (0.1-1.30); MONOCYTES % (AUTO) 1.8 % (2.0-12.0); NEUTROPHILS # (AUTO) 14.6 /CMM (1.8-8.9); WHITE BLOOD COUNT (AUTO) 15.3 K/uL (4.3-11.0)
[2020-09-08] MEDS: BLOOD SUGAR DIAGNOSTIC 1 EACH STRIP IN SCH ×4 (05:35→18:36)
[2020-09-08 05:38] LABS: PLATELET COUNT (AUTO) 40 /CMM (150-450)
[2020-09-08 06:02] LABS: CALCIUM, SERUM 7.6 mg/dL (8.5-10.1); CREATININE 1.1 mg/dL (0.6-1.3); MAGNESIUM 2.2 mg/dL (1.8-2.4); PHOSPHORUS 3.5 mg/dL (2.5-4.9); POTASSIUM 3.9 mmol/L (3.5-5.1)
[2020-09-08] MEDS: DOXYCYCLINE HYCLATE (100 MG) 100 MG TABLET PO SCH ×2 (08:25→20:42)
[2020-09-08] MEDS: CALCIUM CARB 600MG /VIT D 1 EACH TABLET PO SCH (08:26)
[2020-09-08] MEDS: MULTIVIT W/MINERALS 1 TAB TABLET PO SCH (08:26)
[2020-09-08] MEDS: MEROPENEM 1 G in IV NS 0.9% 100 ML IV SCH ×2 (08:26→20:20)
[2020-09-08] MEDS: METFORMIN 500 MG TABLET PO SCH ×2 (08:26→18:07)
[2020-09-08] MEDS: SODIUM CHLORIDE 1000 MG TABLET PO SCH (08:26)
[2020-09-08] MEDS: FAMOTIDINE (20 MG) 20 MG TABLET GT SCH ×2 (08:26→20:42)
[2020-09-08] MEDS: FERROUS SULFATE (325 MG) 325 MG/TAB TABLET PO SCH ×2 (08:26→18:07)
[2020-09-08] MEDS: ASCORBIC ACID 500 MG TABLET PO SCH (08:26)
[2020-09-08] MEDS: CYANOCOBALAMIN 500 MCG TABLET PO SCH (08:47)
[2020-09-08] MEDS ORDERED: IV NS 0.9% 1,000 ML IV PRN (09:00)
[2020-09-08] MEDS: TIMOLOL MAL/DORZOLAM HCL OPHTH 10 ML BOTTLE RIGHTEYE SCH ×2 (10:07→18:08)
[2020-09-08] MEDS: BRIMONIDINE TARTRATE OPHT SOLN 5 ML BOTTLE LEFTEYE SCH ×3 (10:07→18:08)
[2020-09-08] MEDS: Z GUARD REMEDY 2 OZ OINT TP SCH ×2 (10:08→20:43)
[2020-09-08] MEDS: INSULIN REGULAR, HUMAN 100 UNIT/ML 3 ML VIAL SQ PRN ×2 (12:55→18:39)
[2020-09-08] MEDS: IV 1/2NS 1000 ML 1,000 ML IV PRN (13:51)
[2020-09-08] MEDS: PHENYLEPHRINE 50 MG in IV NS 0.9% 245 ML IV PRN (17:53)
--- NOTE | 2020-09-08 20:30 | NUR ---
ICU/CSM CONSULTANT UPON ASSESSMENT FOUND SKIN BREAKDOWN TO RIGHT EAR AND CHEST. THESE WERE PROPERLY DOCUMENTED AND PHOTO DOCUMENTATION WAS DONE. WILL CONTINUE TO MONITOR THIS PT AND HER SKIN.
[2020-09-08] MEDS: SENNOSIDES 8.6 MG TABLET PO SCH (20:43)
[2020-09-09] VITALS (58 sets, daily range): BP systolic 87–133; BP diastolic 44–75
[2020-09-09] MEDS: BLOOD SUGAR DIAGNOSTIC 1 EACH STRIP IN SCH ×5 (00:42→23:59)
[2020-09-09] MEDS: INSULIN REGULAR, HUMAN 100 UNIT/ML 3 ML VIAL SQ PRN ×2 (00:54→17:46)
[2020-09-09] MEDS: IPRATROPIUM NEB FS 0.5 MG/2.5 ML AMPUL.NEB NEB SCH ×6 (03:12→23:14)
[2020-09-09] MEDS: ALBUTEROL FS 2.5 MG/0.5 ML VIAL.NEB NEB SCH ×6 (03:12→23:14)
[2020-09-09 05:14] LABS: BASOPHILS % (AUTO) 0.3 % (0.0-2.0); EOSINOPHILS % (AUTO) 0.1 % (0.0-6.0); HEMATOCRIT 27 % (33-45); HEMOGLOBIN 8.6 g/dL (11.5-14.8); LYMPHOCYTES # (AUTO) 0.3 /CMM (0.8-4.8); MEAN CORPUSCULAR HGB CONC 32 g/dl (31.0-36.0); MEAN CORPUSCULAR VOLUME 95 fL (82-100); MONOCYTES # (AUTO) 0.4 /CMM (0.1-1.30); MONOCYTES % (AUTO) 2.9 % (2.0-12.0); NEUTROPHILS # (AUTO) 13.9 /CMM (1.8-8.9); NEUTROPHILS % (AUTO) 94.7 % (43.0-81.0); PLATELET COUNT (AUTO) 52 /CMM (150-450); RED BLOOD CELL COUNT(AUTO) 2.84 MIL/uL (4.0-5.2); WHITE BLOOD COUNT (AUTO) 14.6 K/uL (4.3-11.0)
[2020-09-09 05:33] LABS: MAGNESIUM 2.1 mg/dL (1.8-2.4); PHOSPHORUS 3.3 mg/dL (2.5-4.9); POTASSIUM 3.2 mmol/L (3.5-5.1)
--- NOTE | 2020-09-09 07:08 | NUR ---
RN NOTES RECEIVED PATIENT IN BED RESTING COMFORTABLY IN MODERATE HIGH BACK REST. NO ACUTE DISTRESS NOTED AT THIS TIME. PATIENT ALERT, OPENS EYES, PATIENT INTUBATED, TOLERATING VENT SETTINGS WELL. PATIENT ON OPHTHALMIC TECHNICIAN, SINUS TACHYCARDIA NOTED WITH HISTORY OF AFIB. PATIENT NGT IN PLACE, INTACT, PATENT. PATIENT GRAF CATHETER IN PLACE, INTACT, DRAINING TO GRAVITY. PATIENT RIGHT IJ TLC IN PLACE, INTACT, PATENT, FLUSHED WELL. PATIENT SAFETY MEASURES MAINTAINED. WILL CONTINUE TO MONITOR.
[2020-09-09] MEDS: IV 1/2NS 1000 ML 1,000 ML IV PRN (07:29)
[2020-09-09] MEDS: GLUCERNA 1.2 1,000 ML BOTTLE NG PRN (07:29)
[2020-09-09] MEDS: POTASSIUM CL. PREMIX PERIPHER. 50 ML IV SCH ×4 (08:12→12:31)
[2020-09-09] MEDS: ASCORBIC ACID 500 MG TABLET PO SCH (08:42)
[2020-09-09] MEDS: MULTIVIT W/MINERALS 1 TAB TABLET PO SCH (08:42)
[2020-09-09] MEDS: SODIUM CHLORIDE 1000 MG TABLET PO SCH (08:42)
[2020-09-09] MEDS: FERROUS SULFATE (325 MG) 325 MG/TAB TABLET PO SCH ×2 (08:43→16:47)
[2020-09-09] MEDS: METFORMIN 500 MG TABLET PO SCH ×2 (08:43→16:47)
[2020-09-09] MEDS: DOXYCYCLINE HYCLATE (100 MG) 100 MG TABLET PO SCH ×2 (08:43→21:05)
[2020-09-09] MEDS: FAMOTIDINE (20 MG) 20 MG TABLET GT SCH ×2 (08:43→21:05)
[2020-09-09] MEDS: CALCIUM CARB 600MG /VIT D 1 EACH TABLET PO SCH (08:43)
[2020-09-09] MEDS: CYANOCOBALAMIN 500 MCG TABLET PO SCH (08:43)
[2020-09-09] MEDS: MEROPENEM 1 G in IV NS 0.9% 100 ML IV SCH ×2 (09:13→20:35)
[2020-09-09] MEDS: BRIMONIDINE TARTRATE OPHT SOLN 5 ML BOTTLE LEFTEYE SCH ×3 (09:35→16:48)
[2020-09-09] MEDS: TIMOLOL MAL/DORZOLAM HCL OPHTH 10 ML BOTTLE RIGHTEYE SCH ×2 (09:35→16:48)
[2020-09-09] MEDS: Z GUARD REMEDY 2 OZ OINT TP SCH ×2 (09:36→21:06)
[2020-09-09] MEDS: ERGOCALCIFEROL (VITAMIN D 2) 50,000 UNIT CAPSULE PO SCH (17:03)
--- NOTE | 2020-09-09 17:53 | NUR ---
RT NOTE Pt received intubated and on [facility] vent w ordered settings. Vent is plugged into red outlet. Alarms are set and audible w bmv @ hob. Ett is secure and patent. No resp distress noted t/o shift. Will continue to monitor. Addendum: 09/09/20 at 1820 by SYDNEE HERMAN RT Amended: Links added.
[2020-09-09] MEDS: PHENYLEPHRINE 50 MG in IV NS 0.9% 245 ML IV PRN (18:36)
--- NOTE | 2020-09-09 19:01 | NUR ---
RN NOTES PATIENT IN BED RESTING COMFORTABLY IN MODERATE HIGH BACK REST. NO ACUTE DISTRESS NOTED. PATIENT ALERT, OPENS EYES, PATIENT INTUBATED, TOLERATING VENT SETTINGS WELL. PATIENT ON MODERN AND CONTEMPORARY ART CURATOR, SINUS TACHYCARDIA NOTED WITH HISTORY OF AFIB. PATIENT NGT IN PLACE, INTACT, PATENT. PATIENT GRAF CATHETER IN PLACE, INTACT, DRAINING TO GRAVITY. PATIENT RIGHT IJ TLC IN PLACE, INTACT, PATENT, FLUSHED WELL. PATIENT SAFETY MEASURES MAINTAINED. WILL ENDORSE TO CREAM MAKER NURSE FOR ADAM.
--- NOTE | 2020-09-09 19:10 | NUR ---
WEB SITE MANAGER OPENING NOTES: Rec'd pt in bed, A&Ox1, opens eyes. On mechanical ventilation, tolerating settings well. No SOB or resp distress noted. Breathing even and unlabored. SR on tele monitor. Left NGT in place w/ Glucerna infusing at 35ml/hr. Tolerating feeding well. Minimal residual noted. Right IJ TLC in place with Delio infusing at 0.5mcg/kg/min. Will titrate per protocol. Flexiseal in place. Garcia catheter in place, patent and draining urine via gravity. Safety measures in place. Will continue to monitor.
--- NOTE | 2020-09-09 21:00 | NUR ---
Received patient intubated on vent AC 16 300 40% +5. On ET tube 7.0 20cm @ lip. Ambu bag at bedside. Vent plugged into red outlet. No signs of respiratory distress noted. Suctioned moderate amounts of thick yellow secretions. Will continue to monitor. Addendum: 09/09/20 at 2103 by HAM SMALLS RT Amended: Links added.
[2020-09-09] MEDS: SENNOSIDES 8.6 MG TABLET PO SCH (21:05)
[2020-09-10] VITALS (62 sets, daily range): BP systolic 70–131; BP diastolic 46–77
[2020-09-10] MEDS: INSULIN REGULAR, HUMAN 100 UNIT/ML 3 ML VIAL SQ PRN ×3 (00:02→23:35)
[2020-09-10] MEDS: IV 1/2NS 1000 ML 1,000 ML IV PRN ×2 (00:15→17:03)
[2020-09-10] MEDS: IPRATROPIUM NEB FS 0.5 MG/2.5 ML AMPUL.NEB NEB SCH ×5 (03:17→20:21)
[2020-09-10] MEDS: ALBUTEROL FS 2.5 MG/0.5 ML VIAL.NEB NEB SCH ×5 (03:17→20:21)
[2020-09-10 03:55] LABS: BASOPHILS % (AUTO) 0.2 % (0.0-2.0); EOSINOPHILS % (AUTO) 0.2 % (0.0-6.0); HEMATOCRIT 28 % (33-45); HEMOGLOBIN 8.8 g/dL (11.5-14.8); LYMPHOCYTES # (AUTO) 0.3 /CMM (0.8-4.8); LYMPHOCYTES % (AUTO) 2.3 % (20.0-44.0); MEAN CORPUSCULAR HGB CONC 31 g/dl (31.0-36.0); MEAN CORPUSCULAR VOLUME 95 fL (82-100); MONOCYTES # (AUTO) 0.3 /CMM (0.1-1.30); MONOCYTES % (AUTO) 2.6 % (2.0-12.0); NEUTROPHILS # (AUTO) 10.9 /CMM (1.8-8.9); NEUTROPHILS % (AUTO) 94.7 % (43.0-81.0); PLATELET COUNT (AUTO) 57 /CMM (150-450); RED BLOOD CELL COUNT(AUTO) 2.94 MIL/uL (4.0-5.2); WHITE BLOOD COUNT (AUTO) 11.5 K/uL (4.3-11.0)
[2020-09-10 04:11] LABS: CALCIUM, SERUM 7.6 mg/dL (8.5-10.1); MAGNESIUM 1.9 mg/dL (1.8-2.4); PHOSPHORUS 3.2 mg/dL (2.5-4.9)
[2020-09-10] MEDS: BLOOD SUGAR DIAGNOSTIC 1 EACH STRIP IN SCH ×4 (05:36→23:33)
--- NOTE | 2020-09-10 06:58 | NUR ---
PORTABLE GRINDING MACHINE OPERATOR CLOSING NOTES: No acute changes noted. Pt remains intubated on mechanical ventilation tolerating well. SR on tele monitor. Left NGT in place w/ Glucerna infusing at 35ml/hr. Right IJ TLC in place. w/ Delio running at 0.5mcg/kg/min and 1/2NS at 75ml/hr. Garcia catheter in place patent and draining urine via gravity. Flexiseal in place. Kept clean/dry. All due meds given as ordered. Safety measures in place. Will endorse to oncoming nurse for ADAM.
--- NOTE | 2020-09-10 07:10 | NUR ---
RN NOTES RECEIVED PATIENT IN BED RESTING COMFORTABLY IN MODERATE HIGH BACK REST. NO ACUTE DISTRESS NOTED AT THIS TIME. PATIENT ALERT, OPENS EYES, PATIENT INTUBATED, TOLERATING VENT SETTINGS WELL. PATIENT ON VIDEO SPECIALIST, SR NOTED WITH HISTORY OF AFIB. PATIENT NGT IN PLACE, INTACT, PATENT. PATIENT GRAF CATHETER IN PLACE, INTACT, DRAINING TO GRAVITY. PATIENT RIGHT IJ TLC IN PLACE, INTACT, PATENT, FLUSHED WELL. PATIENT SAFETY MEASURES MAINTAINED. WILL CONTINUE TO MONITOR.
[2020-09-10] MEDS: GLUCERNA 1.2 1,000 ML BOTTLE NG PRN (07:28)
[2020-09-10] MEDS: MEROPENEM 1 G in IV NS 0.9% 100 ML IV SCH ×2 (08:18→21:00)
[2020-09-10] MEDS ORDERED: IV NS 0.9% 500 ML IV ONE (08:30)
[2020-09-10] MEDS: CALCIUM CARB 600MG /VIT D 1 EACH TABLET PO SCH (08:54)
[2020-09-10] MEDS: DOXYCYCLINE HYCLATE (100 MG) 100 MG TABLET PO SCH ×2 (08:55→20:58)
[2020-09-10] MEDS: FERROUS SULFATE (325 MG) 325 MG/TAB TABLET PO SCH ×2 (08:55→16:49)
[2020-09-10] MEDS: MULTIVIT W/MINERALS 1 TAB TABLET PO SCH (08:55)
[2020-09-10] MEDS: SODIUM CHLORIDE 1000 MG TABLET PO SCH (08:55)
[2020-09-10] MEDS: ASCORBIC ACID 500 MG TABLET PO SCH (08:55)
[2020-09-10] MEDS: FAMOTIDINE (20 MG) 20 MG TABLET GT SCH ×2 (08:55→20:57)
[2020-09-10] MEDS: METFORMIN 500 MG TABLET PO SCH ×2 (08:55→16:49)
[2020-09-10] MEDS: CYANOCOBALAMIN 500 MCG TABLET PO SCH (08:55)
[2020-09-10] MEDS: Z GUARD REMEDY 2 OZ OINT TP SCH ×2 (09:41→20:58)
[2020-09-10] MEDS: BRIMONIDINE TARTRATE OPHT SOLN 5 ML BOTTLE LEFTEYE SCH ×3 (09:41→16:50)
[2020-09-10] MEDS: TIMOLOL MAL/DORZOLAM HCL OPHTH 10 ML BOTTLE RIGHTEYE SCH ×2 (09:41→16:50)
--- NOTE | 2020-09-10 10:00 | NUR ---
RN NOTES SEEN AND EXAMINED BY DR. HONG WITH ORDERS TO GIVE 500 ML OF NS BOLUS, ORDER MADE AND CARRIED OUT, WILL CONTINUE TO MONITOR.
--- NOTE | 2020-09-10 18:23 | NUR ---
RN NOTES PATIENT IN BED RESTING COMFORTABLY IN MODERATE HIGH BACK REST. NO ACUTE DISTRESS NOTED. PATIENT ALERT, OPENS EYES, PATIENT INTUBATED, TOLERATING VENT SETTINGS WELL. PATIENT ON DIRECTOR OF TESTING, SR NOTED WITH HISTORY OF AFIB. PATIENT NGT IN PLACE, INTACT, PATENT. PATIENT GRAF CATHETER IN PLACE, INTACT, DRAINING TO GRAVITY. PATIENT RIGHT IJ TLC IN PLACE, INTACT, PATENT WITH 1/2 NS RUNNING AT 75 ML/HR AND TWYLA 0.5MCG/KG/MIN, FLUSHED WELL. PATIENT SAFETY MEASURES MAINTAINED. WILL ENDORSE TO SAW MAKER NURSE FOR ADAM.
--- NOTE | 2020-09-10 19:34 | NUR ---
BOAT CARPENTER OPENING NOTES: Rec'd pt intubated 7.0/23cm at the lip on mechanical ventilation. Tolerating vent settings well. SR on tele monitor. Left NGT in place with Glucerna running at 35ml/hr. Right IJ TLC in place with Delio infusing at 0.5mcg and 1/2 NS infusing at 75ml/hr. Right femoral A line in place. Garcia catheter in place patent and draining urine. Flexiseal in place. Safety measures in place. Will continue to monitor.
[2020-09-10] MEDS: SENNOSIDES 8.6 MG TABLET PO SCH (21:00)
[2020-09-11] VITALS (93 sets, daily range): BP systolic 72–130; BP diastolic 46–76
[2020-09-11] MEDS: IPRATROPIUM NEB FS 0.5 MG/2.5 ML AMPUL.NEB NEB SCH ×7 (00:05→23:37)
[2020-09-11] MEDS: ALBUTEROL FS 2.5 MG/0.5 ML VIAL.NEB NEB SCH ×7 (00:05→23:37)
[2020-09-11] MEDS: PHENYLEPHRINE 50 MG in IV NS 0.9% 245 ML IV PRN (00:35)
--- NOTE | 2020-09-11 00:56 | NUR ---
RT NOTE Pt rec'd orally intubated via ETT 7.0 secured @ 20cm at the lipline. Pt on [facility] vent on AC mode settings as charted. Pt sx'd for thick mod amt of pale yellow secretions. Alarms are set and audible. Ambu bag bedside. Vent plugged into red outlet. Will continue to monitor closely. Addendum: 09/11/20 at 0057 by NORI JOSUE RT Amended: Links added.
[2020-09-11 05:10] LABS: BASOPHILS % (AUTO) 0.3 % (0.0-2.0); EOSINOPHILS % (AUTO) 0.8 % (0.0-6.0); HEMATOCRIT 28 % (33-45); HEMOGLOBIN 8.9 g/dL (11.5-14.8); LYMPHOCYTES # (AUTO) 0.3 /CMM (0.8-4.8); LYMPHOCYTES % (AUTO) 2.9 % (20.0-44.0); MEAN CORPUSCULAR HGB CONC 32 g/dl (31.0-36.0); MEAN CORPUSCULAR VOLUME 96 fL (82-100); MONOCYTES # (AUTO) 0.3 /CMM (0.1-1.30); NEUTROPHILS # (AUTO) 8.1 /CMM (1.8-8.9); PLATELET COUNT (AUTO) 57 /CMM (150-450); RED BLOOD CELL COUNT(AUTO) 2.89 MIL/uL (4.0-5.2); WHITE BLOOD COUNT (AUTO) 8.7 K/uL (4.3-11.0)
[2020-09-11] MEDS: INSULIN REGULAR, HUMAN 100 UNIT/ML 3 ML VIAL SQ PRN (05:21)
[2020-09-11] MEDS: BLOOD SUGAR DIAGNOSTIC 1 EACH STRIP IN SCH ×3 (05:21→18:35)
[2020-09-11 05:25] LABS: CALCIUM, SERUM 7.6 mg/dL (8.5-10.1); CARBON DIOXIDE 19 mmol/L (21-32); CHLORIDE 117 mmol/L (98-107); CREATININE 0.9 mg/dL (0.6-1.3); GLUCOSE 135 mg/dL (74-106); MAGNESIUM 1.9 mg/dL (1.8-2.4); POTASSIUM 4.1 mmol/L (3.5-5.1); SODIUM SERUM 145 mmol/L (136-145); UREA NITROGEN, BLOOD 36 mg/dL (7-18)
[2020-09-11 05:44] LABS: EOSINOPHILS % (MANUAL) 1 % (0-4); LYMPHOCYTES % (MANUAL) 3 % (16-48); MONOCYTES % (MANUAL) 2 % (0-11.0); NEUTROPHILS % (MANUAL) 94 (42-76)
--- NOTE | 2020-09-11 07:00 | NUR ---
WIRER CLOSING NOTES: No significant changes noted throughout shift. Remains intubated on mechanical ventilation. Delio infusing at 0.5mcg through RIJ TLC as well as 1/2NS at 75ml/hr. Garcia catheter in place draining ruine via gravity. Flexiseal in place. All due meds given as ordered. Safety measures in place. Will endorse to oncoming nurse for ADAM.
[2020-09-11] MEDS: DOXYCYCLINE HYCLATE (100 MG) 100 MG TABLET PO SCH ×2 (08:47→21:25)
[2020-09-11] MEDS: CALCIUM CARB 600MG /VIT D 1 EACH TABLET PO SCH (08:47)
[2020-09-11] MEDS: ASCORBIC ACID 500 MG TABLET PO SCH (08:47)
[2020-09-11] MEDS: FERROUS SULFATE (325 MG) 325 MG/TAB TABLET PO SCH ×2 (08:47→16:50)
[2020-09-11] MEDS: FAMOTIDINE (20 MG) 20 MG TABLET GT SCH ×2 (08:47→21:25)
[2020-09-11] MEDS: CYANOCOBALAMIN 500 MCG TABLET PO SCH (08:47)
[2020-09-11] MEDS: MULTIVIT W/MINERALS 1 TAB TABLET PO SCH (08:47)
[2020-09-11] MEDS: METFORMIN 500 MG TABLET PO SCH ×2 (08:47→16:49)
[2020-09-11] MEDS: TIMOLOL MAL/DORZOLAM HCL OPHTH 10 ML BOTTLE RIGHTEYE SCH ×2 (08:48→16:50)
[2020-09-11] MEDS: Z GUARD REMEDY 2 OZ OINT TP SCH ×2 (08:48→21:26)
[2020-09-11] MEDS: MEROPENEM 1 G in IV NS 0.9% 100 ML IV SCH ×2 (08:49→21:25)
[2020-09-11] MEDS: BRIMONIDINE TARTRATE OPHT SOLN 5 ML BOTTLE LEFTEYE SCH ×3 (08:49→16:50)
[2020-09-11] MEDS: IV 1/2NS 1000 ML 1,000 ML IV PRN (10:02)
[2020-09-11] MEDS: GLUCERNA 1.2 1,000 ML BOTTLE NG PRN (20:36)
[2020-09-11] MEDS: SENNOSIDES 8.6 MG TABLET PO SCH (21:25)
[2020-09-12] VITALS (97 sets, daily range): BP systolic 69–119; BP diastolic 35–92
[2020-09-12] MEDS: BLOOD SUGAR DIAGNOSTIC 1 EACH STRIP IN SCH ×4 (00:52→18:03)
[2020-09-12] MEDS: IV 1/2NS 1000 ML 1,000 ML IV PRN ×2 (00:57→16:20)
[2020-09-12] MEDS: PHENYLEPHRINE 50 MG in IV NS 0.9% 245 ML IV PRN (02:16)
[2020-09-12 04:11] LABS: BASOPHILS % (AUTO) 0.5 % (0.0-2.0); EOSINOPHILS % (AUTO) 1.3 % (0.0-6.0); HEMATOCRIT 29 % (33-45); HEMOGLOBIN 9.2 g/dL (11.5-14.8); LYMPHOCYTES # (AUTO) 0.4 /CMM (0.8-4.8); LYMPHOCYTES % (AUTO) 4.4 % (20.0-44.0); MEAN CORPUSCULAR HGB CONC 32 g/dl (31.0-36.0); MEAN CORPUSCULAR VOLUME 96 fL (82-100); MONOCYTES # (AUTO) 0.3 /CMM (0.1-1.30); MONOCYTES % (AUTO) 3.8 % (2.0-12.0); NEUTROPHILS # (AUTO) 7.3 /CMM (1.8-8.9); PLATELET COUNT (AUTO) 75 /CMM (150-450); RED BLOOD CELL COUNT(AUTO) 3.03 MIL/uL (4.0-5.2); WHITE BLOOD COUNT (AUTO) 8.1 K/uL (4.3-11.0)
[2020-09-12 04:38] LABS: CALCIUM, SERUM 7.8 mg/dL (8.5-10.1); CARBON DIOXIDE 20 mmol/L (21-32); CHLORIDE 115 mmol/L (98-107); CREATININE 0.8 mg/dL (0.6-1.3); GLUCOSE 134 mg/dL (74-106); POTASSIUM 4.1 mmol/L (3.5-5.1); SODIUM SERUM 145 mmol/L (136-145); UREA NITROGEN, BLOOD 35 mg/dL (7-18)
[2020-09-12] MEDS: IPRATROPIUM NEB FS 0.5 MG/2.5 ML AMPUL.NEB NEB SCH ×5 (04:42→20:23)
[2020-09-12] MEDS: ALBUTEROL FS 2.5 MG/0.5 ML VIAL.NEB NEB SCH ×5 (04:42→20:23)
[2020-09-12 05:10] LABS: EOSINOPHILS % (MANUAL) 3 % (0-4); LYMPHOCYTES % (MANUAL) 2 % (16-48); MONOCYTES % (MANUAL) 5 % (0-11.0); NEUTROPHILS % (MANUAL) 90 (42-76)
--- NOTE | 2020-09-12 08:27 | NUR ---
WOUND CARE CONSULT: PT SEEN FOR RE-EVALUATION OF SACRAL DEEP TISSUE INJURY, NOW IN EVOLUTION, PRESENT ON ADMISSION. WOUND BED CHANGES NOTED TO INCLUDE LARGER SIZE. PT NOTED TO HAVE PROFOUND WEEPING EDEMA WHICH IS GENERALIZED. RT EAR NOTED TO HAVE INTACT DEEP TISSUE INJURY. RECOMMENDATIONS MADE FOR WOUND CARE AND SKIN PROTECTION. DISCUSSED WITH NURSING STAFF. PT NOTED TO HAVE MULTIPLE CO-MORBIDITIES INCLUDING SEPTIC SHOCK, RESPIRATORY FAILURE (INTUBATED), STATUS POST CARDIAC ARREST, LEFT BELOW KNEE AMPUTATION, DIABETES AND RENAL FAILURE. DUE TO MULTIPLE CO-MORBIDITIES, FURTHER SKIN BREAKDOWN MAY BE UNAVOIDABLE. DISCUSSED WOUNDS WITH TALENT ACQUISITION SOURCER. IN AGREEMENT WITH PLAN OF CARE Addendum: 09/12/20 at 0831 by VENANCIO FITZPATRICK WNDNU Amended: Links added.
[2020-09-12] MEDS: FAMOTIDINE (20 MG) 20 MG TABLET GT SCH ×2 (09:53→21:01)
[2020-09-12] MEDS: FERROUS SULFATE (325 MG) 325 MG/TAB TABLET PO SCH ×2 (09:53→17:38)
[2020-09-12] MEDS: MULTIVIT W/MINERALS 1 TAB TABLET PO SCH (09:53)
[2020-09-12] MEDS: CALCIUM CARB 600MG /VIT D 1 EACH TABLET PO SCH (09:53)
[2020-09-12] MEDS: METFORMIN 500 MG TABLET PO SCH ×2 (09:53→17:38)
[2020-09-12] MEDS: ASCORBIC ACID 500 MG TABLET PO SCH (09:53)
[2020-09-12] MEDS: CYANOCOBALAMIN 500 MCG TABLET PO SCH (09:53)
[2020-09-12] MEDS: BRIMONIDINE TARTRATE OPHT SOLN 5 ML BOTTLE LEFTEYE SCH ×3 (09:54→16:24)
[2020-09-12] MEDS: Z GUARD REMEDY 2 OZ OINT TP SCH ×2 (09:54→21:01)
[2020-09-12] MEDS: TIMOLOL MAL/DORZOLAM HCL OPHTH 10 ML BOTTLE RIGHTEYE SCH ×2 (09:54→16:25)
--- NOTE | 2020-09-12 16:38 | NUR ---
CONTACTED MARY ALICE FLAQUITA (SON) TO RECEIVE OVER THE PHONE CONSENT FOR TRACHEOSTOMY PLACEMENT. NO ANSWER. LEFT VM. WILL F/U.
[2020-09-12] MEDS: EPOETIN ALFA (10,000 UNIT) 10,000 UNIT/ML VIAL IJ SCH (18:34)
--- NOTE | 2020-09-12 19:21 | NUR ---
FOR IT CONSULTING MANAGER TO CONTACT RESPONSIBLE CONSTITUTION PARTY REGARDING OPTIONS FOR CARE.
[2020-09-12] MEDS: SENNOSIDES 8.6 MG TABLET PO SCH (21:00)
[2020-09-13] VITALS (103 sets, daily range): BP systolic 60–147; BP diastolic 27–82
[2020-09-13] MEDS: IPRATROPIUM NEB FS 0.5 MG/2.5 ML AMPUL.NEB NEB SCH ×6 (00:02→20:41)
[2020-09-13] MEDS: ALBUTEROL FS 2.5 MG/0.5 ML VIAL.NEB NEB SCH ×6 (00:02→20:41)
[2020-09-13] MEDS: BLOOD SUGAR DIAGNOSTIC 1 EACH STRIP IN SCH ×5 (00:53→23:48)
[2020-09-13] MEDS: PHENYLEPHRINE 50 MG in IV NS 0.9% 245 ML IV PRN ×4 (02:00→20:16)
--- NOTE | 2020-09-13 04:11 | NUR ---
RT NOTE Pt rec'd orally intubated via ETT 7.0 secured @ 20cm at the lipline. Pt on [facility] vent on AC mode settings as charted. Pt sx'd for thick mod amt of pale yellow secretions. Alarms are set and audible. Ambu bag bedside. Vent plugged into red outlet. Will continue to monitor closely. Addendum: 09/13/20 at 0411 by NORI JOSUE RT Amended: Links added.
[2020-09-13 04:45] LABS: BASOPHILS # (AUTO) 0.1 /CMM (0.0-0.2); BASOPHILS % (AUTO) 0.5 % (0.0-2.0); EOSINOPHILS % (AUTO) 0.7 % (0.0-6.0); HEMATOCRIT 32 % (33-45); HEMOGLOBIN 10.2 g/dL (11.5-14.8); LYMPHOCYTES # (AUTO) 0.6 /CMM (0.8-4.8); LYMPHOCYTES % (AUTO) 5.9 % (20.0-44.0); MEAN CORPUSCULAR HGB CONC 32 g/dl (31.0-36.0); MEAN CORPUSCULAR VOLUME 95 fL (82-100); MONOCYTES # (AUTO) 0.4 /CMM (0.1-1.30); MONOCYTES % (AUTO) 3.7 % (2.0-12.0); NEUTROPHILS # (AUTO) 9.7 /CMM (1.8-8.9); NEUTROPHILS % (AUTO) 89.2 % (43.0-81.0); PLATELET COUNT (AUTO) 98 /CMM (150-450); RED BLOOD CELL COUNT(AUTO) 3.36 MIL/uL (4.0-5.2); WHITE BLOOD COUNT (AUTO) 10.8 K/uL (4.3-11.0)
[2020-09-13 05:08] LABS: CALCIUM, SERUM 8.1 mg/dL (8.5-10.1); CREATININE 0.8 mg/dL (0.6-1.3); POTASSIUM 4.1 mmol/L (3.5-5.1)
[2020-09-13 05:42] LABS: LYMPHOCYTES % (MANUAL) 6 % (16-48); MONOCYTES % (MANUAL) 4 % (0-11.0); NEUTROPHILS % (MANUAL) 90 (42-76)
[2020-09-13] MEDS: IV 1/2NS 1000 ML 1,000 ML IV PRN ×2 (06:08→12:06)
--- NOTE | 2020-09-13 07:15 | NUR ---
DIGITAL CARTOGRAPHER NOTES RECEIVED PATIENT LETHARGIC , AWAKE RESPONSIVE TO TACTILE STIMULI , TOLERATING CURRENT VENT SETTINGS WITH SPO2 OF 97% , ETT 7.0/23 ,AFIB 65 ON BEDSIDE MONITOR , L NARE NGT PATENT AND INTACT WITH GLUCERNA @ 35ML/HR WITH NO RESIDUALS NOTED , FC DRAINING VIA GRAVITY , RIJ TLC WITH NEOSYENPRINE @ 1.2MCG/KG/MIN AND 1/2 NS @ 75ML/HR INFUSING WELL , ALL NEEDS ATTENDED M WILL CONTINUE TO MONITOR .
[2020-09-13] MEDS: FERROUS SULFATE (325 MG) 325 MG/TAB TABLET PO SCH ×2 (08:59→16:44)
[2020-09-13] MEDS: MULTIVIT W/MINERALS 1 TAB TABLET PO SCH (08:59)
[2020-09-13] MEDS: CALCIUM CARB 600MG /VIT D 1 EACH TABLET PO SCH (08:59)
[2020-09-13] MEDS: FAMOTIDINE (20 MG) 20 MG TABLET GT SCH ×2 (08:59→21:08)
[2020-09-13] MEDS: ASCORBIC ACID 500 MG TABLET PO SCH (08:59)
[2020-09-13] MEDS: BRIMONIDINE TARTRATE OPHT SOLN 5 ML BOTTLE LEFTEYE SCH ×3 (08:59→16:44)
[2020-09-13] MEDS: METFORMIN 500 MG TABLET PO SCH ×2 (08:59→16:44)
[2020-09-13] MEDS: Z GUARD REMEDY 2 OZ OINT TP SCH ×2 (09:00→21:06)
[2020-09-13] MEDS: TIMOLOL MAL/DORZOLAM HCL OPHTH 10 ML BOTTLE RIGHTEYE SCH ×2 (09:00→16:44)
[2020-09-13] MEDS: CYANOCOBALAMIN 500 MCG TABLET PO SCH (09:00)
[2020-09-13] MEDS: GLUCERNA 1.2 1,000 ML BOTTLE NG PRN (12:05)
--- NOTE | 2020-09-13 19:30 | NUR ---
RN NOTES RECEIVED PATIENT ORALLY INTUBATED WITH ETT 7/23 CM AT LIPLINE. WITH VENT SETTING AC 16 TV 300 FIO2 40% AND PEEP 5 TOLERATED WELL SATURATION 99%. NO SEDATION , PATIENT IS LETHARGIC. AFIB ON MONITOR. WITH LNGTF GLUCERNA @ 35 ML/HR, PATENCY CHECKED HOB KEPT ELEVATED. IV SITE ON RIJ RUNNING WITH TWYLA TITRATED ORDERED. AND IVF NS @ 75 ML/HR INTACT AND PATENT. F/C DRAINED WITH YELLOW COLOR URINE. FLEXISEAL KEPT IN PLACED. KEPT PT CLEAN AND DRY. WILL TURN AND REPOSITION Q2H AND PRN.
[2020-09-13] MEDS: SENNOSIDES 8.6 MG TABLET PO SCH (21:04)
[2020-09-13] MEDS: NOREPINEPHRINE 8 MG in IV NS 0.9% 250 ML IV PRN (21:54)
--- NOTE | 2020-09-13 22:00 | NUR ---
RN NOTES LEVOPHED STARTED DUE TO SBP REMAINED <90 DESPITE OF NEOSYNEPHRINE AT MAX DOSE.
--- NOTE | 2020-09-13 23:43 | NUR ---
RT NOTE Pt rec'd orally intubated via ETT 7.0 secured @ 20cm at the lipline. Pt on [facility] vent on AC mode settings as charted. Pt sx'd for thick mod amt of pale yellow secretions. Alarms are set and audible. Ambu bag bedside. Vent plugged into red outlet. Will continue to monitor closely. Addendum: 09/13/20 at 2344 by NORI JOSUE RT Amended: Links added.
[2020-09-14] VITALS (94 sets, daily range): BP systolic 68–150; BP diastolic 45–87
[2020-09-14] MEDS: ALBUTEROL FS 2.5 MG/0.5 ML VIAL.NEB NEB SCH ×7 (00:06→23:02)
[2020-09-14] MEDS: IPRATROPIUM NEB FS 0.5 MG/2.5 ML AMPUL.NEB NEB SCH ×7 (00:06→23:02)
[2020-09-14] MEDS: IV 1/2NS 1000 ML 1,000 ML IV PRN ×2 (00:43→15:52)
[2020-09-14] MEDS: PHENYLEPHRINE 50 MG in IV NS 0.9% 245 ML IV PRN ×4 (01:07→17:52)
[2020-09-14] MEDS: BLOOD SUGAR DIAGNOSTIC 1 EACH STRIP IN SCH ×4 (06:00→23:25)
[2020-09-14 06:04] LABS: BASOPHILS % (AUTO) 0.1 % (0.0-2.0); EOSINOPHILS % (AUTO) 0.1 % (0.0-6.0); HEMATOCRIT 30 % (33-45); HEMOGLOBIN 9.3 g/dL (11.5-14.8); LYMPHOCYTES # (AUTO) 0.7 /CMM (0.8-4.8); LYMPHOCYTES % (AUTO) 4.7 % (20.0-44.0); MEAN CORPUSCULAR HGB CONC 31 g/dl (31.0-36.0); MEAN CORPUSCULAR VOLUME 96 fL (82-100); MONOCYTES # (AUTO) 0.6 /CMM (0.1-1.30); NEUTROPHILS # (AUTO) 13.3 /CMM (1.8-8.9); NEUTROPHILS % (AUTO) 91.1 % (43.0-81.0); PLATELET COUNT (AUTO) 151 /CMM (150-450); RED BLOOD CELL COUNT(AUTO) 3.11 MIL/uL (4.0-5.2); WHITE BLOOD COUNT (AUTO) 14.6 K/uL (4.3-11.0)
[2020-09-14] MEDS ORDERED: PHENYLEPHRINE 10 MG/ML VIAL ONE (06:06)
[2020-09-14 06:15] LABS: CALCIUM, SERUM 8.1 mg/dL (8.5-10.1); CARBON DIOXIDE 16 mmol/L (21-32); CHLORIDE 111 mmol/L (98-107); CREATININE 0.7 mg/dL (0.6-1.3); GLUCOSE 170 mg/dL (74-106); MAGNESIUM 1.8 mg/dL (1.8-2.4); PHOSPHORUS 3.1 mg/dL (2.5-4.9); POTASSIUM 4.4 mmol/L (3.5-5.1); SODIUM SERUM 138 mmol/L (136-145); UREA NITROGEN, BLOOD 38 mg/dL (7-18)
[2020-09-14] MEDS: INSULIN REGULAR, HUMAN 100 UNIT/ML 3 ML VIAL SQ PRN ×2 (07:08→23:26)
--- NOTE | 2020-09-14 07:15 | NUR ---
RN NOTES PATIENT REMAINED STABLE. NO SIGNIFICANT CHANGES TROUGHOUT THE SHIFT. AFEBRILE. ETT AND VENT SETTING TOLERATED WELL. IV SITE INTACT AND PATENT CONTINUE WITH PRESSORS TITRATED ORDERED. IV ATB CONTINUE. KEPT PT CLEAN AND DRY PATIENT OOZING. ALL DUE MEDICINE TOLERATED WELL . ENDORSED CONTINUITY OF CARE TO AM NURSE.
--- NOTE | 2020-09-14 08:00 | NUR ---
received pt from medical instrument cable fabricator, lethargic, does not follow commands, A fib-SR, NT to feeding tolerates well, f/c OK output, receiving levo at 3mcg, v/s stable, no pain, pt turned and repositioned.
[2020-09-14] MEDS: ASCORBIC ACID 500 MG TABLET PO SCH (09:05)
[2020-09-14] MEDS: FERROUS SULFATE (325 MG) 325 MG/TAB TABLET PO SCH ×2 (09:11→17:45)
[2020-09-14] MEDS: CALCIUM CARB 600MG /VIT D 1 EACH TABLET PO SCH (09:11)
[2020-09-14] MEDS: CYANOCOBALAMIN 500 MCG TABLET PO SCH (09:11)
[2020-09-14] MEDS: MULTIVIT W/MINERALS 1 TAB TABLET PO SCH (09:11)
[2020-09-14] MEDS: FAMOTIDINE (20 MG) 20 MG TABLET GT SCH ×2 (09:11→22:01)
[2020-09-14] MEDS: Z GUARD REMEDY 2 OZ OINT TP SCH ×2 (09:12→22:02)
[2020-09-14] MEDS: TIMOLOL MAL/DORZOLAM HCL OPHTH 10 ML BOTTLE RIGHTEYE SCH ×2 (09:12→17:42)
[2020-09-14] MEDS: METFORMIN 500 MG TABLET PO SCH ×2 (09:12→17:45)
[2020-09-14] MEDS: BRIMONIDINE TARTRATE OPHT SOLN 5 ML BOTTLE LEFTEYE SCH ×3 (09:13→17:42)
--- NOTE | 2020-09-14 16:35 | NUR ---
pt is resting in the bed, lethargic, does not follow commands, A fib to SR, tolerates feeding, receiving alejo at 2.5mcg, v/s stable, no pain, pt cleaned, changed and repositioned.
--- NOTE | 2020-09-14 19:20 | NUR ---
RECEIVED PT A/OX1 IN BED RESTING COMFORTABLY. PATIENT IN NO S/SX OF ACUTE DISTRESS AT THIS TIME. NO SOB NOTED. PATIENT'S BREATHING IS EVEN AND UNLABORED. PATIENT ON MECHANICAL VENT; SETTINGS PRESCRIBED; PT TOLERATED WELL. AMBU BAG AT BED SIDE ALARMS SET PER PROTOCOL AND AUDIBLE. VENT PLUGGED IN TO RED OUTLET. NO DISTRESS NOTED. PATIENT ON TELE MONITORING READING SINUS RHYTHM HR IS @80S AT THE TIME OF RECEIVED. NOTED L NGT IN PLACED. PLACEMENT VERIFIED WITH AUSCULTATION. NO RESIDUAL TAKEN AT THIS TIME. PT ON GLUCERNA @35,L/HR VIA NGT; TOLERATES WELL NOTED IV SITE ON R IJ (TRIPLE LUMEN); PATENT, INTACT AND FLUSHING WELL; NO S/S OF INFECTION OR INFILTRATION. WITH IV FLUID RUNNING ORDERED. GRAF CATH IN PLACE, MINIMAL URINE OUTPUT. FLEXISEAL NOTED IN PLACE DRAINING WELL. WITH CVP MONITORING; TUBING SECURE AND DRESSING INTACT;MONITORED PER PROTOCOL.SAFETY MEASURES HAVE BEEN PROVIDED AND IMPLEMENTED. PATIENT BED ALARM IS ON. HEAD OF BED ELEVATED. BED IS LOCKED, IN LOWEST POSITION AND SIDE RAILS UP. CALL LIGHT WITHIN REACH OF THE PATIENT. APPLICABLE ISOLATION PRECAUTIONS IN PLACE. WILL CONTINUE TO MONITOR AND REASSESS FOR ANY CHANGES AND WILL CARRY OUT ANY ONGOING AND ACTIVE MD ORDER.
--- NOTE | 2020-09-14 19:29 | NUR ---
PT REC'D ORALLY INTUBATED VIA ETT 7.0 SECURED @ 20 CM LIP LINE ON [facility] VENT WITH THE SETTINGS OF AC 16, 300,40%,PEEP 5. Q4 BREATHING TX GIVEN PER MD'S ORDER. NO ADVERSE REACTION NOTED. NO RESPIRATORY DISTRESS NOTED AT THIS TIME. SX DONE . ALARMS ARE SET AND AUDIBLE. VENT PLUGGED INTO RED OUTLET. AMBU BAG @ BEDSIDE. WILL CONTINUE TO MONITOR Addendum: 09/15/20 at 0155 by LALI BERRIOS RT Amended: Links added.
--- NOTE | 2020-09-14 22:00 | NUR ---
RN NOTES PATIENT REMAINS IN NO ACUTE RESPIRATORY DISTRESS AT THIS TIME, NO CHANGES TO CONDITION/STATUS. GARNISHER WELL AWARE. WILL CONTINUE TO MONITOR AND REASSESS FOR ANY CHANGES THROUGHOUT THE SHIFT
[2020-09-14] MEDS: SENNOSIDES 8.6 MG TABLET PO SCH (22:01)
[2020-09-15] VITALS (102 sets, daily range): BP systolic 54–159; BP diastolic 37–79
[2020-09-15] MEDS: PHENYLEPHRINE 50 MG in IV NS 0.9% 245 ML IV PRN (01:17)
[2020-09-15] MEDS: GLUCERNA 1.2 1,000 ML BOTTLE NG PRN (01:55)
[2020-09-15] MEDS: NOREPINEPHRINE 8 MG in IV NS 0.9% 250 ML IV PRN ×2 (02:45→15:15)
--- NOTE | 2020-09-15 03:00 | NUR ---
RN NOTES NO CHANGE IN PATIENT CONDITION AT THIS TIME PATIENT VITALS STABLE, NO SIGNS OF ACUTE RESPIRATORY DISTRESS. MEDICAL OFFICE SUPERVISOR MADE AWARE. WILL CONTINUE TO MONITOR AND REASSESS FOR ANY CHANGES THROUGHOUT THE SHIFT.
[2020-09-15] MEDS: ALBUTEROL FS 2.5 MG/0.5 ML VIAL.NEB NEB SCH ×6 (03:20→23:35)
[2020-09-15] MEDS: IPRATROPIUM NEB FS 0.5 MG/2.5 ML AMPUL.NEB NEB SCH ×6 (03:21→23:35)
[2020-09-15] MEDS: IV 1/2NS 1000 ML 1,000 ML IV PRN ×2 (04:27→18:22)
[2020-09-15 05:05] LABS: BASOPHILS % (AUTO) 0.2 % (0.0-2.0); EOSINOPHILS % (AUTO) 0.5 % (0.0-6.0); HEMATOCRIT 26 % (33-45); HEMOGLOBIN 8.3 g/dL (11.5-14.8); LYMPHOCYTES # (AUTO) 0.8 /CMM (0.8-4.8); LYMPHOCYTES % (AUTO) 5.5 % (20.0-44.0); MEAN CORPUSCULAR HGB CONC 31 g/dl (31.0-36.0); MEAN CORPUSCULAR VOLUME 98 fL (82-100); MONOCYTES # (AUTO) 0.6 /CMM (0.1-1.30); MONOCYTES % (AUTO) 4.1 % (2.0-12.0); NEUTROPHILS # (AUTO) 12.4 /CMM (1.8-8.9); NEUTROPHILS % (AUTO) 89.7 % (43.0-81.0); PLATELET COUNT (AUTO) 149 /CMM (150-450); RED BLOOD CELL COUNT(AUTO) 2.69 MIL/uL (4.0-5.2); WHITE BLOOD COUNT (AUTO) 13.8 K/uL (4.3-11.0)
[2020-09-15] MEDS: BLOOD SUGAR DIAGNOSTIC 1 EACH STRIP IN SCH ×3 (05:20→18:00)
[2020-09-15] MEDS: INSULIN REGULAR, HUMAN 100 UNIT/ML 3 ML VIAL SQ PRN (05:22)
[2020-09-15 05:29] LABS: CREATININE 0.8 mg/dL (0.6-1.3); POTASSIUM 4.4 mmol/L (3.5-5.1)
--- NOTE | 2020-09-15 06:56 | NUR ---
HEALTH SAFETY MANAGER CLOSING NOTES PATIENT RESTING IN BED COMFORTABLY,PT TOLERATING VENT SETTINGS ORDERED. NO SIGNS OF ACUTE DISTRESS. BREATHING EVEN AND UNLABORED. TELE MONITORS READING SR ( 80S ). VITAL SIGNS WNL. TUBE FEEDING RUNNING (GLUCERNA) @ 35ML/HR VIA NGT. IV LINE REMAINED PATENT AND INTACT WITHIN END OF SHIFT. WITH RUNNING PRESSORS OF TWYLA @1.5MCG/KG/MIN. SAFETY PRECAUTIONS IN PLACE WITH BED IN LOWEST POSITION, CALL LIGHT WITHIN REACH, BREAKS ON, SIDE RAILS UP. ALL NEEDS ATTENDED TO; SHIFT ASSESSMENT/BEDBATH/SKIN/WOUND CARE DONE. PATIENT KEPT CLEAN AND DRY. WILL ENDORSE TO ONCOMING SHIFT FOR ADAM WITH ALL PERTINENT INFO REGARDING PATIENT STATUS.
--- NOTE | 2020-09-15 08:00 | NUR ---
received pt from cage shift manager, lethargic, does not follow commands, Afib to SR, intubated, sat well, f/c OK output, NG to feeding tolerates well, receiving alejo at 1.5mcg, weeping edema throughout, v/s stable, no pain, pt turned and repositioned.
[2020-09-15] MEDS ORDERED: NOREPINEPHRINE 8 MG in IV NS 0.9% 242 ML IV PRN (10:30)
[2020-09-15] MEDS: TIMOLOL MAL/DORZOLAM HCL OPHTH 10 ML BOTTLE RIGHTEYE SCH ×2 (10:44→17:03)
[2020-09-15] MEDS: BRIMONIDINE TARTRATE OPHT SOLN 5 ML BOTTLE LEFTEYE SCH ×3 (10:44→17:03)
[2020-09-15] MEDS: Z GUARD REMEDY 2 OZ OINT TP SCH ×2 (10:46→21:56)
[2020-09-15] MEDS: CALCIUM CARB 600MG /VIT D 1 EACH TABLET PO SCH (10:51)
[2020-09-15] MEDS: MULTIVIT W/MINERALS 1 TAB TABLET PO SCH (10:52)
[2020-09-15] MEDS: FERROUS SULFATE (325 MG) 325 MG/TAB TABLET PO SCH ×2 (10:52→17:08)
[2020-09-15] MEDS: METFORMIN 500 MG TABLET PO SCH ×2 (10:52→17:03)
[2020-09-15] MEDS: ASCORBIC ACID 500 MG TABLET PO SCH (10:52)
[2020-09-15] MEDS: CYANOCOBALAMIN 500 MCG TABLET PO SCH (10:52)
[2020-09-15] MEDS: FAMOTIDINE (20 MG) 20 MG TABLET GT SCH ×2 (10:57→21:47)
--- NOTE | 2020-09-15 16:57 | NUR ---
pt is resting in the bed, lethargic/obtunded, Afib to SR, on levo at 0.1mcg, tolerates feeding, OK urine output, v/s stable, no pain.
--- NOTE | 2020-09-15 19:10 | NUR ---
COPRA PROCESSOR OPENING NOTES RECEIVED PT A/OX1 IN BED RESTING COMFORTABLY. PATIENT IN NO S/SX OF ACUTE DISTRESS AT THIS TIME. NO SOB NOTED. PATIENT'S BREATHING IS EVEN AND UNLABORED. PATIENT ON MECHANICAL VENT; SETTINGS PRESCRIBED; PT TOLERATED WELL. AMBU BAG AT BED SIDE ALARMS SET PER PROTOCOL AND AUDIBLE. VENT PLUGGED IN TO RED OUTLET. NO DISTRESS NOTED. PATIENT ON TELE MONITORING READING SINUS RHYTHM HR IS @70S AT THE TIME OF RECEIVED. NOTED L NGT IN PLACED. PLACEMENT VERIFIED WITH AUSCULTATION. NO RESIDUAL TAKEN AT THIS TIME. PT ON GLUCERNA @35ML/HR VIA NGT; TOLERATES WELL NOTED IV SITE ON R IJ (TRIPLE LUMEN); PATENT, INTACT AND FLUSHING WELL; NO S/S OF INFECTION OR INFILTRATION. WITH IV FLUID RUNNING ORDERED; WITH LEVO CURRENTLY RUNNING @0.1 MCG/KG/MIN. GRAF CATH IN PLACE, MINIMAL URINE OUTPUT. FLEXISEAL NOTED IN PLACE DRAINING WELL. WITH CVP MONITORING; TUBING SECURE AND DRESSING INTACT;MONITORED PER PROTOCOL. SAFETY MEASURES HAVE BEEN PROVIDED AND IMPLEMENTED. PATIENT BED ALARM IS ON. HEAD OF BED ELEVATED. BED IS LOCKED, IN LOWEST POSITION AND SIDE RAILS UP. CALL LIGHT WITHIN REACH OF THE PATIENT. APPLICABLE ISOLATION PRECAUTIONS IN PLACE. WILL CONTINUE TO MONITOR AND REASSESS FOR ANY CHANGES AND WILL CARRY OUT ANY ONGOING AND ACTIVE MD ORDER.
[2020-09-15] MEDS: SENNOSIDES 8.6 MG TABLET PO SCH (21:47)
--- NOTE | 2020-09-15 21:49 | NUR ---
RN NOTES RN CHECK PLACEMENT of NG-TUBE, PLACEMENT VERIFIED AND CONFIRMED VIA AUSCULTATION DUE MEDICATIONS ( FAMOTIDINE AND SENOKOT) GIVEN SCHEDULED VIA NGT. CHIEF DESIGN BRANCH MADE AWARE. WILL CONTINUE TO ASSESS AND MONITOR THROUGHOUT THE SHIFT.
--- NOTE | 2020-09-15 23:00 | NUR ---
PREP COOK NOTES PATIENT REMAINS IN NO ACUTE RESPIRATORY DISTRESS AT THIS TIME, NO CHANGES TO CONDITION/STATUS. LEAD RUBY ON RAILS DEVELOPER WELL AWARE. WILL CONTINUE TO MONITOR AND REASSESS FOR ANY CHANGES THROUGHOUT THE SHIFT
[2020-09-16] VITALS (86 sets, daily range): BP systolic 64–131; BP diastolic 40–71
[2020-09-16] MEDS: BLOOD SUGAR DIAGNOSTIC 1 EACH STRIP IN SCH ×5 (00:02→23:31)
[2020-09-16] MEDS: INSULIN REGULAR, HUMAN 100 UNIT/ML 3 ML VIAL SQ PRN ×3 (00:03→23:33)
--- NOTE | 2020-09-16 04:00 | NUR ---
WATER QUALITY TESTER NOTES NO CHANGE IN PATIENT CONDITION AT THIS TIME PATIENT VITALS STABLE, NO SIGNS OF ACUTE RESPIRATORY DISTRESS. EMBEDDED SYSTEMS ENGINEER MADE AWARE. WILL CONTINUE TO MONITOR AND REASSESS FOR ANY CHANGES THROUGHOUT THE SHIFT.
[2020-09-16] MEDS: IPRATROPIUM NEB FS 0.5 MG/2.5 ML AMPUL.NEB NEB SCH ×6 (04:09→23:43)
[2020-09-16] MEDS: ALBUTEROL FS 2.5 MG/0.5 ML VIAL.NEB NEB SCH ×6 (04:09→23:43)
--- NOTE | 2020-09-16 06:55 | NUR ---
OCULAR CARE TECHNICIAN CLOSING NOTES PATIENT RESTING IN BED COMFORTABLY,PT TOLERATING VENT SETTINGS ORDERED. NO SIGNS OF ACUTE DISTRESS. BREATHING EVEN AND UNLABORED. TELE MONITORS READING SR ( 80S). VITAL SIGNS WNL. TUBE FEEDING RUNNING (GLUCERNA) @35ML/HR VIA NGT. IV LINE REMAINED PATENT AND INTACT WITHIN END OF SHIFT. WITH RUNNING PRESSOR OF of LEVOPHED @0.05MCG/KG/MIN. SAFETY PRECAUTIONS IN PLACE WITH BED IN LOWEST POSITION, CALL LIGHT WITHIN REACH, BREAKS ON, SIDE RAILS UP. ALL NEEDS ATTENDED TO; SHIFT ASSESSMENT/BEDBATH/SKIN/WOUND CARE DONE. PATIENT KEPT CLEAN AND DRY. WILL ENDORSE TO ONCOMING SHIFT FOR ADAM WITH ALL PERTINENT INFO REGARDING PATIENT STATUS.
[2020-09-16] MEDS: CYANOCOBALAMIN 500 MCG TABLET PO SCH (10:03)
[2020-09-16] MEDS: ASCORBIC ACID 500 MG TABLET PO SCH (10:04)
[2020-09-16] MEDS: FAMOTIDINE (20 MG) 20 MG TABLET GT SCH ×2 (10:04→21:07)
[2020-09-16] MEDS: FERROUS SULFATE (325 MG) 325 MG/TAB TABLET PO SCH (10:04)
[2020-09-16] MEDS: METFORMIN 500 MG TABLET PO SCH (10:04)
[2020-09-16] MEDS: CALCIUM CARB 600MG /VIT D 1 EACH TABLET PO SCH (10:05)
[2020-09-16] MEDS: BRIMONIDINE TARTRATE OPHT SOLN 5 ML BOTTLE LEFTEYE SCH ×3 (10:05→18:12)
[2020-09-16] MEDS: MULTIVIT W/MINERALS 1 TAB TABLET PO SCH (10:05)
[2020-09-16] MEDS: Z GUARD REMEDY 2 OZ OINT TP SCH ×2 (10:06→21:07)
[2020-09-16] MEDS: TIMOLOL MAL/DORZOLAM HCL OPHTH 10 ML BOTTLE RIGHTEYE SCH ×2 (10:06→18:12)
[2020-09-16] MEDS: IV 1/2NS 1000 ML 1,000 ML IV PRN (10:07)
[2020-09-16] MEDS: NOREPINEPHRINE 8 MG in IV NS 0.9% 250 ML IV PRN (10:11)
[2020-09-16] MEDS ORDERED: CALCIUM CARB 600MG /VIT D 1 EACH TABLET GT SCH (12:55)
[2020-09-16] MEDS ORDERED: ERGOCALCIFEROL (VITAMIN D 2) 50,000 UNIT CAPSULE GT SCH ×2 (12:56→17:00)
[2020-09-16] MEDS ORDERED: MULTIVIT W/MINERALS 1 TAB TABLET GT SCH (12:58)
[2020-09-16] MEDS ORDERED: SENNOSIDES 8.6 MG TABLET GT SCH (12:58)
[2020-09-16] MEDS ORDERED: PHARMACY TO CHANGE PO MEDS TO GT/NG XX PRN (13:00)
[2020-09-16] MEDS ORDERED: ASCORBIC ACID 500 MG TABLET GT SCH (13:08)
[2020-09-16] MEDS ORDERED: CYANOCOBALAMIN 500 MCG TABLET GT SCH (13:08)
[2020-09-16] MEDS: FERROUS SULFATE (325 MG) 325 MG/TAB TABLET GT SCH (18:11)
[2020-09-16] MEDS: METFORMIN 500 MG TABLET GT SCH (18:11)
--- NOTE | 2020-09-16 19:00 | NUR ---
Received patient orally intubated to the ventilator on aC mode.not in any distress,breathing regular and non labored.On levophed drip for BP support.TLC via right IJ to CVP monitor. Lethargic,responds to deep pain,+ grimace,slightly opens eyes to pain,+slight cough when suctioned.Feeding via NGT tolerating well ,Aspiration precaution implemented.Comfort care done.
--- NOTE | 2020-09-16 19:57 | NUR ---
PT REC'D ORALLY INTUBATED VIA ETT 7.0 SECURED @ 20 CM LIP LINE [facility] WITH THE SETTINGS OF AC 16, 300,40%,PEEP 5. Q4 BREATHING TX GIVEN PER MD'S ORDER. NO ADVERSE REACTION NOTED. NO RESPIRATORY DISTRESS NOTED AT THIS TIME. SX DONE . ALARMS ARE SET AND AUDIBLE. VENT PLUGGED INTO RED OUTLET. AMBU BAG @ BEDSIDE. WILL CONTINUE TO MONITOR
[2020-09-17] VITALS (66 sets, daily range): BP systolic 64–107; BP diastolic 36–62
--- NOTE | 2020-09-17 | NUR ---
No change in status ,V/S stable,still on Levophed drip .
[2020-09-17] MEDS: IV 1/2NS 1000 ML 1,000 ML IV PRN (01:03)
[2020-09-17] MEDS: IPRATROPIUM NEB FS 0.5 MG/2.5 ML AMPUL.NEB NEB SCH ×3 (03:40→11:26)
[2020-09-17] MEDS: ALBUTEROL FS 2.5 MG/0.5 ML VIAL.NEB NEB SCH ×3 (03:40→11:26)
[2020-09-17 04:52] LABS: BASOPHILS % (AUTO) 0.1 % (0.0-2.0); EOSINOPHILS % (AUTO) 0.2 % (0.0-6.0); HEMATOCRIT 24 % (33-45); HEMOGLOBIN 7.6 g/dL (11.5-14.8); LYMPHOCYTES # (AUTO) 0.7 /CMM (0.8-4.8); LYMPHOCYTES % (AUTO) 4.2 % (20.0-44.0); MEAN CORPUSCULAR HGB CONC 32 g/dl (31.0-36.0); MEAN CORPUSCULAR VOLUME 98 fL (82-100); MONOCYTES # (AUTO) 0.6 /CMM (0.1-1.30); MONOCYTES % (AUTO) 3.4 % (2.0-12.0); NEUTROPHILS # (AUTO) 15.4 /CMM (1.8-8.9); NEUTROPHILS % (AUTO) 92.1 % (43.0-81.0); PLATELET COUNT (AUTO) 155 /CMM (150-450); RED BLOOD CELL COUNT(AUTO) 2.47 MIL/uL (4.0-5.2); WHITE BLOOD COUNT (AUTO) 16.7 K/uL (4.3-11.0)
[2020-09-17 05:07] LABS: CALCIUM, SERUM 7.7 mg/dL (8.5-10.1); CARBON DIOXIDE 16 mmol/L (21-32); CHLORIDE 108 mmol/L (98-107); CREATININE 0.8 mg/dL (0.6-1.3); GLUCOSE 124 mg/dL (74-106); MAGNESIUM 1.8 mg/dL (1.8-2.4); PHOSPHORUS 3.5 mg/dL (2.5-4.9); POTASSIUM 4.6 mmol/L (3.5-5.1); SODIUM SERUM 135 mmol/L (136-145); UREA NITROGEN, BLOOD 38 mg/dL (7-18)
--- NOTE | 2020-09-17 06:00 | NUR ---
REmains stable on the ventilator , lethargic,respond to pain .
[2020-09-17] MEDS: BLOOD SUGAR DIAGNOSTIC 1 EACH STRIP IN SCH ×2 (06:04→12:00)
[2020-09-17] MEDS: GLUCERNA 1.2 1,000 ML BOTTLE NG PRN (06:45)
--- NOTE | 2020-09-17 10:06 | NUR ---
Per Dr. Mirza's request, GUILLE called the pt.'s son, Lonny Galaviz [phone] and left voicemail to arrange bioethics meeting today before 1pm. SW also spoke to pt.'s nurse, Ginny who stated that pt. has a daughter, Harriet. GUILLE called pt.'s daughter, Harriet Galaviz [phone] who stated that the pt. has a , Babak Galaviz who is able to make decision's on behalf of the pt. GUILLE arranged Bioethics meeting with family and Dr. Isauro Aviles at 12 pm. SW to facilitate phone call and will be available as needed.
[2020-09-17] MEDS: FAMOTIDINE (20 MG) 20 MG TABLET GT SCH (10:17)
[2020-09-17] MEDS: FERROUS SULFATE (325 MG) 325 MG/TAB TABLET GT SCH (10:20)
[2020-09-17] MEDS: METFORMIN 500 MG TABLET GT SCH (10:20)
[2020-09-17] MEDS: TIMOLOL MAL/DORZOLAM HCL OPHTH 10 ML BOTTLE RIGHTEYE SCH (10:22)
[2020-09-17] MEDS: BRIMONIDINE TARTRATE OPHT SOLN 5 ML BOTTLE LEFTEYE SCH ×2 (10:22→13:00)
[2020-09-17] MEDS: Z GUARD REMEDY 2 OZ OINT TP SCH (10:25)
--- NOTE | 2020-09-17 13:35 | NUR ---
Bioethics meeting facilitated by this SW. Participants included: Isauro Mirza MD; Jake Reid MD, the pt.s son, Lonny and nephew, Rene [phone]. Rene informed SW prior to meeting that the pt.s , Babak and eldest son, Robert are both ill and have given consent for Lonny & Rene to make medical decisions on behalf of pt. Lonny informed SW that the pt.s eldest daughter is in [place] and not able to participate in meeting. Lonny stated that the pt.s younger daughter, Harriet [phone] has not been in the pt.s life for over 6 years and they would prefer that [facility] not disclose information to Harriet from now on. SW notified pt.s nurse, Acacia of above stated information. Dr. Mirza and Dr. Reid explained the pt.s current condition and possible Tx. Options to the family. Translation facilitated by this SW. Family expressed understanding and stated they do not want to prolong the pt.s life. Dr. Mirza and Dr. Reid addressed the familys questions. Rene stated that the family does not have any burial/ cremation plans yet. SW to provide the following resources to the pt.s family: - [facility] [[address] [place], [place] [address] ] [phone] (fax) - [facility] [[address] [place] [phone] ] -[facility] [[address] [place] [address];[phone]] -[facility][[address] [address]; [phone]] -[facility] [[address], [address] [place] [address] ] - [facility] [place] [address] - [facility] [address] [place] [address]
[2020-09-17] MEDS ORDERED: GLUCERNA 1.2 1,000 ML BOTTLE NG PRN (14:30)
[2020-09-17] MEDS ORDERED: DC PROPOFOL WHEN EXTUBATED XX PRN (15:00)
--- NOTE | 2020-09-17 16:52 | NUR ---
FAMILY MEMBERS VISITING ONE BY ONE WEARING MASKS. MORTUARY INFORMATION GIVEN TO NEPHJOLLY OCHOAAN PER TRADING ANALYST INSTRUCTIONS. AFTER FAMILY MEMBERS LEAVE PT WILL BE TERMINALLY EXTUBATED AND GTTS TURNED OFF.
--- NOTE | 2020-09-17 19:00 | NUR ---
AFTER FAMILY VISITED PT WAS TERMINALLY EXTUBATED AT 1730, LEVOPHED GTT TURNED OFF AND NG TUBE WAS REMOVED. PT WAS CLEANED UP, RECTAL TUBE REMOVED AND REPORT GIVEN TO MED/SURG FOR TRANSFER FOR COMFORT CARE.
--- NOTE | 2020-09-17 19:45 | NUR ---
RN OPENING: RECEIVED PT IN BED SLEEPING COMFORTABLY. RECEIVED REPORT TO DAY SHIFT PT IN COMFORT CARE/ MEASURES. PT HAS NO FEVER AT THIS TIME. NO S/S OF RESP DISTRESS. PT QUIET AND IN 2l OF OXYGEN. BED IS DRY. PT WARM TO TOUCH. PT HAS NO COMPLAINT OF PAIN AT THIS TIME. PT HAS WEPING SKIN ALL OVER BODY. WILL CONTINUE TO CHECK PT THOUGHT THE SHIFT.
--- NOTE | 2020-09-17 23:45 | NUR ---
RN NOTES: CERTIFIED HYPERBARIC TECHNOLOGIST NOTIFIED RN REGARDING PT. ASSESSED PT, PT IS PALE IN COLOR. PT NOT RESPONDING TO TOUCH AND PAIN. PTS SKIN WARM TO TOUCH. PUPILS DILATED AND NOT RESPONDING TO LIGHT. PT HAS NO PULSE
--- NOTE | 2020-09-17 23:46 | NUR ---
CONTINUE RN NOTES: PT HAS NO RISE IN BREATH. NO BRACHIAL OR CAROTID PULSE. NO VITALS. PT PULSE OX UNABLE TO DETECT. PT NOT RESPONDING WHEN SPOKEN TO. NOTIFIED CHARGE NOTES. CHARGE NURSE PRONOUNCED . CONTACTED NURSING ULTRASOUND SPEC AT 2355. CONTACTED AND NOTIFIED DR MARTINEZ AT 2400. CONTACTED AND NOTIFIED PTS SON MARY ALICE AT 2405. REPORTED TO [facility] WITH BODY RELEASE NUMBER [id number]. SCHOOL SPEECH THERAPIST AND RN INITIATING POSTMORTEM CARE. KEPT CLEAN AND DRY. PTS BODY TO BE TRANSFER TO [facility].
== END 2020-09-17 23:45 | disposition expired | DRG 720 ==
LOC: ER 13:50 → ICU 16:17 → MED 09-17 19:01
PROVIDERS: ADMIT Registered Nurse; ATTEND Internal Medicine
PROC: 5A1945Z Respiratory Ventilation, 24-96 Consecutive Hours (ICD-10-PCS; principal; 2020-08-22)
PROC: 0BH18EZ Insertion of Endotracheal Airway into Trachea, Via Natural or Artificial Opening Endoscopic (ICD-10-PCS; 2020-08-22)
PROC: 04HL33Z Insertion of Infusion Device into Left Femoral Artery, Percutaneous Approach (ICD-10-PCS; 2020-08-23)
PROC: 02H633Z Insertion of Infusion Device into Right Atrium, Percutaneous Approach (ICD-10-PCS; 2020-08-23)
PROC: B548ZZA Ultrasonography of Superior Vena Cava, Guidance (ICD-10-PCS; 2020-08-23)
PROC: 5A09357 Assistance with Respiratory Ventilation, Less than 24 Consecutive Hours, Continuous Positive Airway Pressure (ICD-10-PCS; 2020-08-30)
PROC: 5A1955Z Respiratory Ventilation, Greater than 96 Consecutive Hours (ICD-10-PCS; 2020-08-31)
PROC: 5A12012 Performance of Cardiac Output, Single, Manual (ICD-10-PCS; 2020-08-31)
PROC: 0BH18EZ Insertion of Endotracheal Airway into Trachea, Via Natural or Artificial Opening Endoscopic (ICD-10-PCS; 2020-08-31)
PROC: 30233N1 Transfusion of Nonautologous Red Blood Cells into Peripheral Vein, Percutaneous Approach (ICD-10-PCS; 2020-09-07)
DX: A41.51 Sepsis due to Escherichia coli [E. coli] (principal); G92 Toxic encephalopathy; J96.01 Acute respiratory failure with hypoxia; N17.0 Acute kidney failure with tubular necrosis; R65.21 Severe sepsis with septic shock; I10 Essential (primary) hypertension; B96.89 Other specified bacterial agents as the cause of diseases classified elsewhere; D64.9 Anemia, unspecified; E83.39 Other disorders of phosphorus metabolism; I46.9 Cardiac arrest, cause unspecified; E46 Unspecified protein-calorie malnutrition; J69.0 Pneumonitis due to inhalation of food and vomit; Z51.5 Encounter for palliative care; E86.1 Hypovolemia; E87.1 Hypo-osmolality and hyponatremia; E87.4 Mixed disorder of acid-base balance; E83.42 Hypomagnesemia; E87.5 Hyperkalemia; D69.59 Other secondary thrombocytopenia; Z89.512 Acquired absence of left leg below knee; E83.51 Hypocalcemia; R62.7 Adult failure to thrive; N39.0 Urinary tract infection, site not specified; Z79.4 Long term (current) use of insulin; M89.9 Disorder of bone, unspecified; E87.2 Acidosis; H54.61 Unqualified visual loss, right eye, normal vision left eye; Z68.26 Body mass index [BMI] 26.0-26.9, adult; K92.2 Gastrointestinal hemorrhage, unspecified; J15.6 Pneumonia due to other Gram-negative bacteria; D68.69 Other thrombophilia; E11.40 Type 2 diabetes mellitus with diabetic neuropathy, unspecified; I48.19 Other persistent atrial fibrillation; E11.65 Type 2 diabetes mellitus with hyperglycemia; I35.2 Nonrheumatic aortic (valve) stenosis with insufficiency; D65 Disseminated intravascular coagulation [defibrination syndrome]; K62.89 Other specified diseases of anus and rectum; E11.51 Type 2 diabetes mellitus with diabetic peripheral angiopathy without gangrene
CPT/HCPCS: 31720; 36415; 36569; 36600; 70450-TC; 71045-TC; 80048-TC; 80053-TC; 80061-TC; 80202-TC; 81001; 82248-TC; 82272-TC; 82533; 82550-TC; 82570-TC; 82728-TC; 82803-TC; 82962-TC; 83605-TC; 83615-TC; 83735-TC; 83880; 83935-TC; 84100-TC; 84155-TC; 84443-TC; 84484-TC; 85025-TC; 85027-TC; 85378-TC; 85396; 85730-TC; 86022; 86140-TC; 86850-TC; 87040-TC; 87070-TC; 87086-TC; 87186-TC; 92526; 92611-TC; 93307-TC; 93308-TC; 94002-TC; 94003-TC; 94640; 94640-TC; 94760-TC; 94799-TC; 99082-TC; A4216; A4624; A6253; A6403; A7526; A9563; C9113; G0378; J0171; J0610; J0885; J1160; J1650; J1815; J1940; J2185; J2370; J2405; J2543; J2930; J3370; J3475; J3480; J3490; J7030; J7040; J7050; J7060; P9016-BL; U0003